=== PATIENT | female | born 1930 | race Caucasian/White ===

== ENCOUNTER 2016-09-18 11:31 | Inpatient (IN) | payer MEDICARE, BC ==
[~2016-09-18] VITALS: Ht 165.1 cm; Wt 51.5 kg
[~2016-09-18 11:31] MED LIST: ASPI-650 PO; CALC1TAB98 PO; DONE10TA7 PO; ERGO50007 PO; FESO4TAB PO; FURO40TA4 PO; LEVO50TA74 PO; LORA-396 PO; MAGN71.5 PO; METH1TAB33 PO; METO100T13 PO; NITR-53 PO; OMEP20CA9 PO; PENT100C6 PO; POTASSIUM CHLORIDE PO; SIMV20TA PO; SITA25TA3 PO; VICES PO; [UNRECOGNIZED DRUG - CODE] PO; [UNRECOGNIZED DRUG - OTHER] PO
[2016-09-18 13:29] VITALS: Ht 165.1 cm; Wt 51.5 kg
[2016-09-18 13:45] VITALS: BP 107/59; PULSE 73; RESP 18
[2016-09-18] MEDS ORDERED: GLUCOSE GEL 15 GRAM TUBE BUCCAL PRN (14:00)
[2016-09-18] MEDS ORDERED: NACL 0.9% 3 ML SYG IV SCH (14:00)
[2016-09-18] MEDS ORDERED: DEXTROSE 50% 50 ML SYRINGE IV PRN ×2 (14:00)
[2016-09-18] MEDS ORDERED: ONDANSETRON 4 MG INJ IV PRN (14:00)
[2016-09-18] MEDS ORDERED: GLUCOSE GEL 15 GRAM TUBE PO PRN ×2 (14:00)
[2016-09-18] MEDS ORDERED: GLUCAGON 1 MG INJ IM PRN (14:00)
[2016-09-18] MEDS: SOD CHLORIDE 0.45% 1,000 ML IV SCH (14:07)
[2016-09-18] MEDS: INSULIN ASPART [NOVOLOG] 3 ML PEN SC SCH ×2 (18:00→20:41)
[2016-09-18 19:12] LABS: ADD UMIC YES; URINE BILIRUBIN (Dip) NEGATIVE (NEGATIVE); URINE BLOOD (Dip) 2+ (NEGATIVE); URINE COLOR LT. YELLOW (YELLOW); URINE GLUCOSE (Dip) NEGATIVE (NEGATIVE); URINE KETONES (Dip) NEGATIVE (NEGATIVE); URINE LEUKOCYTE ESTERASE (Dip) 3+ (NEGATIVE); URINE NITRITE (Dip) NEGATIVE (NEGATIVE); URINE TOTAL PROTEIN (Dip) 1+ (NEGATIVE); URINE UROBILINOGEN (Dip) 0.2 E.U./dL (0.1-1.0)
[2016-09-18 19:17] VITALS: BP 145/59; RESP 16
[2016-09-18 19:27] LABS: BACTERIA,URINE MANY
--- NOTE | 2016-09-18 19:35 | HP ---
DATE OF ADMISSION: 09/18/2016 HISTORY OF PRESENT ILLNESS: This is one of several [facility] admissions for this 86-year-old woman admitted with chief complaint of confusion and dehydration as well as possible ur inary tract infection. Mrs. Samuel had been in her usual state of mind and health. Was seen last by myself in my office les s than a month ago; however, about a week ago family noticed she was slightly different and was not really drinking any fluids. Laboratory work done as an outpatient by visiting nurses showed that he r creatinine was creeping up from the 2s to the 4s and a urine culture was positive for a urinary tr act infection and her white count was markedly elevated as well. The patient was admitted for hydra tion and treatment with antibiotics and evaluating possible change in mental status. The patient badillo s had multiple falls. The patient's past history other than a recent, within the last several month s, admission for similar kind of problem has been one of gradually decreasing activity because of we akness. She has had severe interstitial cystitis which, eventually after multiple surgical attempts at correcting that, wound up with a bladder resection and ileal conduit going to the outside. She has also had cholecystectomy, hysterectomy and appendectomy done in the past. From a medical standp oint, she has been a diabetic for many years and has had chronic renal failure, either secondary to urinary tract issues or her diabetes since her diabetes has really not been terribly difficult to co ntrol. She has also had longstanding history of hypertension, and she has had a fair amount of ____ history of hypertension and recently a gradual cognitive disorder. CURRENT MEDICATIONS: 1. Omeprazole 10 mg daily. 2. Metoprolol 100 mg a day. 3. Simvastatin 20 mg a day. 4. Aspirin 81 mg. 5. Lorazepam 0.5 p.r.n. 6. Calcium carbonate. 7. Lasix. 8. Magnesium chloride. 9. Omeprazole 20 mg. 10. Synthroid 50 mcg. 11. For her diabetes she has been taking 25 mg of Januvia. 12. She takes Vitamin D 50,000 units. 13. Also takes a small amount of potassium. ALLERGIES: SHE IS ALLERGIC TO PENICILLIN, TETANUS, ____ AND SULFA DRUGS TO NAME A FEW. Up until e last several years; however, health was relatively stable. SOCIAL HISTORY: The patient is , has 2 daughters, 3 grandchildren. She does not smoke, occa sional use of alcohol or wine socially. Does drink some coffee, usually has no difficulty sleeping at night. FAMILY HISTORY: Both parents are . Father age 88 of an MA. Mother at 101 eventually of a heart issue, but had old age and longevity. One sister of diabetes. There is family history of diabetes and heart as well as hypertension. REVIEW OF SYSTEMS: HEENT: Other than the cognition has been complaining possibly of headaches lately, it is hard to te ll, just generally failing. CARDIORESPIRATORY: Denies any chest pain or shortness of breath. GASTROINTESTINAL: No melena or hematemesis. GENITOURINARY: Post cystectomy. GYNECOLOGIC: Post hysterectomy. MUSCULOSKELETAL: Positive for minor arthritic symptoms. NEUROPSYCHIATRIC: Unremarkable. GENERAL HEALTH: As above. PHYSICAL EXAMINATION: VITAL SIGNS: The patient's blood pressure was 107/59, pulse was 73 and regular, respirations were 1 8, temperature 97.5 and O2 sat 98% on room air. HEENT: Unremarkable although mucous membranes were somewhat dry. Examination of the head did not r eveal any obvious trauma. Eyes: Pupils were equal, reactive to light and accommodation. Fundi wer e poorly visualized. Tympanic membranes were negative. Nose was negative. Mouth was unremarkable other than Dry mucous membranes. NECK: Supple without any rigidity. Trachea was midline. Thyroid was within normal limits. Neck v eins were flat. Carotid pulses were equal. BACK: Unremarkable. CHEST: Symmetrical. BREASTS AND AXILLARY: Done within the last several months did not reveal any masses. LUNGS: Clear to percussion and auscultation. HEART: Revealed a regular rhythm. No obvious murmurs, rubs, or gallops being elicited. ABDOMEN: Soft, good bowel sounds were noted. Scars from prior surgery were noted. Umbilical herni a was noted. An ileal stoma was noted. GENITALIA: Normal female external genitalia. PELVIC AND RECTAL: Done by her hide curer or urologist did not reveal any significant abnormality . She is post hysterectomy. EXTREMITIES: Did not reveal any clubbing, edema or cyanosis. Peripheral pulses were physiologic. SKIN: Moist and warm without any eruptions. No gross lymphadenopathy was noted. NEUROLOGIC: Grossly intact. IMPRESSION: 1. Altered mental state with a history of head trauma. 2. Urinary tract infection with Escherichia coli resistant to most oral antibiotics. 3. Chronic renal failure. 4. Diabetes mellitus. 5. Hypertension. 6. Status post cystectomy, hysterectomy and cholecystectomy. DISCUSSION: Review of laboratory data done as an outpatient revealed an elevated white count approx imately 17,000, normal hemoglobin and hematocrit. Creatinine was 4.5, BUN 71. Urinalysis showed a urinary tract infection. Urine culture grew out 100,000 colonies of E. coli mostly resistant to any oral antibiotics. PLAN: To admit patient for further IV fluid hydration, management of her renal status and other iss ues with Dr. Clemente, who is her information security associate. We will also order a CAT scan of the brain withou t contrast to rule out a subdural since patient has had multiple falls recently with secondary head trauma. CONDITION ON ADMISSION: Stable. PROGNOSIS: Obviously dependent upon ultimate diagnosis. Dictated By: DOUG BRINK MD SS/NTS Conf#: [id number] DID#: [id number] CC: LUBNA CLEMENTE MD;*EndCC*
[2016-09-18] MEDS ORDERED: CEFEPIME 1GM/50 ML IVPB SCH (20:00)
[2016-09-18 20:19] LABS: BASOPHILS % 0.3 % (0.0-2.0); EOSINOPHILS # 0.2 10^3/ul (0.0-0.5); EOSINOPHILS % 1.1 % (0.0-7.0); HEMATOCRIT 32.2 % (37.0-47.0); HEMOGLOBIN 10.4 g/dl (12.0-16.0); LYMPHOCYTES # 1.4 10^3/ul (0.8-2.9); LYMPHOCYTES % 8.9 % (15.0-51.0); MEAN CORPUSCULAR HEMOGLOBIN 27.9 pg (29.0-33.0); MEAN CORPUSCULAR HGB CONC 32.4 g/dl (32.0-37.0); MEAN CORPUSCULAR VOLUME 86.1 fl (82.0-101.0); MEAN PLATELET VOLUME 7.4 fl (7.4-10.4); MONOCYTE # 1.1 10^3/ul (0.3-0.9); MONOCYTES % 6.7 % (0.0-11.0); PLATELET COUNT 370 10^3/UL (140-440); RED BLOOD COUNT 3.74 10^6/ul (4.20-5.40); RED CELL DISTRIBUTION WIDTH 16.9 % (11.5-14.5); UNCORRECTED WBC 15.7 10^3/ul (4.8-10.8); WHITE BLOOD COUNT 15.7 10^3/ul (4.8-10.8)
[2016-09-18 20:25] LABS: ALBUMIN 3.3 g/dl (3.3-4.9); CONDITION 1; LH ANALYZER COMMENTS 1; POTASSIUM 3.6 mmol/L (3.5-5.1)
[2016-09-18 20:27] LABS: CREATININE 6.08 mg/dl (0.44-1.00)
[2016-09-18 20:28] LABS: ALBUMIN/GLOBULIN RATIO 0.94; CALCIUM 6.5 mg/dl (8.4-10.2); PHOSPHORUS 6.1 mg/dl (2.5-4.9); TOTAL PROTEIN 6.8 g/dl (6.1-8.1)
[2016-09-18] MEDS: METOPROLOL 50 MG TAB PO SCH (20:41)
--- NOTE | 2016-09-18 20:44 | CONS ---
DATE OF ADMISSION: 09/18/2016 DATE OF CONSULTATION: TYPE OF CONSULTATION: Renal. REASON FOR CONSULTATION: Renal failure. Thank you, Dr. Alvarez, for asking me to participate in medical management of this patient. HISTORY OF PRESENT ILLNESS: This 86-year-old female who is well known to me was admitted today because of decreasing renal function. The patient has been at home under the care of her . She has had recent urinary tract infections. Her serum creatinine, which is usually in the 2.2 range, has risen to 4.5 two days ago. The patient has been confused according to the . The patient does suffer from dementia, and over the past 5 days, she has been more confused than usual. She was started on Cipro for a urinary tract infection. I think that the Cipro contributed to her confusion. I did speak to the and decreased the dose of Cipro. She is, according to him, more lucid today. The patient has a history of chronic kidney disease. She has had a cystectomy because of chronic pelvic pain and chronic interstitial cystitis. The patient's appetite has been decreased, and she has had poor oral fluid intake. She has not had any nausea, vomiting or diarrhea. The fluid in her urostomy bag has been cloudy. She did have a urine culture several days ago which grew E coli. It was not sensitive to the usual oral antibiotics, and SHE IS ALLERGIC TO PENICILLIN. She apparently has a RASH WHEN SHE TAKES PENICILLIN. PAST MEDICAL HISTORY: Remarkable for the following: Diabetes mellitus type 2, brain cyst, hypertension, recurrent urinary tract infections, interstitial cystitis, dementia, anemia of chronic disease, hypothyroidism. PAST SURGICAL HISTORY: Total abdominal hysterectomy with bilateral salpingo- oophorectomy, incidental appendectomy, cholecystectomy, cataract extraction, cystectomy with ileal loop creation. FAMILY HISTORY: Father of unknown causes, possibly kidney disease. Mother of diabetes mellitus and complications with possible kidney disease. SOCIAL HISTORY: The patient does not smoke. She drinks alcohol socially. CURRENT MEDICATIONS: Include the followin. Vitamin D 1000 units a day. 2. Zyrtec 10 mg a day. 3. Zoloft 50 mg a day. 4. Pantoprazole 40 mg a day. 5. Levothyroxine 100 mcg a day. 6. Metoprolol 100 mg a day. 7. Acetaminophen for pain. 8. Tramadol for pain 9. Lorazepam 0.5 mg daily for anxiety. 10. Lasix 40 mg a day. 11. Cipro 250 mg a day. PHYSICAL EXAMINATION: GENERAL: At this time reveals an elderly female. No apparent distress. The patient is confused to time. She does not remember the year. VITAL SIGNS: Temperature 97.8, pulse of 70, respirations 16, blood pressure 145 /59, O2 saturation 98% on room air. HEAD: Normocephalic. EYES: Extraocular muscles intact. NOSE AND MOUTH: Normal. NECK: Supple. No neck vein distention. LUNGS: Clear to auscultation. HEART: Regular rhythm. No murmurs, gallops or rubs. ABDOMEN: Soft. She does have a urostomy bag draining urine from an ileal conduit in the right mid quadrant. EXTREMITIES: No peripheral edema. NEUROLOGIC: Grossly intact. IMPRESSION: 1. Acute on chronic renal failure. I suspect some of her recent decrease in renal function is due to dehydration. 2. Dementia with recent change in mental status , probably due to side effect of Cipro. 3. Urinary tract infection. 4. Type 2 diabetes mellitus. 5. Hypertension. PLAN: 1. Routine laboratory tests, urine culture, urinalysis. 2. Start IV fluids.antibiotics 3. Chest x-ray, EKG. 4. Advance diet as tolerated. 5. I did discuss code status with the patient's . He requests a DNR STATUS. I ordered this. Dictated By: LUBNA CLEMENTE MD, ND/RENE Conf#: [id number] DID#: [id number] MTDGamal
[2016-09-18] MEDS: HEPARIN 5,000 UNIT/0.5 ML SYG SC SCH (20:50)
[2016-09-18] MEDS: CEFEPIME 1GM/50 ML (PMX) 50 ML IVPB SCH (20:52)
[2016-09-18] MEDS ORDERED: MAGNESIUM SULFATE 1 GM/D5W 100 ML IVPB ONE (22:00)
[2016-09-18 22:41] LABS: MAGNESIUM 0.8 mg/dl (1.7-2.5); THYROID STIMULATING HORMONE 0.033 MIU/L (0.465-4.680)
--- NOTE | 2016-09-18 23:58 | RADRPT ---
PROCEDURE: XR Chest. CLINICAL INDICATION: cough TECHNIQUE: Single AP portable chest COMPARISON: 07/17/2016 FINDINGS: Cardiac silhouette is mildly enlarged with coarse interstitial fibrotic changes and mild prominence of the pulmonary vascularity. Atherosclerotic calcification of the aorta. Left basilar scarring an d/or atelectasis. The lungs are clear without pleural effusion or focal consolidation. No pneumoth orax. The osseous structures and soft tissues are unremarkable. IMPRESSION: No evidence for active cardiopulmonary disease. Mild vascular prominence. RPTAT:AAJJ Cait Porter Physician Date Time Electronically viewed and signed by Physician Priscilla on 09/18/2016 23:57 PATRICA/
[2016-09-19] MEDS: SOD CHLORIDE 0.45% 1,000 ML IV SCH ×3 (01:12→19:38)
[2016-09-19] MEDS: ACCUCHECK XX SCH (02:00)
--- NOTE | 2016-09-19 02:52 | RADRPT ---
PROCEDURE: CT head, without contrast. CLINICAL INDICATION: Head trauma with clinical suspicion for subdural hematoma. TECHNIQUE: Noncontrast CT examination of the head, with axial, sagittal and coronal reformatted im ages. Automated dose exposure control was employed. CTDI: 44.19 mGy and DLP: 810.25 mGy-cm. COMPARISON: None. FINDINGS: Chronic changes of atrophy and small vessel disease white matter. Note acute hemorrhage. Subarachnoid spaces are substantially preserved and symmetric. Ventricles are unremarkable. Empty sella variant. No mass effect. [place]-white matter distinction is preserved without evident decreased attenuation t o suggest acute or recent infarct. Moderate bilateral maxillary sinusitis, left greater than right, with mucous retention cyst in the r ight maxillary sinus. Sinuses and osseous structures are otherwise unremarkable. IMPRESSION: 1. Moderate bilateral maxillary sinusitis. 2. Chronic changes of atrophy and small vessel disease white matter, and otherwise, no acute proces s in the head. RPTAT: [facility] Physician Jessica Date Time Electronically viewed and signed by Physician Jessica on 09/19/2016 02:51 RS/
[2016-09-19] MEDS: LEVOTHYROXINE 100 MCG TAB PO SCH (05:40)
[2016-09-19] MEDS: PANTOPRAZOLE (EC) 40 MG TAB PO SCH (05:40)
[2016-09-19 08:14] VITALS: BP 122/58; RESP 16
[2016-09-19] MEDS: INSULIN ASPART [NOVOLOG] 3 ML PEN SC SCH ×4 (08:15→20:29)
[2016-09-19 08:18] VITALS: BP 122/58; RESP 16
--- NOTE | 2016-09-19 09:02 | PN ---
DATE: 09/19/2016 TIME: Approximately 7:35 a.m. SUBJECTIVE: The patient is despondent, crying, asking for her to come and visit her. Appar ently he was here last night, but then left. Otherwise the night was fairly uneventful. PHYSICAL EXAMINATION VITAL SIGNS: Revealed the following: Temperature of 97.8, pulse of 70, blood pressure 145/59, resp iratory rate 16, and O2 sat 98%. HEENT: Unremarkable. LUNGS: Clear. HEART: Revealed a regular rhythm. ABDOMEN: Unremarkable. IMPRESSION: 1. Urinary tract infection. 2. Worsening chronic renal failure. 3. Diabetes mellitus type 2. 4. Status post cystectomy for chronic interstitial cystitis. 5. Cognitive disorder. DISCUSSION: Review of laboratory and other data revealed the following: The patient's white count has come down somewhat, but is still at 15.7. Her chemistries revealed a BUN of 80, creatinine of 6 .08, markedly worse renal failure from that before. TSH was 0.003, will get the rest of the thyroid function tests. Accu-Cheks have been within range. Magnesium was significantly low. PLAN: In terms of renal management per Dr. Caceres, in terms of worsening renal failure, antibio tic treatment has been initiated and hopefully the patient's symptoms secondary to urinary tract inf ection will improve. Condition at this point is stable. Dictated By: DOUG BRITT/RENE Conf#: [id number] DID#: [id number]
--- NOTE | 2016-09-19 09:04 | CONS ---
Date/Time of Note Date/Time of Note DATE: 09/19/16 TIME: 08:51 Assessment/Plan Assessment/Plan Chief Complaint/Hosp Course 1.acute renal failure superimposed on CKD , mostly due to dehydration . she is getting IV fluids . 2.dementia , with more confusion today 3. anemia of CKD 4.UTI on cefepime , urine C & S done before admission grew e coli sensitive to Cefepime . 5. low Mag , being replaced Problems: Consultation Date/Type/Reason Admit Date/Time Sep 18, 2016 at 12:23 Initial Consult Date 24 HR Interval Summary Free Text/Dictation She is awake but confused . she is disoriented to time and place . Exam/Review of Systems Vital Signs Vitals Vital Signs Date Time Temp Pulse Resp B/P Pulse Ox O2 Delivery O2 Flow Rate FiO2 09/19/16 08:18 97.9 67 16 122/58 90 Intake and Output 09/18/16 09/18/16 09/19/16 15:00 23:00 07:00 Intake Total 930 ml 1000 ml Output Total 600 ml 400 ml Balance 330 ml 600 ml Exam Constitutional: alert Psych: confusion Respiratory: clear to auscultation Cardiovascular: regular rate and rhythm Gastrointestinal: soft Musculoskeletal: nl extremities to inspection Results Result Diagram: 09/18/16195409/18/161954 Results 24 hrs Laboratory Tests Test 09/18/16 17:21 09/18/16 18:50 09/18/16 19:55 09/18/16 20:38 Bedside Glucose 138 112 Urine Bacteria MANY Urine Bilirubin NEGATIVE Urine Clarity CLOUDY Urine Color LT. YELLOW Urine Glucose NEGATIVE Urine Hemoglobin 2+ H Urine Ketones NEGATIVE Urine Leukocyte Esterase 3+ H Urine Microscopic RBC 5-10 Urine Microscopic WBC >200 Urine Nitrite NEGATIVE Urine Specific [place] 1.015 Urine Total Protein 1+ H Urine Urobilinogen 0.2 E.U./dL Urine pH 5.5 Alanine Aminotransferase (ALT/SGPT) 18 Albumin 3.3 Albumin/Globulin Ratio 0.94 Alkaline Phosphatase 109 Anion Gap 24 H Aspartate Amino Transf (AST/SGOT) 15 Basophils # 0.0 Basophils % 0.3 Blood Morphology Comment Blood Urea Nitrogen 80 H Calcium Level 6.5 L Carbon Dioxide Level 10 L Chloride Level 111 H Creatinine 6.08 H Direct Bilirubin 0.00 Eosinophils # 0.2 Eosinophils % 1.1 Globulin 3.50 H Glucose Level 113 Hematocrit 32.2 L Hemoglobin 10.4 L Indirect Bilirubin 0.0 Lymphocytes # 1.4 Lymphocytes % 8.9 L Magnesium Level 0.8 *L Mean Corpuscular Hemoglobin 27.9 L Mean Corpuscular Hemoglobin Concent 32.4 Mean Corpuscular Volume 86.1 Mean Platelet Volume 7.4 Monocytes # 1.1 H Monocytes % 6.7 Neutrophils # 13.0 H Neutrophils % 83.0 H Nucleated Red Blood Cells # 0.0 Nucleated Red Blood Cells % 0.0 Parathyroid Hormone (Intact) Phosphorus Level 6.1 H Platelet Count 370 # Potassium Level 3.6 Red Blood Count 3.74 L Red Cell Distribution Width 16.9 H Sodium Level 141 Thyroid Stimulating Hormone (TSH) 0.033 L Total Bilirubin 0.0 L Total Protein 6.8 White Blood Count 15.7 #H Test 09/19/16 04:50 09/19/16 08:16 Magnesium Level 1.3 L Bedside Glucose 96 Medications Medications Current Medications Sodium Chloride (1/2 NS) 1,000 ml @ 100 mls/hr Q10H IV Last administered on 01:12; Admin Dose 100 MLS/HR; Start 09/18/16 at 13:38 Ondansetron HCl (Zofran Inj) 4 mg Q6H PRN IV NAUSEA AND/OR VOMITING; Start 09/18 at 14:00 Acetaminophen (Tylenol Tab) 650 mg Q6H PRN PO PAIN LEVEL 1-3 OR FEVER; Start at 14:00 Pantoprazole (Protonix Tab) 40 mg DAILY@06 PO Last administered on 09/19/16 05: 40; Admin Dose 40 MG; Start 09/19/16 at 06:00 Heparin Sodium (Porcine) (Heparin (5000 Units/0.5 ml)) 5,000 unit Q12 SC Last administered on 09/18/16 20:50; Admin Dose 5,000 UNIT; Start 09/18/16 at 21:00 Levothyroxine Sodium (Synthroid) 100 mcg DAILY@06 PO Last administered on 05:40; Admin Dose 100 MCG; Start 09/19/16 at 06:00 Tramadol HCl (Ultram) 50 mg BID PRN PO pain; Start 09/18/16 at 14:00 Lorazepam (Ativan) 0.5 mg BID PRN PO ANXIETY; Start 09/18/16 at 14:00 Cholecalciferol (Vitamin D) 1,000 unit DAILY PO ; Start 09/19/16 at 09:00 Loratadine (Claritin) 10 mg DAILY PO ; Start 09/19/16 at 09:00 Metoprolol Tartrate (Lopressor) 50 mg BID PO Last administered on 09/18/16 20: 41; Admin Dose 50 MG; Start 09/18/16 at 21:00 Sertraline HCl (Zoloft) 50 mg DAILY PO ; Start 09/19/16 at 09:00 Diagnostic Test (Pha) (Accucheck) 1 ea 02 XX ; Start 09/19/16 at 02:00 Miscellaneous Information 1 ea NOTE XX ; Start 09/18/16 at 14:00 Glucose (Glutose) 15 gm Q15M PRN PO DECREASED GLUCOSE; Start 09/18/16 at 14:00 Glucose (Glutose) 22.5 gm Q15M PRN PO DECREASED GLUCOSE; Start 09/18/16 at 14:00 Dextrose (D50w Syringe) 25 ml Q15M PRN IV DECREASED GLUCOSE; Start 09/18/16 at 14:00 Dextrose (D50w Syringe) 50 ml Q15M PRN IV DECREASED GLUCOSE; Start 09/18/16 at 14:00 Glucagon (Glucagen) 1 mg Q15M PRN IM DECREASED GLUCOSE; Start 09/18/16 at 14:00 Glucose 15 gm 15 gm Q15M PRN BUCCAL DECREASED GLUCOSE; Start 09/18/16 at 14:00 Cefepime HCl (Maxipime 1gm/50 ml (Pmx)) 50 ml @ 100 mls/hr Q24H IVPB Last administered on 09/18/16 20:52; Admin Dose 100 MLS/HR; Start 09/18/16 at 20:00 LUBNA CLEMENTE MD Sep 19, 2016 09:01
[2016-09-19 09:37] LABS: ALBUMIN 3.3 g/dl (3.3-4.9)
[2016-09-19 09:38] LABS: POTASSIUM 3.3 mmol/L (3.5-5.1)
[2016-09-19 09:40] LABS: ALBUMIN/GLOBULIN RATIO 0.94; CALCIUM 6.3 mg/dl (8.4-10.2); CREATININE 5.14 mg/dl (0.44-1.00); TOTAL PROTEIN 6.8 g/dl (6.1-8.1)
[2016-09-19] MEDS ORDERED: MAGNESIUM SULFATE 2 GM/50 ML 50 ML IVPB ONE (10:00)
[2016-09-19 10:36] VITALS: BP 127/53; PULSE 67
[2016-09-19] MEDS: CHOLECALCIFEROL 1,000 UNIT TAB PO SCH (10:37)
[2016-09-19] MEDS: LORATADINE 10 MG TAB PO SCH (10:37)
[2016-09-19] MEDS: METOPROLOL 50 MG TAB PO SCH ×2 (10:38→20:32)
[2016-09-19] MEDS: SERTRALINE 50 MG TAB PO SCH (10:38)
[2016-09-19] MEDS: HEPARIN 5,000 UNIT/0.5 ML SYG SC SCH ×2 (10:40→20:28)
[2016-09-19] MEDS: CALCITRIOL 0.25 MCG CAP PO SCH (12:23)
--- NOTE | 2016-09-19 12:24 | RADRPT ---
Vent Rate: 61 bpm RR Interval: 0 msec MI Interval: 164 msec QRS Duration: 80 msec QT Interval: 464 msec QTC Interval: 467 msec P-R-T [place]: 75 - 49 - 53 degrees Normal sinus rhythm Normal ECG Electronically Signed By: Edward Hill [id number]
[2016-09-19] MEDS: CALCIUM ACETATE 667 MG CAP PO SCH ×2 (13:03→18:00)
[2016-09-19 19:22] VITALS: BP 137/61; RESP 16
[2016-09-19] MEDS: CEFEPIME 1GM/50 ML (PMX) 50 ML IVPB SCH (20:19)
[2016-09-19] MEDS: NYSTATIN 30 GM POWDER BTL TOP SCH (20:32)
[2016-09-20] MEDS: SOD CHLORIDE 0.45% 1,000 ML IV SCH (01:22)
[2016-09-20] MEDS: ACCUCHECK XX SCH (02:00)
[2016-09-20] MEDS: traMADol 50 MG TAB PO PRN (02:08)
[2016-09-20] MEDS: PANTOPRAZOLE (EC) 40 MG TAB PO SCH (06:07)
[2016-09-20] MEDS: LEVOTHYROXINE 100 MCG TAB PO SCH (06:07)
[2016-09-20 06:17] LABS: BASOPHILS % 0.1 % (0.0-2.0); EOSINOPHILS # 0.4 10^3/ul (0.0-0.5); EOSINOPHILS % 2.6 % (0.0-7.0); HEMATOCRIT 33.6 % (37.0-47.0); HEMOGLOBIN 11.1 g/dl (12.0-16.0); LYMPHOCYTES # 1.4 10^3/ul (0.8-2.9); LYMPHOCYTES % 9.7 % (15.0-51.0); MEAN CORPUSCULAR HEMOGLOBIN 28.5 pg (29.0-33.0); MEAN CORPUSCULAR HGB CONC 33.1 g/dl (32.0-37.0); MEAN PLATELET VOLUME 7.9 fl (7.4-10.4); MONOCYTES % 7.4 % (0.0-11.0); NEUTROPHIL # 11.2 10^3/ul (1.6-7.5); NEUTROPHILS % 80.2 % (39.0-77.0); PLATELET COUNT 356 10^3/UL (140-440); RED BLOOD COUNT 3.91 10^6/ul (4.20-5.40); RED CELL DISTRIBUTION WIDTH 17.1 % (11.5-14.5)
[2016-09-20 06:34] LABS: CONDITION 1; LH ANALYZER COMMENTS 1
[2016-09-20 06:53] LABS: ALBUMIN 3.1 g/dl (3.3-4.9); POTASSIUM 3.5 mmol/L (3.5-5.1)
[2016-09-20 06:55] LABS: CREATININE 3.78 mg/dl (0.44-1.00)
[2016-09-20 06:56] LABS: ALBUMIN/GLOBULIN RATIO 0.91; TOTAL PROTEIN 6.5 g/dl (6.1-8.1)
[2016-09-20 07:54] VITALS: BP 125/60; RESP 18
[2016-09-20] MEDS: INSULIN ASPART [NOVOLOG] 3 ML PEN SC SCH ×4 (08:15→21:00)
[2016-09-20 08:37] LABS: FREE T3 4.36 pg/ml (2.77-5.27)
[2016-09-20 08:50] LABS: THYROID STIMULATING HORMONE 0.023 MIU/L (0.465-4.680)
[2016-09-20] MEDS: METOPROLOL 50 MG TAB PO SCH ×2 (09:00→21:52)
--- NOTE | 2016-09-20 09:13 | CONS ---
Date/Time of Note Date/Time of Note DATE: 09/20/16 TIME: 09:08 Consult Date/Type/Reason Admit Date/Time Sep 18, 2016 at 12:23 Initial Consult Date Type of Consultation: renal Subjective Lethargic but arouseable. Not in pain. Objective Vital Signs Date Time Temp Pulse Resp B/P Pulse Ox O2 Delivery O2 Flow Rate FiO2 09/20/16 07:54 98.1 65 18 125/60 96 Intake and Output 09/19/16 09/19/16 09/20/16 15:00 23:00 07:00 Intake Total 650 ml 1090 ml 400 ml Output Total 650 ml 600 ml Balance 650 ml 440 ml -200 ml Results/Medications Result Diagram: 09/20/16 0459 09/20/16 0459 Results 24 hrs Laboratory Tests Test 09/19/16 09:18 09/19/16 12:06 09/19/16 17:28 09/19/16 20:25 Alanine Aminotransferase (ALT/SGPT) 24 Albumin 3.3 Albumin/Globulin Ratio 0.94 Alkaline Phosphatase 111 Anion Gap 21 H Aspartate Amino Transf (AST/SGOT) 16 Blood Urea Nitrogen 73 H Calcium Level 6.3 L Carbon Dioxide Level 10 L Chloride Level 111 H Creatinine 5.14 H Direct Bilirubin 0.00 Globulin 3.50 H Glucose Level 94 Indirect Bilirubin 0.0 Potassium Level 3.3 L Sodium Level 139 Total Bilirubin 0.0 L Total Protein 6.8 Bedside Glucose 106 112 159 Test 09/20/16 04:59 Alanine Aminotransferase (ALT/SGPT) 21 Albumin 3.1 L Albumin/Globulin Ratio 0.91 Alkaline Phosphatase 117 Anion Gap 22 H Aspartate Amino Transf (AST/SGOT) 16 Basophils # 0.0 Basophils % 0.1 Blood Morphology Comment Blood Urea Nitrogen 63 H Calcium Level 7.0 L Carbon Dioxide Level 10 L Chloride Level 111 H Creatinine 3.78 #H Direct Bilirubin 0.00 Eosinophils # 0.4 Eosinophils % 2.6 Free Thyroxine 1.34 Free Triiodothyronine (T3) pg/mL 4.36 Globulin 3.40 H Glucose Level 86 Hematocrit 33.6 L Hemoglobin 11.1 L Indirect Bilirubin 0.0 Lymphocytes # 1.4 Lymphocytes % 9.7 L Magnesium Level 2.0 Mean Corpuscular Hemoglobin 28.5 L Mean Corpuscular Hemoglobin Concent 33.1 Mean Corpuscular Volume 86.0 Mean Platelet Volume 7.9 Monocytes # 1.0 H Monocytes % 7.4 Neutrophils # 11.2 H Neutrophils % 80.2 H Nucleated Red Blood Cells # 0.0 Nucleated Red Blood Cells % 0.0 Platelet Count 356 Potassium Level 3.5 Red Blood Count 3.91 L Red Cell Distribution Width 17.1 H Sodium Level 139 Thyroid Stimulating Hormone (TSH) 0.023 L Total Bilirubin 0.0 L Total Protein 6.5 White Blood Count 14.0 H Medications Current Medications Sodium Chloride (1/2 NS) 1,000 ml @ 100 mls/hr Q10H IV Last administered on 01:22; Admin Dose 100 MLS/HR; Start 09/18/16 at 13:38 Ondansetron HCl (Zofran Inj) 4 mg Q6H PRN IV NAUSEA AND/OR VOMITING; Start 09/18 at 14:00 Acetaminophen (Tylenol Tab) 650 mg Q6H PRN PO PAIN LEVEL 1-3 OR FEVER; Start at 14:00 Pantoprazole (Protonix Tab) 40 mg DAILY@06 PO Last administered on 09/20/16 06: 07; Admin Dose 40 MG; Start 09/19/16 at 06:00 Heparin Sodium (Porcine) (Heparin (5000 Units/0.5 ml)) 5,000 unit Q12 SC Last administered on 09/19/16 20:28; Admin Dose 5,000 UNIT; Start 09/18/16 at 21:00 Levothyroxine Sodium (Synthroid) 100 mcg DAILY@06 PO Last administered on 06:07; Admin Dose 100 MCG; Start 09/19/16 at 06:00 Tramadol HCl (Ultram) 50 mg BID PRN PO pain Last administered on 09/20/16 02:08 ; Admin Dose 50 MG; Start 09/18/16 at 14:00 Lorazepam (Ativan) 0.5 mg BID PRN PO ANXIETY; Start 09/18/16 at 14:00 Cholecalciferol (Vitamin D) 1,000 unit DAILY PO Last administered on 09/19/16 10:37; Admin Dose 1,000 UNIT; Start 09/19/16 at 09:00 Loratadine (Claritin) 10 mg DAILY PO Last administered on 09/19/16 10:37; Admin Dose 10 MG; Start 09/19/16 at 09:00 Metoprolol Tartrate (Lopressor) 50 mg BID PO Last administered on 09/19/16 20: 32; Admin Dose 50 MG; Start 09/18/16 at 21:00 Sertraline HCl (Zoloft) 50 mg DAILY PO Last administered on 09/19/16 10:38; Admin Dose 50 MG; Start 09/19/16 at 09:00 Diagnostic Test (Pha) (Accucheck) 1 ea 02 XX ; Start 09/19/16 at 02:00 Miscellaneous Information 1 ea NOTE XX ; Start 09/18/16 at 14:00 Glucose (Glutose) 15 gm Q15M PRN PO DECREASED GLUCOSE; Start 09/18/16 at 14:00 Glucose (Glutose) 22.5 gm Q15M PRN PO DECREASED GLUCOSE; Start 09/18/16 at 14:00 Dextrose (D50w Syringe) 25 ml Q15M PRN IV DECREASED GLUCOSE; Start 09/18/16 at 14:00 Dextrose (D50w Syringe) 50 ml Q15M PRN IV DECREASED GLUCOSE; Start 09/18/16 at 14:00 Glucagon (Glucagen) 1 mg Q15M PRN IM DECREASED GLUCOSE; Start 09/18/16 at 14:00 Glucose 15 gm 15 gm Q15M PRN BUCCAL DECREASED GLUCOSE; Start 09/18/16 at 14:00 Cefepime HCl (Maxipime 1gm/50 ml (Pmx)) 50 ml @ 100 mls/hr Q24H IVPB Last administered on 09/19/16 20:19; Admin Dose 100 MLS/HR; Start 09/18/16 at 20:00 Calcitriol (Rocaltrol) 0.25 mcg DAILY PO Last administered on 09/19/16 12:23; Admin Dose 0.25 MCG; Start 09/19/16 at 10:00 Nystatin (Nystatin Powder) 1 applic BID TOP Last administered on 09/19/16 20:32 ; Admin Dose 1 APPLIC; Start 09/19/16 at 21:00 Heent: Neg lungs: clear cor: regular and no edema gi: abdomen soft Extrems: no edema Assessment/Plan Chief Complaint/Hosp Course urinary infection and dehydration improving renal function metabolic acidosis Plan: add bicarb to iv fluids f/up labs Problems: CRISTI AZUL MD Sep 20, 2016 09:13
[2016-09-20] MEDS: LORATADINE 10 MG TAB PO SCH (09:29)
[2016-09-20] MEDS: CALCIUM ACETATE 667 MG CAP PO SCH ×3 (09:29→18:33)
[2016-09-20] MEDS: CALCITRIOL 0.25 MCG CAP PO SCH (09:29)
[2016-09-20] MEDS: SERTRALINE 50 MG TAB PO SCH (09:31)
[2016-09-20] MEDS: NYSTATIN 30 GM POWDER BTL TOP SCH ×2 (09:31→21:55)
[2016-09-20] MEDS: CHOLECALCIFEROL 1,000 UNIT TAB PO SCH (09:31)
[2016-09-20] MEDS: HEPARIN 5,000 UNIT/0.5 ML SYG SC SCH ×2 (09:33→22:04)
--- NOTE | 2016-09-20 11:05 | PN ---
Date/Time of Note Date/Time of Note DATE: 09/20/16 TIME: 11:00 Assessment/Plan VTE Prophylaxis VTE Prophylaxis Intervention: heparin Lines/Catheters IV C[facility]ter Type (from [facility]): Peripheral IV Urinary Cath still in place: No Assessment/Plan Problems: (1) Metabolic acidosis with normal anion gap and failure of bicarbonate regeneration Status: Acute Comment: Nephrology adding NaHCO3 to IVF. (2) Major depressive disorder, single episode, mild Status: Acute Comment: On sertraline (3) Thyrotoxicosis, exogenous iatrogenic Status: Acute Comment: On LT4 100 mcg/d for chronic hypothyroidism. 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 Cont. cefepime. (5) Recurrent UTI Status: Acute Comment: Recurrent. Cont. cefepime. (6) [id number] renal failure Status: Acute Comment: Improving. Back to baseline. Cont. care by nephrology (7) Type 2 diabetes mellitus with diabetic chronic kidney disease Status: Chronic Comment: Glucose levels controlled. Not even on linagliptin currently. Will monitor. (8) Mild cognitive disorder Status: Chronic Comment: Worse w/ acute illness. Will monitor mental status. Subjective 24 Hr Interval Summary Subjective hx not possible: other (waking from nap, confused and non-directed when answering questions) Exam/Review of Systems Vital Signs Vitals VS - Last 72 Hours, by Label Date Time Temp Pulse Resp B/P Pulse Ox O2 Delivery O2 Flow Rate FiO2 09/20/16 07:54 98.1 65 18 125/60 96 09/19/16 19:22 98.4 63 16 137/61 96 09/19/16 10:36 67 127/53 09/19/16 08:18 97.9 67 16 122/58 90 09/19/16 08:14 97.9 67 16 122/58 90 09/18/16 19:17 97.8 70 16 145/59 98 09/18/16 13:45 97.5 73 18 107/59 98 Vital Signs Date Time Temp Pulse Resp B/P Pulse Ox O2 Delivery O2 Flow Rate FiO2 09/20/16 07:54 98.1 65 18 125/60 96 Intake and Output 09/19/16 09/19/16 09/20/16 15:00 23:00 07:00 Intake Total 650 ml 1090 ml 400 ml Output Total 650 ml 600 ml Balance 650 ml 440 ml -200 ml Exam Constitutional: frail, No alert, No oriented Psych: confusion Respiratory: clear to auscultation, normal air movement Cardiovascular: nl pulses, regular rate and rhythm, No edema, No murmurs/extra sounds, No rub Gastrointestinal: bowel sounds, nl liver, spleen, non-tender, soft, No mass, No rebound or guarding Musculoskeletal: nl extremities to inspection Extremities: normal pulses, No clubbing, No cyanosis, No edema Neurological: confused, lethargic, nl speech, nl strength Additional Comments Bedside Glucose - 72 Hours Test 09/18/16 17:21 09/18/16 20:38 09/19/16 08:16 09/19/16 12:06 Bedside Glucose 138mg/dL (70-220) 112mg/dL (70-220) 96mg/dL (70-220) 106mg/dL (70-220) Test 09/19/16 17:28 09/19/16 20:25 09/20/16 09:28 Bedside Glucose 112mg/dL (70-220) 159mg/dL (70-220) 82mg/dL (70-220) Results Result Diagram: 09/20/16 0459 09/20/16 0459 Results 24 hrs Laboratory Tests Test 09/19/16 12:06 09/19/16 17:28 09/19/16 20:25 09/20/16 04:59 Bedside Glucose 106 112 159 Alanine Aminotransferase (ALT/SGPT) 21 Albumin 3.1 L Albumin/Globulin Ratio 0.91 Alkaline Phosphatase 117 Anion Gap 22 H Aspartate Amino Transf (AST/SGOT) 16 Basophils # 0.0 Basophils % 0.1 Blood Morphology Comment Blood Urea Nitrogen 63 H Calcium Level 7.0 L Carbon Dioxide Level 10 L Chloride Level 111 H Creatinine 3.78 #H Direct Bilirubin 0.00 Eosinophils # 0.4 Eosinophils % 2.6 Free Thyroxine 1.34 Free Triiodothyronine (T3) pg/mL 4.36 Globulin 3.40 H Glucose Level 86 Hematocrit 33.6 L Hemoglobin 11.1 L Indirect Bilirubin 0.0 Lymphocytes # 1.4 Lymphocytes % 9.7 L Magnesium Level 2.0 Mean Corpuscular Hemoglobin 28.5 L Mean Corpuscular Hemoglobin Concent 33.1 Mean Corpuscular Volume 86.0 Mean Platelet Volume 7.9 Monocytes # 1.0 H Monocytes % 7.4 Neutrophils # 11.2 H Neutrophils % 80.2 H Nucleated Red Blood Cells # 0.0 Nucleated Red Blood Cells % 0.0 Platelet Count 356 Potassium Level 3.5 Red Blood Count 3.91 L Red Cell Distribution Width 17.1 H Sodium Level 139 Thyroid Stimulating Hormone (TSH) 0.023 L Total Bilirubin 0.0 L Total Protein 6.5 White Blood Count 14.0 H Test 09/20/16 09:28 Bedside Glucose 82 Medications Medications Current Medications Ondansetron HCl (Zofran Inj) 4 mg Q6H PRN IV NAUSEA AND/OR VOMITING; Start 09/18 at 14:00 Acetaminophen (Tylenol Tab) 650 mg Q6H PRN PO PAIN LEVEL 1-3 OR FEVER; Start at 14:00 Pantoprazole (Protonix Tab) 40 mg DAILY@06 PO Last administered on 09/20/16 06: 07; Admin Dose 40 MG; Start 09/19/16 at 06:00 Heparin Sodium (Porcine) (Heparin (5000 Units/0.5 ml)) 5,000 unit Q12 SC Last administered on 09/20/16 09:33; Admin Dose 5,000 UNIT; Start 09/18/16 at 21:00 Tramadol HCl (Ultram) 50 mg BID PRN PO pain Last administered on 09/20/16 02:08 ; Admin Dose 50 MG; Start 09/18/16 at 14:00 Lorazepam (Ativan) 0.5 mg BID PRN PO ANXIETY; Start 09/18/16 at 14:00 Cholecalciferol (Vitamin D) 1,000 unit DAILY PO Last administered on 09/20/16 09:31; Admin Dose 1,000 UNIT; Start 09/19/16 at 09:00 Loratadine (Claritin) 10 mg DAILY PO Last administered on 09/20/16 09:29; Admin Dose 10 MG; Start 09/19/16 at 09:00 Metoprolol Tartrate (Lopressor) 50 mg BID PO Last administered on 09/19/16 20: 32; Admin Dose 50 MG; Start 09/18/16 at 21:00 Sertraline HCl (Zoloft) 50 mg DAILY PO Last administered on 09/20/16 09:31; Admin Dose 50 MG; Start 09/19/16 at 09:00 Diagnostic Test (Pha) (Accucheck) 1 ea 02 XX ; Start 09/19/16 at 02:00 Miscellaneous Information 1 ea NOTE XX ; Start 09/18/16 at 14:00 Glucose (Glutose) 15 gm Q15M PRN PO DECREASED GLUCOSE; Start 09/18/16 at 14:00 Glucose (Glutose) 22.5 gm Q15M PRN PO DECREASED GLUCOSE; Start 09/18/16 at 14:00 Dextrose (D50w Syringe) 25 ml Q15M PRN IV DECREASED GLUCOSE; Start 09/18/16 at 14:00 Dextrose (D50w Syringe) 50 ml Q15M PRN IV DECREASED GLUCOSE; Start 09/18/16 at 14:00 Glucagon (Glucagen) 1 mg Q15M PRN IM DECREASED GLUCOSE; Start 09/18/16 at 14:00 Glucose 15 gm 15 gm Q15M PRN BUCCAL DECREASED GLUCOSE; Start 09/18/16 at 14:00 Cefepime HCl (Maxipime 1gm/50 ml (Pmx)) 50 ml @ 100 mls/hr Q24H IVPB Last administered on 09/19/16 20:19; Admin Dose 100 MLS/HR; Start 09/18/16 at 20:00 Calcitriol (Rocaltrol) 0.25 mcg DAILY PO Last administered on 09/20/16 09:29; Admin Dose 0.25 MCG; Start 09/19/16 at 10:00 Nystatin 1 applic 1 applic BID TOP Last administered on 09/20/16 09:31; Admin Dose 1 APPLIC; Start 09/19/16 at 21:00 Sodium Bicarbonate/ Sodium Chloride (Na Bicarb/1/2 NS) 1,100 ml @ 75 mls/hr [id number] IV ; Start 09/20/16 at 10:30 Levothyroxine Sodium (Synthroid) 75 mcg DAILY@06 PO ; Start 09/21/16 at 06:00 SHANIA RUCKER MD Sep 20, 2016 11:04
[2016-09-20] MEDS: SODIUM BICARBONATE (IV ADD) 100 MEQ in SOD CHLORIDE 0.45% 1,000 ML IV SCH (12:36)
[2016-09-20 19:10] VITALS: BP 145/63; RESP 20
[2016-09-20] MEDS: CEFEPIME 1GM/50 ML (PMX) 50 ML IVPB SCH (22:42)
[2016-09-21] MEDS: SODIUM BICARBONATE (IV ADD) 100 MEQ in SOD CHLORIDE 0.45% 1,000 ML IV SCH ×2 (01:10→05:21)
[2016-09-21] MEDS: ACCUCHECK XX SCH (02:00)
[2016-09-21] MEDS: PANTOPRAZOLE (EC) 40 MG TAB PO SCH (05:21)
[2016-09-21] MEDS: LEVOTHYROXINE 75 MCG TAB PO SCH (05:21)
[2016-09-21 05:49] LABS: BASOPHILS % 0.1 % (0.0-2.0); EOSINOPHILS # 0.3 10^3/ul (0.0-0.5); EOSINOPHILS % 3.3 % (0.0-7.0); HEMATOCRIT 32.4 % (37.0-47.0); HEMOGLOBIN 10.6 g/dl (12.0-16.0); LYMPHOCYTES # 1.3 10^3/ul (0.8-2.9); LYMPHOCYTES % 12.3 % (15.0-51.0); MEAN CORPUSCULAR HEMOGLOBIN 28.4 pg (29.0-33.0); MEAN CORPUSCULAR HGB CONC 32.7 g/dl (32.0-37.0); MEAN CORPUSCULAR VOLUME 86.9 fl (82.0-101.0); MEAN PLATELET VOLUME 7.6 fl (7.4-10.4); MONOCYTE # 0.9 10^3/ul (0.3-0.9); MONOCYTES % 8.6 % (0.0-11.0); NEUTROPHIL # 7.8 10^3/ul (1.6-7.5); NEUTROPHILS % 75.7 % (39.0-77.0); PLATELET COUNT 333 10^3/UL (140-440); RED BLOOD COUNT 3.73 10^6/ul (4.20-5.40); RED CELL DISTRIBUTION WIDTH 16.9 % (11.5-14.5); UNCORRECTED WBC 10.3 10^3/ul (4.8-10.8); WHITE BLOOD COUNT 10.3 10^3/ul (4.8-10.8)
[2016-09-21 06:08] LABS: CONDITION 1; LH ANALYZER COMMENTS 1
[2016-09-21 06:11] LABS: POTASSIUM 3.3 mmol/L (3.5-5.1)
[2016-09-21 06:14] LABS: CREATININE 2.54 mg/dl (0.44-1.00)
[2016-09-21 06:15] LABS: CALCIUM 7.5 mg/dl (8.4-10.2)
--- NOTE | 2016-09-21 07:36 | CONS ---
Date/Time of Note Date/Time of Note DATE: 09/21/16 TIME: 07:30 Assessment/Plan Assessment/Plan Chief Complaint/Hosp Course urinary infection and dehydration improving renal function metabolic acidosis Plan: add bicarb to iv fluids f/up labs Problems: Additional Assessment/Plan Improved renal function ongoing metabolic acidosis-renal related and should correct with bicarb hypernatremia-needs more free water hypoklamia-k replete. Consultation Date/Type/Reason Admit Date/Time Sep 18, 2016 at 12:23 Type of Consultation: renal Reason for Consultation Renal insufficiency and metabolic acidosis 24 HR Interval Summary Subjective hx not possible: other (More alert today. She says she is thirsty.) Detailed Summary Eyes: no complaints Respiratory: no complaints Cardiovascular: no complaints Gastrointestinal: no complaints Skin: no complaints Exam/Review of Systems Vital Signs Vitals Vital Signs Date Time Temp Pulse Resp B/P Pulse Ox O2 Delivery O2 Flow Rate FiO2 09/20/16 19:10 98.2 71 20 145/63 100 Intake and Output 09/20/16 09/20/16 09/21/16 15:00 23:00 07:00 Intake Total 1000 ml 570 ml 920 ml Output Total 575 ml 700 ml Balance 1000 ml -5 ml 220 ml Results Result Diagram: 09/21/16 0450 09/21/16 0450 Results 24 hrs Laboratory Tests Test 09/20/16 09:28 09/20/16 10:52 09/20/16 12:33 09/20/16 17:39 Bedside Glucose 82 76 102 85 Test 09/20/16 21:54 09/21/16 04:50 Bedside Glucose 90 Anion Gap 21 H Basophils # 0.0 Basophils % 0.1 Blood Morphology Comment Blood Urea Nitrogen 51 H Calcium Level 7.5 L Carbon Dioxide Level 11 L Chloride Level 116 H Creatinine 2.54 #H Eosinophils # 0.3 Eosinophils % 3.3 Glucose Level 78 Hematocrit 32.4 L Hemoglobin 10.6 L Lymphocytes # 1.3 Lymphocytes % 12.3 L Mean Corpuscular Hemoglobin 28.4 L Mean Corpuscular Hemoglobin Concent 32.7 Mean Corpuscular Volume 86.9 Mean Platelet Volume 7.6 Monocytes # 0.9 Monocytes % 8.6 Neutrophils # 7.8 H Neutrophils % 75.7 Nucleated Red Blood Cells # 0.0 Nucleated Red Blood Cells % 0.0 Platelet Count 333 Potassium Level 3.3 L Red Blood Count 3.73 L Red Cell Distribution Width 16.9 H Sodium Level 145 H White Blood Count 10.3 # Medications Medications Current Medications Ondansetron HCl (Zofran Inj) 4 mg Q6H PRN IV NAUSEA AND/OR VOMITING; Start 09/18 at 14:00 Acetaminophen (Tylenol Tab) 650 mg Q6H PRN PO PAIN LEVEL 1-3 OR FEVER; Start at 14:00 Pantoprazole (Protonix Tab) 40 mg DAILY@06 PO Last administered on 09/21/16 05: 21; Admin Dose 40 MG; Start 09/19/16 at 06:00 Heparin Sodium (Porcine) (Heparin (5000 Units/0.5 ml)) 5,000 unit Q12 SC Last administered on 09/20/16 22:04; Admin Dose 5,000 UNIT; Start 09/18/16 at 21:00 Tramadol HCl (Ultram) 50 mg BID PRN PO pain Last administered on 09/20/16 02:08 ; Admin Dose 50 MG; Start 09/18/16 at 14:00 Lorazepam (Ativan) 0.5 mg BID PRN PO ANXIETY; Start 09/18/16 at 14:00 Cholecalciferol (Vitamin D) 1,000 unit DAILY PO Last administered on 09/20/16 09:31; Admin Dose 1,000 UNIT; Start 09/19/16 at 09:00 Loratadine (Claritin) 10 mg DAILY PO Last administered on 09/20/16 09:29; Admin Dose 10 MG; Start 09/19/16 at 09:00 Metoprolol Tartrate (Lopressor) 50 mg BID PO Last administered on 09/20/16 21: 52; Admin Dose 50 MG; Start 09/18/16 at 21:00 Sertraline HCl (Zoloft) 50 mg DAILY PO Last administered on 09/20/16 09:31; Admin Dose 50 MG; Start 09/19/16 at 09:00 Diagnostic Test (Pha) (Accucheck) 1 ea 02 XX ; Start 09/19/16 at 02:00 Miscellaneous Information 1 ea NOTE XX ; Start 09/18/16 at 14:00 Glucose (Glutose) 15 gm Q15M PRN PO DECREASED GLUCOSE; Start 09/18/16 at 14:00 Glucose (Glutose) 22.5 gm Q15M PRN PO DECREASED GLUCOSE; Start 09/18/16 at 14:00 Dextrose (D50w Syringe) 25 ml Q15M PRN IV DECREASED GLUCOSE; Start 09/18/16 at 14:00 Dextrose (D50w Syringe) 50 ml Q15M PRN IV DECREASED GLUCOSE; Start 09/18/16 at 14:00 Glucagon (Glucagen) 1 mg Q15M PRN IM DECREASED GLUCOSE; Start 09/18/16 at 14:00 Glucose 15 gm 15 gm Q15M PRN BUCCAL DECREASED GLUCOSE; Start 09/18/16 at 14:00 Cefepime HCl (Maxipime 1gm/50 ml (Pmx)) 50 ml @ 100 mls/hr Q24H IVPB Last administered on 09/20/16 22:42; Admin Dose 100 MLS/HR; Start 09/18/16 at 20:00 Calcitriol (Rocaltrol) 0.25 mcg DAILY PO Last administered on 09/20/16 09:29; Admin Dose 0.25 MCG; Start 09/19/16 at 10:00 Nystatin 1 applic 1 applic BID TOP Last administered on 09/20/16 21:55; Admin Dose 1 APPLIC; Start 09/19/16 at 21:00 Sodium Bicarbonate/ Sodium Chloride (Na Bicarb/1/2 NS) 1,100 ml @ 75 mls/hr [id number] IV Last administered on 09/21/16 05:21; Admin Dose 75 MLS/HR; Start 09/20/16 at 10:30 Levothyroxine Sodium (Synthroid) 75 mcg DAILY@06 PO Last administered on 05:21; Admin Dose 75 MCG; Start 09/21/16 at 06:00 CRISTI AZUL MD Sep 21, 2016 07:36
[2016-09-21 07:46] VITALS: BP 151/65; RESP 18
[2016-09-21] MEDS: INSULIN ASPART [NOVOLOG] 3 ML PEN SC SCH ×4 (08:15→20:45)
[2016-09-21] MEDS ORDERED: POTASSIUM CHLORIDE IV SCH (09:00)
[2016-09-21] MEDS ORDERED: DEXTROSE 5% IV SCH (09:00)
[2016-09-21] MEDS ORDERED: SODIUM BICARBONATE IV SCH (09:00)
--- NOTE | 2016-09-21 09:55 | PN ---
Date/Time of Note Date/Time of Note DATE: 09/21/16 TIME: 09:51 Assessment/Plan VTE Prophylaxis VTE Prophylaxis Intervention: heparin Lines/Catheters IV Catheter Type (from [facility]): Peripheral IV Urinary Cath still in place: No Assessment/Plan Problems: (1) Metabolic acidosis with normal anion gap and failure of bicarbonate regeneration Status: Acute Comment: Nephrology continuing bicarb. Now adding KCl to IV b/c of associated hypokalemia (2) Major depressive disorder, single episode, mild Status: Acute Comment: Cont. 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 Sensitive to maxipime which pt. is already on. (5) Recurrent UTI Status: Acute Comment: On maxipime (6) [id number]-rz-[id number] renal failure Status: Acute Comment: Back to baseline level of creatinine. Defer to nephrology (7) Type 2 diabetes mellitus with diabetic chronic kidney disease Status: Chronic Comment: Glucose levels normal w/o any intervention Subjective 24 Hr Interval Summary Subjective hx not possible: pt non-verbal (sleeping) Exam/Review of Systems Vital Signs Vitals VS - Last 72 Hours, by Label Date Time Temp Pulse Resp B/P Pulse Ox O2 Delivery O2 Flow Rate FiO2 09/21/16 07:46 98.8 69 18 151/65 100 09/20/16 19:10 98.2 71 20 145/63 100 09/20/16 07:54 98.1 65 18 125/60 96 09/19/16 19:22 98.4 63 16 137/61 96 09/19/16 10:36 67 127/53 09/19/16 08:18 97.9 67 16 122/58 90 09/19/16 08:14 97.9 67 16 122/58 90 09/18/16 19:17 97.8 70 16 145/59 98 09/18/16 13:45 97.5 73 18 107/59 98 Vital Signs Date Time Temp Pulse Resp B/P Pulse Ox O2 Delivery O2 Flow Rate FiO2 09/21/16 07:46 98.8 69 18 151/65 100 Intake and Output 09/20/16 09/20/16 09/21/16 15:00 23:00 07:00 Intake Total 1000 ml 570 ml 920 ml Output Total 575 ml 700 ml Balance 1000 ml -5 ml 220 ml Exam Constitutional: frail, No alert, No oriented Psych: confusion Respiratory: clear to auscultation, normal air movement Cardiovascular: nl pulses, regular rate and rhythm, No edema, No murmurs/extra sounds, No rub Gastrointestinal: bowel sounds, nl liver, spleen, non-tender, soft, No mass, No rebound or guarding Musculoskeletal: nl extremities to inspection Extremities: normal pulses, No clubbing, No cyanosis, No edema Neurological: lethargic Additional Comments Bedside Glucose - 72 Hours Test 09/18/16 17:21 09/18/16 20:38 09/19/16 08:16 09/19/16 12:06 Bedside Glucose 138mg/dL (70-220) 112mg/dL (70-220) 96mg/dL (70-220) 106mg/dL (70-220) Test 09/19/16 17:28 09/19/16 20:25 09/20/16 09:28 09/20/16 10:52 Bedside Glucose 112mg/dL (70-220) 159mg/dL (70-220) 82mg/dL (70-220) 76mg/dL (70-220) Test 09/20/16 12:33 09/20/16 17:39 09/20/16 21:54 09/21/16 09:06 Bedside Glucose 102mg/dL (70-220) 85mg/dL (70-220) 90mg/dL (70-220) 78mg/dL (70-220) Results Result Diagram: 09/21/16 0450 09/21/16 0450 Results 24 hrs Laboratory Tests Test 09/20/16 10:52 09/20/16 12:33 09/20/16 17:39 09/20/16 21:54 Bedside Glucose 76 102 85 90 Test 09/21/16 04:50 09/21/16 09:06 Anion Gap 21 H Basophils # 0.0 Basophils % 0.1 Blood Morphology Comment Blood Urea Nitrogen 51 H Calcium Level 7.5 L Carbon Dioxide Level 11 L Chloride Level 116 H Creatinine 2.54 #H Eosinophils # 0.3 Eosinophils % 3.3 Glucose Level 78 Hematocrit 32.4 L Hemoglobin 10.6 L Lymphocytes # 1.3 Lymphocytes % 12.3 L Mean Corpuscular Hemoglobin 28.4 L Mean Corpuscular Hemoglobin Concent 32.7 Mean Corpuscular Volume 86.9 Mean Platelet Volume 7.6 Monocytes # 0.9 Monocytes % 8.6 Neutrophils # 7.8 H Neutrophils % 75.7 Nucleated Red Blood Cells # 0.0 Nucleated Red Blood Cells % 0.0 Platelet Count 333 Potassium Level 3.3 L Red Blood Count 3.73 L Red Cell Distribution Width 16.9 H Sodium Level 145 H White Blood Count 10.3 # Bedside Glucose 78 Medications Medications Current Medications Ondansetron HCl (Zofran Inj) 4 mg Q6H PRN IV NAUSEA AND/OR VOMITING; Start 09/18 at 14:00 Acetaminophen (Tylenol Tab) 650 mg Q6H PRN PO PAIN LEVEL 1-3 OR FEVER; Start at 14:00 Pantoprazole (Protonix Tab) 40 mg DAILY@06 PO Last administered on 09/21/16 05: 21; Admin Dose 40 MG; Start 09/19/16 at 06:00 Heparin Sodium (Porcine) (Heparin (5000 Units/0.5 ml)) 5,000 unit Q12 SC Last administered on 09/20/16 22:04; Admin Dose 5,000 UNIT; Start 09/18/16 at 21:00 Tramadol HCl (Ultram) 50 mg BID PRN PO pain Last administered on 09/20/16 02:08 ; Admin Dose 50 MG; Start 09/18/16 at 14:00 Lorazepam (Ativan) 0.5 mg BID PRN PO ANXIETY; Start 09/18/16 at 14:00 Cholecalciferol (Vitamin D) 1,000 unit DAILY PO Last administered on 09/20/16 09:31; Admin Dose 1,000 UNIT; Start 09/19/16 at 09:00 Loratadine (Claritin) 10 mg DAILY PO Last administered on 09/20/16 09:29; Admin Dose 10 MG; Start 09/19/16 at 09:00 Metoprolol Tartrate (Lopressor) 50 mg BID PO Last administered on 09/20/16 21: 52; Admin Dose 50 MG; Start 09/18/16 at 21:00 Sertraline HCl (Zoloft) 50 mg DAILY PO Last administered on 09/20/16 09:31; Admin Dose 50 MG; Start 09/19/16 at 09:00 Diagnostic Test (Pha) (Accucheck) 1 ea 02 XX ; Start 09/19/16 at 02:00 Miscellaneous Information 1 ea NOTE XX ; Start 09/18/16 at 14:00 Glucose (Glutose) 15 gm Q15M PRN PO DECREASED GLUCOSE; Start 09/18/16 at 14:00 Glucose (Glutose) 22.5 gm Q15M PRN PO DECREASED GLUCOSE; Start 09/18/16 at 14:00 Dextrose (D50w Syringe) 25 ml Q15M PRN IV DECREASED GLUCOSE; Start 09/18/16 at 14:00 Dextrose (D50w Syringe) 50 ml Q15M PRN IV DECREASED GLUCOSE; Start 09/18/16 at 14:00 Glucagon (Glucagen) 1 mg Q15M PRN IM DECREASED GLUCOSE; Start 09/18/16 at 14:00 Glucose 15 gm 15 gm Q15M PRN BUCCAL DECREASED GLUCOSE; Start 09/18/16 at 14:00 Cefepime HCl (Maxipime 1gm/50 ml (Pmx)) 50 ml @ 100 mls/hr Q24H IVPB Last administered on 09/20/16 22:42; Admin Dose 100 MLS/HR; Start 09/18/16 at 20:00 Calcitriol (Rocaltrol) 0.25 mcg DAILY PO Last administered on 09/20/16 09:29; Admin Dose 0.25 MCG; Start 09/19/16 at 10:00 Nystatin (Nystatin Powder) 1 applic BID TOP Last administered on 09/20/16 21:55 ; Admin Dose 1 APPLIC; Start 09/19/16 at 21:00 Levothyroxine Sodium 75 mcg 75 mcg DAILY@06 PO Last administered on 09/21/16 05 :21; Admin Dose 75 MCG; Start 09/21/16 at 06:00 Sodium Bicarbonate/ Potassium Chloride/Dextrose (Na Bicarb/KCl/ D5W) 1,105 ml @ 120 mls/hr Q9H13M IV ; Start 09/21/16 at 09:00 SHANIA RUCKER MD Sep 21, 2016 09:55
[2016-09-21] MEDS: SERTRALINE 50 MG TAB PO SCH (09:59)
[2016-09-21] MEDS: CALCITRIOL 0.25 MCG CAP PO SCH (09:59)
[2016-09-21] MEDS: CALCIUM ACETATE 667 MG CAP PO SCH ×3 (09:59→17:59)
[2016-09-21] MEDS: CHOLECALCIFEROL 1,000 UNIT TAB PO SCH (09:59)
[2016-09-21 10:00] VITALS: BP 148/67; PULSE 72
[2016-09-21] MEDS: LORATADINE 10 MG TAB PO SCH (10:00)
[2016-09-21] MEDS: NYSTATIN 30 GM POWDER BTL TOP SCH ×2 (10:01→20:20)
[2016-09-21] MEDS: METOPROLOL 50 MG TAB PO SCH ×2 (10:01→20:20)
[2016-09-21] MEDS: HEPARIN 5,000 UNIT/0.5 ML SYG SC SCH ×2 (10:05→20:25)
[2016-09-21] MEDS: DEXTROSE 5% IV SCH ×2 (11:19→18:00)
[2016-09-21] MEDS: POTASSIUM CHLORIDE IV SCH ×2 (11:19→18:00)
[2016-09-21] MEDS: SODIUM BICARBONATE IV SCH ×2 (11:19→18:00)
[2016-09-21] MEDS: ACETAMINOPHEN 325 MG TAB PO PRN (17:59)
[2016-09-21] MEDS: traMADol 50 MG TAB PO PRN (20:15)
[2016-09-21 20:39] VITALS: BP 157/66; RESP 18
[2016-09-21] MEDS: CEFEPIME 1GM/50 ML (PMX) 50 ML IVPB SCH (20:40)
[2016-09-22] MEDS: ACCUCHECK XX SCH (01:59)
[2016-09-22] MEDS: POTASSIUM CHLORIDE IV SCH ×2 (03:32→04:56)
[2016-09-22] MEDS: DEXTROSE 5% IV SCH ×2 (03:32→04:56)
[2016-09-22] MEDS: SODIUM BICARBONATE IV SCH ×2 (03:32→04:56)
[2016-09-22] MEDS: PANTOPRAZOLE (EC) 40 MG TAB PO SCH (05:17)
[2016-09-22] MEDS: LEVOTHYROXINE 75 MCG TAB PO SCH (05:17)
[2016-09-22] MEDS: ACETAMINOPHEN 325 MG TAB PO PRN ×2 (05:17→22:20)
[2016-09-22 06:19] LABS: CALCIUM 7.5 mg/dl (8.4-10.2); CREATININE 1.85 mg/dl (0.44-1.00)
[2016-09-22 06:23] LABS: POTASSIUM 2.7 mmol/L (3.5-5.1)
[2016-09-22] MEDS ORDERED: POTASSIUM CHLORIDE 20 MEQ in SOD CHLORIDE 0.9% 100 ML IVPB ONE (07:00)
[2016-09-22] MEDS ORDERED: POTASSIUM CHLORIDE 20 MEQ POWDER FOR ORAL SOLN PO ONE ×2 (07:00→15:30)
[2016-09-22 07:49] VITALS: BP 146/66; RESP 20
[2016-09-22] MEDS: INSULIN ASPART [NOVOLOG] 3 ML PEN SC SCH ×4 (08:15→21:00)
--- NOTE | 2016-09-22 08:39 | CONS ---
Date/Time of Note Date/Time of Note DATE: 09/22/16 TIME: 08:35 Assessment/Plan Assessment/Plan Chief Complaint/Hosp Course 1.acute renal failure superimposed on CKD , mostly due to dehydration . she is getting IV fluids and renal function is improving . 2.dementia , she seems depressed today 3. anemia of CKD 4.UTI on cefepime , urine C & S done before admission grew e coli sensitive to Cefepime . 5. low Mag , being replaced 6. low potassium , being replaced . Problems: Consultation Date/Type/Reason Admit Date/Time Sep 18, 2016 at 12:23 Type of Consultation: renal 24 HR Interval Summary Free Text/Dictation she is eating breakfast . She is tearful . Constitutional: no complaints Exam/Review of Systems Vital Signs Vitals Vital Signs Date Time Temp Pulse Resp B/P Pulse Ox O2 Delivery O2 Flow Rate FiO2 09/22/16 07:49 97.7 70 20 146/66 100 Intake and Output 09/21/16 09/21/16 09/22/16 15:00 23:00 07:00 Intake Total 740 ml 735 ml Output Total 875 ml 650 ml Balance -135 ml 85 ml Exam Constitutional: alert Psych: confusion Head: normocephalic Respiratory: clear to auscultation Gastrointestinal: soft Musculoskeletal: nl extremities to inspection Results Result Diagram: 09/21/16 0450 09/22/16 0521 Results 24 hrs Laboratory Tests Test 09/21/16 09:06 09/21/16 12:26 09/21/16 17:28 09/21/16 20:45 Bedside Glucose 78 87 78 108 Test 09/22/16 05:21 09/22/16 07:50 Anion Gap 18 H Blood Urea Nitrogen 43 H Calcium Level 7.5 L Carbon Dioxide Level 21 # Chloride Level 111 H Creatinine 1.85 H Glucose Level 125 # Potassium Level 2.7 *L Sodium Level 147 H Bedside Glucose 122 Medications Medications Current Medications Ondansetron HCl (Zofran Inj) 4 mg Q6H PRN IV NAUSEA AND/OR VOMITING; Start 09/18 at 14:00 Acetaminophen (Tylenol Tab) 650 mg Q6H PRN PO PAIN LEVEL 1-3 OR FEVER Last administered on 09/22/16t 05:17; Admin Dose 650 MG; Start 09/18/16 at 14:00 Pantoprazole (Protonix Tab) 40 mg DAILY@06 PO Last administered on 09/22/16 05: 17; Admin Dose 40 MG; Start 09/19/16 at 06:00 Heparin Sodium (Porcine) (Heparin (5000 Units/0.5 ml)) 5,000 unit Q12 SC Last administered on 09/21/16 20:25; Admin Dose 5,000 UNIT; Start 09/18/16 at 21:00 Tramadol HCl (Ultram) 50 mg BID PRN PO pain Last administered on 09/21/16 20:15 ; Admin Dose 50 MG; Start 09/18/16 at 14:00 Lorazepam (Ativan) 0.5 mg BID PRN PO ANXIETY; Start 09/18/16 at 14:00 Cholecalciferol (Vitamin D) 1,000 unit DAILY PO Last administered on 09/21/16 09:59; Admin Dose 1,000 UNIT; Start 09/19/16 at 09:00 Loratadine (Claritin) 10 mg DAILY PO Last administered on 09/21/16 10:00; Admin Dose 10 MG; Start 09/19/16 at 09:00 Metoprolol Tartrate (Lopressor) 50 mg BID PO Last administered on 09/21/16 20: 20; Admin Dose 50 MG; Start 09/18/16 at 21:00 Sertraline HCl (Zoloft) 50 mg DAILY PO Last administered on 09/21/16 09:59; Admin Dose 50 MG; Start 09/19/16 at 09:00 Diagnostic Test (Pha) (Accucheck) 1 ea 02 XX ; Start 09/19/16 at 02:00 Miscellaneous Information 1 ea NOTE XX ; Start 09/18/16 at 14:00 Glucose (Glutose) 15 gm Q15M PRN PO DECREASED GLUCOSE; Start 09/18/16 at 14:00 Glucose (Glutose) 22.5 gm Q15M PRN PO DECREASED GLUCOSE; Start 09/18/16 at 14:00 Dextrose (D50w Syringe) 25 ml Q15M PRN IV DECREASED GLUCOSE; Start 09/18/16 at 14:00 Dextrose (D50w Syringe) 50 ml Q15M PRN IV DECREASED GLUCOSE; Start 09/18/16 at 14:00 Glucagon (Glucagen) 1 mg Q15M PRN IM DECREASED GLUCOSE; Start 09/18/16 at 14:00 Glucose 15 gm 15 gm Q15M PRN BUCCAL DECREASED GLUCOSE; Start 09/18/16 at 14:00 Cefepime HCl (Maxipime 1gm/50 ml (Pmx)) 50 ml @ 100 mls/hr Q24H IVPB Last administered on 09/21/16 20:40; Admin Dose 100 MLS/HR; Start 09/18/16 at 20:00 Calcitriol (Rocaltrol) 0.25 mcg DAILY PO Last administered on 09/21/16 09:59; Admin Dose 0.25 MCG; Start 09/19/16 at 10:00 Nystatin (Nystatin Powder) 1 applic BID TOP Last administered on 09/21/16 20:20 ; Admin Dose 1 APPLIC; Start 09/19/16 at 21:00 Levothyroxine Sodium 75 mcg 75 mcg DAILY@06 PO Last administered on 09/22/16 05 :17; Admin Dose 75 MCG; Start 09/21/16 at 06:00 Sodium Bicarbonate 100 meq/Potassium Chloride 10 meq/ Dextrose 1,105 ml @ 120 mls/hr Q9H13M IV Last administered on 09/22/16 03:32; Admin Dose 120 MLS/HR; Start 09/21/16 at 10:30 Potassium Chloride/Sodium Chloride (KCl/NS) 110 ml @ 55 mls/hr ONCE ONCE IVPB ; Start 09/22/16 at 07:00; Stop 09/22/16 at 08:59 Potassium Chloride (Klor-Con 20) 20 meq BID PO ; Start 09/22/16 at 09:00; Status LUBNA HAIR MD Sep 22, 2016 08:39
[2016-09-22] MEDS: SERTRALINE 50 MG TAB PO SCH (08:43)
[2016-09-22] MEDS: CALCITRIOL 0.25 MCG CAP PO SCH (08:43)
[2016-09-22] MEDS: CALCIUM ACETATE 667 MG CAP PO SCH ×3 (08:43→17:40)
[2016-09-22] MEDS: CHOLECALCIFEROL 1,000 UNIT TAB PO SCH (08:44)
[2016-09-22] MEDS: LORATADINE 10 MG TAB PO SCH (08:44)
[2016-09-22] MEDS: METOPROLOL 50 MG TAB PO SCH ×2 (08:44→20:12)
[2016-09-22] MEDS: NYSTATIN 30 GM POWDER BTL TOP SCH ×2 (08:45→20:12)
[2016-09-22] MEDS: HEPARIN 5,000 UNIT/0.5 ML SYG SC SCH ×2 (08:51→20:15)
[2016-09-22] MEDS ORDERED: POTASSIUM CHLORIDE (SR) 20 MEQ TAB PO SCH (09:00)
[2016-09-22] MEDS: NA BICARBONATE 650 MG TAB PO SCH ×3 (09:02→20:11)
--- NOTE | 2016-09-22 14:14 | PN ---
DATE: 09/22/2016 TIME: Approximately 7:45 a.m. on 09/22/2016. SUBJECTIVE: Patient is quite weepy at the time of my visit, does not know why. However, was in the middle of at least trying to eat some breakfast and with no complaints other than she is weepy. PHYSICAL EXAMINATION: VITAL SIGNS: Revealed the following, her temperature was 97.7, pulse was 70, respirations were 20, blood pressure was 145/66. O2 sat was 100%. HEENT: Unremarkable. LUNGS: Clear. ABDOMEN: Unremarkable. IMPRESSION: 1. Renal failure, dehydration, resolving. 2. Urinary tract infection, resolving. 3. Cognitive disorder. 4. Diabetes mellitus. 5. Depression. DISCUSSION: Review of laboratory and other data: CBC not available today. Chemistry panel today r evealed a markedly lower potassium. Rest of the electrolytes including glucose which was 125 were f airly manageable. The patient's creatinine has come down to 1.85. Her BUN was 43. PLAN: Per Dr. Caceres probably replace some of her potassium and we will get some help in terms of discharge planning to see whether or not the patient can be progressed. Dictated By: DOUG BRINK MD SS/RENE Conf#: [id number] DID#: [id number]
[2016-09-22] MEDS: POTASSIUM CHLORIDE 20 MEQ POWDER FOR ORAL SOLN PO SCH ×2 (15:46→22:15)
[2016-09-22 19:00] VITALS: BP 165/70; RESP 19
[2016-09-22] MEDS: CEFEPIME 1GM/50 ML (PMX) 50 ML IVPB SCH (20:10)
[2016-09-23 00:30] VITALS: BP 140/66
[2016-09-23] MEDS: ACCUCHECK XX SCH (02:00)
[2016-09-23] MEDS: LORAZEPAM 0.5 MG TAB PO PRN ×2 (02:50→21:34)
[2016-09-23] MEDS: LEVOTHYROXINE 75 MCG TAB PO SCH (05:40)
[2016-09-23] MEDS: PANTOPRAZOLE (EC) 40 MG TAB PO SCH (05:41)
[2016-09-23 05:45] LABS: BASOPHILS % 0.4 % (0.0-2.0); EOSINOPHILS # 0.4 10^3/ul (0.0-0.5); EOSINOPHILS % 3.9 % (0.0-7.0); HEMATOCRIT 31.3 % (37.0-47.0); HEMOGLOBIN 10.4 g/dl (12.0-16.0); LYMPHOCYTES # 1.4 10^3/ul (0.8-2.9); LYMPHOCYTES % 12.6 % (15.0-51.0); MEAN CORPUSCULAR HEMOGLOBIN 28.5 pg (29.0-33.0); MEAN CORPUSCULAR HGB CONC 33.1 g/dl (32.0-37.0); MEAN CORPUSCULAR VOLUME 85.9 fl (82.0-101.0); MEAN PLATELET VOLUME 7.6 fl (7.4-10.4); NEUTROPHIL # 8.5 10^3/ul (1.6-7.5); NEUTROPHILS % 74.1 % (39.0-77.0); PLATELET COUNT 326 10^3/UL (140-440); RED BLOOD COUNT 3.64 10^6/ul (4.20-5.40); RED CELL DISTRIBUTION WIDTH 16.9 % (11.5-14.5); UNCORRECTED WBC 11.4 10^3/ul (4.8-10.8); WHITE BLOOD COUNT 11.4 10^3/ul (4.8-10.8)
[2016-09-23 06:06] LABS: POTASSIUM 3.6 mmol/L (3.5-5.1)
[2016-09-23 06:08] LABS: ALBUMIN/GLOBULIN RATIO 0.93; BILIRUBIN,INDIRECT 0.1 mg/dl (0-1.1); BILIRUBIN,TOTAL 0.1 mg/dl (0.2-1.3); CREATININE 1.57 mg/dl (0.44-1.00); TOTAL PROTEIN 6.2 g/dl (6.1-8.1)
[2016-09-23 06:09] LABS: PHOSPHORUS 2.3 mg/dl (2.5-4.9)
[2016-09-23 06:10] LABS: MAGNESIUM 1.4 mg/dl (1.7-2.5)
[2016-09-23 06:22] LABS: CONDITION 1; LH ANALYZER COMMENTS 1
[2016-09-23 07:39] VITALS: BP 159/72; RESP 16
[2016-09-23] MEDS: INSULIN ASPART [NOVOLOG] 3 ML PEN SC SCH ×4 (08:15→21:00)
--- NOTE | 2016-09-23 08:51 | CONS ---
Date/Time of Note Date/Time of Note DATE: 09/23/16 TIME: 08:44 Assessment/Plan Assessment/Plan Chief Complaint/Hosp Course 1. acute renal failure superimposed on CKD , mostly due to dehydration . she is getting IV fluids and renal function is improving . 2. dementia , more lethargic today because of Ativan . 3. anemia of CKD 4. UTI on cefepime , urine C & S done before admission grew e coli sensitive to Cefepime . 5. low Mag , will replace 6. low potassium , being replaced . 7. will start D/C planning Problems: Consultation Date/Type/Reason Admit Date/Time Sep 18, 2016 at 12:23 Type of Consultation: renal 24 HR Interval Summary Free Text/Dictation She is very lethargic this morning . She was confused and agitated earlier and given Ativan and is now lethargic . She does rouse to verbal stimuli . Subjective hx not possible: pt non-verbal Exam/Review of Systems Vital Signs Vitals Vital Signs Date Time Temp Pulse Resp B/P Pulse Ox O2 Delivery O2 Flow Rate FiO2 09/23/16 07:39 97.8 76 16 159/72 98 Intake and Output 09/22/16 09/22/16 09/23/16 15:00 23:00 07:00 Intake Total 560 ml 530 ml 650 ml Output Total 900 ml 900 ml Balance 560 ml -370 ml -250 ml Exam Psych: confusion Respiratory: clear to auscultation, diminished breath sounds Cardiovascular: regular rate and rhythm Gastrointestinal: soft Musculoskeletal: nl extremities to inspection Results Result Diagram: 09/23/16 0500 09/23/16 0500 Results 24 hrs Laboratory Tests Test 09/22/16 11:58 09/22/16 13:13 09/22/16 17:45 09/22/16 22:13 Bedside Glucose 95 90 105 Potassium Level 3.2 L Test 09/23/16 05:00 09/23/16 08:08 Alanine Aminotransferase (ALT/SGPT) 25 Albumin 3.0 L Albumin/Globulin Ratio 0.93 Alkaline Phosphatase 119 Anion Gap 18 H Aspartate Amino Transf (AST/SGOT) 15 Basophils # 0.0 Basophils % 0.4 Blood Morphology Comment Blood Urea Nitrogen 33 H Calcium Level 8.0 L Carbon Dioxide Level 23 Chloride Level 112 H Creatinine 1.57 H Direct Bilirubin 0.00 Eosinophils # 0.4 Eosinophils % 3.9 Globulin 3.20 Glucose Level 81 # Hematocrit 31.3 L Hemoglobin 10.4 L Indirect Bilirubin 0.1 Lymphocytes # 1.4 Lymphocytes % 12.6 L Magnesium Level 1.4 L Mean Corpuscular Hemoglobin 28.5 L Mean Corpuscular Hemoglobin Concent 33.1 Mean Corpuscular Volume 85.9 Mean Platelet Volume 7.6 Monocytes # 1.0 H Monocytes % 9.0 Neutrophils # 8.5 H Neutrophils % 74.1 Nucleated Red Blood Cells # 0.0 Nucleated Red Blood Cells % 0.0 Phosphorus Level 2.3 L Platelet Count 326 Potassium Level 3.6 Red Blood Count 3.64 L Red Cell Distribution Width 16.9 H Sodium Level 149 H Total Bilirubin 0.1 L Total Protein 6.2 White Blood Count 11.4 H Bedside Glucose 87 Medications Medications Current Medications Ondansetron HCl (Zofran Inj) 4 mg Q6H PRN IV NAUSEA AND/OR VOMITING; Start 09/18 at 14:00 Acetaminophen (Tylenol Tab) 650 mg Q6H PRN PO PAIN LEVEL 1-3 OR FEVER Last administered on 09/22/16 22:20; Admin Dose 650 MG; Start 09/18/16 at 14:00 Pantoprazole (Protonix Tab) 40 mg DAILY@06 PO Last administered on 09/23/16 05 :41; Admin Dose 40 MG; Start 09/19/16 at 06:00 Heparin Sodium (Porcine) (Heparin (5000 Units/0.5 ml)) 5,000 unit Q12 SC Last administered on 09/22/16 20:15; Admin Dose 5,000 UNIT; Start 09/18/16 at 21:00 Tramadol HCl (Ultram) 50 mg BID PRN PO pain Last administered on 09/21/16 20:15 ; Admin Dose 50 MG; Start 09/18/16 at 14:00 Lorazepam (Ativan) 0.5 mg BID PRN PO ANXIETY Last administered on 09/23/16 02: 50; Admin Dose 0.5 MG; Start 09/18/16 at 14:00 Cholecalciferol (Vitamin D) 1,000 unit DAILY PO Last administered on 09/22/16 08:44; Admin Dose 1,000 UNIT; Start 09/19/16 at 09:00 Loratadine (Claritin) 10 mg DAILY PO Last administered on 09/22/16 08:44; Admin Dose 10 MG; Start 09/19/16 at 09:00 Metoprolol Tartrate (Lopressor) 50 mg BID PO Last administered on 09/22/16 20: 12; Admin Dose 50 MG; Start 09/18/16 at 21:00 Sertraline HCl (Zoloft) 50 mg DAILY PO Last administered on 09/22/16 08:43; Admin Dose 50 MG; Start 09/19/16 at 09:00 Diagnostic Test (Pha) (Accucheck) 1 ea 02 XX ; Start 09/19/16 at 02:00 Miscellaneous Information 1 ea NOTE XX ; Start 09/18/16 at 14:00 Glucose (Glutose) 15 gm Q15M PRN PO DECREASED GLUCOSE; Start 09/18/16 at 14:00 Glucose (Glutose) 22.5 gm Q15M PRN PO DECREASED GLUCOSE; Start 09/18/16 at 14:00 Dextrose (D50w Syringe) 25 ml Q15M PRN IV DECREASED GLUCOSE; Start 09/18/16 at 14:00 Dextrose (D50w Syringe) 50 ml Q15M PRN IV DECREASED GLUCOSE; Start 09/18/16 at 14:00 Glucagon (Glucagen) 1 mg Q15M PRN IM DECREASED GLUCOSE; Start 09/18/16 at 14:00 Glucose 15 gm 15 gm Q15M PRN BUCCAL DECREASED GLUCOSE; Start 09/18/16 at 14:00 Cefepime HCl (Maxipime 1gm/50 ml (Pmx)) 50 ml @ 100 mls/hr Q24H IVPB Last administered on 09/22/16 20:10; Admin Dose 100 MLS/HR; Start 09/18/16 at 20:00 Calcitriol (Rocaltrol) 0.25 mcg DAILY PO Last administered on 09/22/16 08:43; Admin Dose 0.25 MCG; Start 09/19/16 at 10:00 Nystatin (Nystatin Powder) 1 applic BID TOP Last administered on 09/22/16 20:12 ; Admin Dose 1 APPLIC; Start 09/19/16 at 21:00 Levothyroxine Sodium (Synthroid) 75 mcg DAILY@06 PO Last administered on 05:40; Admin Dose 75 MCG; Start 09/21/16 at 06:00 Sodium Bicarbonate (Sodium Bicarbonate Tab) 650 mg TID PO Last administered on 09/22/16t 20:11; Admin Dose 650 MG; Start 09/22/16 at 09:00 LUBNA CLEMENTE MD Sep 23, 2016 08:51
[2016-09-23] MEDS: CHOLECALCIFEROL 1,000 UNIT TAB PO SCH (09:48)
[2016-09-23] MEDS: POTASSIUM CHLORIDE 20 MEQ POWDER FOR ORAL SOLN PO SCH (09:48)
[2016-09-23] MEDS: CALCITRIOL 0.25 MCG CAP PO SCH (09:48)
[2016-09-23] MEDS: SERTRALINE 50 MG TAB PO SCH (09:48)
[2016-09-23] MEDS: LORATADINE 10 MG TAB PO SCH (09:48)
[2016-09-23] MEDS: NA BICARBONATE 650 MG TAB PO SCH ×3 (09:48→21:19)
[2016-09-23] MEDS: METOPROLOL 50 MG TAB PO SCH ×2 (09:48→21:20)
[2016-09-23] MEDS: CALCIUM ACETATE 667 MG CAP PO SCH ×3 (09:48→18:33)
[2016-09-23] MEDS: NYSTATIN 30 GM POWDER BTL TOP SCH ×2 (09:49→21:34)
[2016-09-23] MEDS ORDERED: MAGNESIUM SULFATE 2 GM/50 ML 50 ML IVPB ONE (10:00)
[2016-09-23] MEDS: HEPARIN 5,000 UNIT/0.5 ML SYG SC SCH ×2 (11:07→21:30)
--- NOTE | 2016-09-23 14:38 | PN ---
DATE: 09/23/2016 TIME: Approximately 8 a.m. SUBJECTIVE: The patient not really answering questions, albeit is arousable and does turn my way, b ut appears to be quite sleepy. PHYSICAL EXAMINATION: VITAL SIGNS: Revealed the following: The patient's blood pressure is 159/72, pulse 76, temperature 97.8, respirations 16, and O2 sat 98%. HEENT: Unremarkable. LUNGS: Clear. HEART: Reveals a regular rhythm. IMPRESSION: 1. Dehydration, resolving. 2. Chronic renal failure. 3. Diabetes mellitus. 4. Cognitive disorder. 5. Depression. DISCUSSION: Review of laboratory and other data reveals the following: The patient's CBC today rev eals white count of 11.4, hemoglobin of 10.4, hematocrit which is stable. Chemistries done today re vealed normal electrolytes. BUN is 33; however, creatinine is down to 1.57, glucose is 81, and phos phorus and magnesium appear to be low as is her albumin. The rest of the laboratory appears to be w ithin range. Awaiting case management and other appropriate input. Will discuss the patient with her family. CONDITION today is stable; however, she seems to be withdrawing more than she had been before. Dictated By: DOUG BRITT/RENE Conf#: [id number] DID#: [id number]
[2016-09-23 19:00] VITALS: BP 141/57; RESP 18
[2016-09-23] MEDS: CEFEPIME 1GM/50 ML (PMX) 50 ML IVPB SCH (21:19)
[2016-09-24] MEDS: ACCUCHECK XX SCH (02:00)
[2016-09-24] MEDS: LEVOTHYROXINE 75 MCG TAB PO SCH (05:50)
[2016-09-24] MEDS: PANTOPRAZOLE (EC) 40 MG TAB PO SCH (05:50)
[2016-09-24 06:02] LABS: ALBUMIN 2.9 g/dl (3.3-4.9)
[2016-09-24 06:03] LABS: POTASSIUM 3.8 mmol/L (3.5-5.1)
[2016-09-24 06:05] LABS: ALBUMIN/GLOBULIN RATIO 0.93; BILIRUBIN,INDIRECT 0.1 mg/dl (0-1.1); BILIRUBIN,TOTAL 0.1 mg/dl (0.2-1.3); CREATININE 1.39 mg/dl (0.44-1.00)
[2016-09-24 06:06] LABS: BASOPHILS % 0.3 % (0.0-2.0); CALCIUM 8.2 mg/dl (8.4-10.2); EOSINOPHILS # 0.6 10^3/ul (0.0-0.5); EOSINOPHILS % 4.7 % (0.0-7.0); HEMATOCRIT 31.5 % (37.0-47.0); HEMOGLOBIN 10.5 g/dl (12.0-16.0); LYMPHOCYTES # 1.4 10^3/ul (0.8-2.9); LYMPHOCYTES % 11.4 % (15.0-51.0); MEAN CORPUSCULAR HGB CONC 33.3 g/dl (32.0-37.0); MEAN CORPUSCULAR VOLUME 87.2 fl (82.0-101.0); MEAN PLATELET VOLUME 7.6 fl (7.4-10.4); MONOCYTES % 7.7 % (0.0-11.0); NEUTROPHIL # 9.5 10^3/ul (1.6-7.5); NEUTROPHILS % 75.9 % (39.0-77.0); PLATELET COUNT 302 10^3/UL (140-440); RED BLOOD COUNT 3.61 10^6/ul (4.20-5.40); RED CELL DISTRIBUTION WIDTH 17.1 % (11.5-14.5); UNCORRECTED WBC 12.5 10^3/ul (4.8-10.8); WHITE BLOOD COUNT 12.5 10^3/ul (4.8-10.8)
[2016-09-24 06:10] LABS: CONDITION 1; LH ANALYZER COMMENTS 1
[2016-09-24] MEDS: INSULIN ASPART [NOVOLOG] 3 ML PEN SC SCH ×4 (08:15→21:00)
[2016-09-24] MEDS: LORATADINE 10 MG TAB PO SCH (08:39)
[2016-09-24] MEDS: SERTRALINE 50 MG TAB PO SCH (08:39)
[2016-09-24] MEDS: NA BICARBONATE 650 MG TAB PO SCH ×3 (08:40→21:22)
[2016-09-24] MEDS: CALCITRIOL 0.25 MCG CAP PO SCH (08:40)
[2016-09-24] MEDS: CALCIUM ACETATE 667 MG CAP PO SCH ×4 (08:40→17:39)
[2016-09-24] MEDS: METOPROLOL 50 MG TAB PO SCH ×2 (08:41→21:22)
[2016-09-24] MEDS: POTASSIUM CHLORIDE 20 MEQ POWDER FOR ORAL SOLN PO SCH (08:41)
[2016-09-24] MEDS: CHOLECALCIFEROL 1,000 UNIT TAB PO SCH (08:41)
[2016-09-24 08:42] VITALS: BP 172/72; RESP 16
[2016-09-24] MEDS: NYSTATIN 30 GM POWDER BTL TOP SCH ×2 (09:00→21:23)
[2016-09-24] MEDS: HEPARIN 5,000 UNIT/0.5 ML SYG SC SCH ×2 (09:38→21:48)
[2016-09-24] MEDS: traMADol 50 MG TAB PO PRN (09:53)
--- NOTE | 2016-09-24 11:16 | PN ---
DATE: 09/24/2016 SUBJECTIVE: The patient a little bit more talkative, but still weepy. No particular complaints and really does not answer questions appropriately. PHYSICAL EXAMINATION: VITAL SIGNS: Reveal blood pressure 141/57, temperature 98.8, pulse 71, respirations 18, O2 99%. HEENT: Unremarkable. LUNGS: Clear. HEART: Reveals regular rhythm. ABDOMEN: Unremarkable. IMPRESSION: 1. Chronic renal failure and dehydration, resolving. 2. Probable depression/cognitive disorder. 3. Diabetes mellitus type 2. 4. Stable health. Review of laboratory and other data reveals the following: The patient's CBC reveals a white count of 12.5, hemoglobin of 10.5, which is fairly steady. Chemistries reveal normal electrolytes. Creat inine is down to 1.39. Glucose has been running in the 90 range. Rest of the laboratory other than minimal elevated alkaline phosphatase was normal. DISCUSSION: Awaiting possible psych consult and also case management in terms of placement since th e patient appears to be relatively stable at this particular point in time, at least medically speak ing. Dictated By: DOUG BIRNK MD SS/NTS Conf#: [id number] DID#: [id number]
[2016-09-24] MEDS ORDERED: VANCOMYCIN HCL 250 MG/5ML POSYG PO SCH (12:00)
[2016-09-24] MEDS: LACTOBACILLUS CHEW TAB PO SCH ×2 (12:37→21:22)
[2016-09-24] MEDS: VANCOMYCIN HCL 250 MG/5ML POSYG PO SCH ×3 (12:37→23:45)
--- NOTE | 2016-09-24 16:24 | CONS ---
DATE OF ADMISSION: 09/18/2016 DATE OF CONSULTATION: 09/23/2016 TYPE OF CONSULTATION: Infectious Disease. REASON FOR CONSULTATION: Antibiotic management. HISTORY OF PRESENT ILLNESS: Gladys Samuel is a very frail 86-year-old female who comes in with con fusion, dehydration and possible UTI. Her past problems include: 1. Adult-onset diabetes mellitus. 2. History of a brain cyst. 3. Hypertension. 4. Recurrent UTIs. 5. Interstitial cystitis. 6. Dementia. 7. Anemia of chronic disease. 8. Hypothyroidism. 9. Total abdominal hysterectomy with BSO and incidental appendectomy. 10. Status post cholecystectomy. 11. Cataract extraction. 12. Cystectomy with ileal loop creation. Patient is at home under the care of her , she recently had a urinary tract infection. She h as been confused. Her BUN and creatinine has risen. She does suffer from dementia, but has been mo re confused recently. She was started on Cipro for her UTI. She has a history of chronic renal dis ease, had a cystectomy because of chronic pelvic pain and chronic interstitial cystitis. She also I S ALLERGIC TO PENICILLIN WHICH CAUSES A RASH. On admission, her white count was 15.7, H and H of 10.4 and 32.2. Platelet count 370,000. White co unt on the was 11.4. BUN and creatinine are 33/1.57. Urine 3+ leukocyte esterase, greater carroll n 200 white cells per high-power field, 2+ hemoglobin. A chest x-ray shows no acute cardiopulmonary disease. She has coarse interstitial fibrotic changes. A CT scan of the brain shows moderate bila teral maxillary sinusitis, chronic changes of atrophy and small vessel disease. Otherwise, no acute process in the head. Microbiology: She turns out to have E. coli ESBL sensitive to cefepime and t o imipenem and probably to ertapenem. PAST MEDICAL HISTORY: Operations as outlined. FAMILY HISTORY: Noncontributory. SOCIAL HISTORY: She does not smoke, drink or abuse drugs. ALLERGIES: NONE TO PENICILLIN, SULFA OR FOODS. MEDICATIONS: Per chart. REVIEW OF SYSTEMS: Noncontributory. PHYSICAL EXAMINATION: GENERAL: The patient is very lethargic elderly, confused female who is in no acute distress. She d oes rouse to verbal stimuli. SKIN: Without generalized rash. HEENT: Within normal limits. NECK: Supple. LYMPH NODES: None palpable. CHEST: Decreased breath sounds at the bases. HEART: Without murmur or gallop. ABDOMEN: Soft, nontender, without organosplenomegaly or masses. She does have a cystectomy as noted. EXTREMITIES: No cyanosis, clubbing, or edema. RECTAL AND GENITAL: Deferred. NEUROLOGIC: No focal neurological abnormalities, although she has dementia and confusion. ANCILLARY LABORATORY DATA: White count today is 11.4. BUN and creatinine are 33/1.57. IMPRESSION AND PLAN: The patient has E. coli ESBL, which is throwing her off. She has been placed on cefepime, which is adequate for her therapy. I will dictate my findings to Dr. Alvarez and Gamal Clemente. I want to thank Dr. Alvarez, for asking me to see this joanne lady in consultati on. Dictated By: ANNITA RAMIREZ MD, JD/NTS Conf#: [id number] DID#: [id number] CC: ANNITA RAMIREZ MD; LUBNA CLEMENTE MD; CARI ALVAREZ MD;*End*
--- NOTE | 2016-09-24 16:30 | PN ---
DATE: 09/24/2016 SUBJECTIVE: No acute events overnight. The patient is awake, very confused. She is in no distress . No fevers. Per staff has watery stools. LABORATORY: WBC today 12.5 with H and H 10.5 and 31.5, platelet 302, no shift. BUN 26, creatinine 1.39. MICROBIOLOGY: Stool for C. diff came back positive. ANTIMICROBIALS: The patient is on cefepime that was discontinued this morning and oral vancomycin s tarted. PHYSICAL EXAMINATION: GENERAL: This is a fragile, elderly woman who is awake, in no distress. HEENT: Head atraumatic, normocephalic. Sclerae anicteric. Buccal mucosa dry. NECK: Supple, trachea midline. CHEST: Rise symmetrical. Breath sounds clear. HEART: S1, S2. ABDOMEN: Soft. Bowel tones present. EXTREMITIES: No cyanosis. ASSESSMENT: 1. Status post Escherichia coli extended-spectrum beta-lactamase urinary tract infection, completed treatment with cefepime for 7 days. 2. Clostridium difficile colitis. 3. History of urostomy. 4. Diabetes. 5. Hypertension. PLAN: The patient is clinically stable, started on treatment for Clostridium difficile colitis. An tibiotics discontinued. She is also started on probiotics. We will continue observing her on curre nt regimen. Continue IV hydration and panculture p.r.n. Dictated By: [employer] [facility] CONSULTANT for ANNITA LION/RENE Conf#: [id number] DID#: [id number]
--- NOTE | 2016-09-24 19:01 | CONS ---
Date/Time of Note Date/Time of Note DATE: 09/24/16 TIME: 18:55 Assessment/Plan Assessment/Plan Chief Complaint/Hosp Course 1. acute renal failure superimposed on CKD , mostly due to dehydration . she is getting IV fluids and renal function is improving . 2. dementia , she is less lethargic today.. 3. anemia of CKD 4. UTI , has been treated with cefepime. The cefepime was discontinued because of diarrhea.. 5. low Mag , will replace 6. low potassium , being replaced . 7. will start D/C planning , I had a discussion with the and he is seeing of a rehabilitation center placement. I will put in for case management to evaluate for [facility]. 8. She has C. difficile colitis. She is on oral vancomycin for this. She has been seen by infectious disease specialist Dr. Mosqueda. Problems: Consultation Date/Type/Reason Admit Date/Time Sep 18, 2016 at 12:23 Type of Consultation: renal 24 HR Interval Summary Free Text/Dictation she is awake and feeling better. Her was in the room with her. Constitutional: improved, no complaints Exam/Review of Systems Vital Signs Vitals Vital Signs Date Time Temp Pulse Resp B/P Pulse Ox O2 Delivery O2 Flow Rate FiO2 09/24/16 08:42 98.2 69 16 172/72 100 Intake and Output 09/23/16 09/23/16 09/24/16 15:00 23:00 07:00 Intake Total 390 ml 240 ml Output Total 700 ml Balance 390 ml -460 ml Exam Constitutional: alert Respiratory: clear to auscultation, normal air movement Cardiovascular: regular rate and rhythm Gastrointestinal: soft Musculoskeletal: nl extremities to inspection Results Result Diagram: 09/24/16 0510 09/24/16 0510 Results 24 hrs Laboratory Tests Test 09/23/16 21:17 09/24/16 05:10 09/24/16 07:51 09/24/16 11:47 Bedside Glucose 99 93 150 Alanine Aminotransferase (ALT/SGPT) 22 Albumin 2.9 L Albumin/Globulin Ratio 0.93 Alkaline Phosphatase 127 H Anion Gap 16 Aspartate Amino Transf (AST/SGOT) 17 Basophils # 0.0 Basophils % 0.3 Blood Morphology Comment Blood Urea Nitrogen 26 H Calcium Level 8.2 L Carbon Dioxide Level 25 Chloride Level 108 Creatinine 1.39 H Direct Bilirubin 0.00 Eosinophils # 0.6 H Eosinophils % 4.7 Globulin 3.10 Glucose Level 88 Hematocrit 31.5 L Hemoglobin 10.5 L Indirect Bilirubin 0.1 Lymphocytes # 1.4 Lymphocytes % 11.4 L Magnesium Level 2.0 Mean Corpuscular Hemoglobin 29.0 Mean Corpuscular Hemoglobin Concent 33.3 Mean Corpuscular Volume 87.2 Mean Platelet Volume 7.6 Monocytes # 1.0 H Monocytes % 7.7 Neutrophils # 9.5 H Neutrophils % 75.9 Nucleated Red Blood Cells # 0.0 Nucleated Red Blood Cells % 0.0 Platelet Count 302 Potassium Level 3.8 Red Blood Count 3.61 L Red Cell Distribution Width 17.1 H Sodium Level 145 H Total Bilirubin 0.1 L Total Protein 6.0 L White Blood Count 12.5 H Test 09/24/16 17:08 Bedside Glucose 93 Medications Medications Current Medications Ondansetron HCl (Zofran Inj) 4 mg Q6H PRN IV NAUSEA AND/OR VOMITING; Start 09/18 at 14:00 Acetaminophen (Tylenol Tab) 650 mg Q6H PRN PO PAIN LEVEL 1-3 OR FEVER Last administered on 09/22/16 22:20; Admin Dose 650 MG; Start 09/18/16 at 14:00 Pantoprazole (Protonix Tab) 40 mg DAILY@06 PO Last administered on 09/24/16 05 :50; Admin Dose 40 MG; Start 09/19/16 at 06:00 Heparin Sodium (Porcine) (Heparin (5000 Units/0.5 ml)) 5,000 unit Q12 SC Last administered on 09/24/16 09:38; Admin Dose 5,000 UNIT; Start 09/18/16 at 21:00 Tramadol HCl (Ultram) 50 mg BID PRN PO pain Last administered on 09/24/16 09: 53; Admin Dose 50 MG; Start 09/18/16 at 14:00 Lorazepam (Ativan) 0.5 mg BID PRN PO ANXIETY Last administered on 09/23/16 21: 34; Admin Dose 0.5 MG; Start 09/18/16 at 14:00 Cholecalciferol (Vitamin D) 1,000 unit DAILY PO Last administered on 09/24/16 08:41; Admin Dose 1,000 UNIT; Start 09/19/16 at 09:00 Loratadine (Claritin) 10 mg DAILY PO Last administered on 09/24/16 08:39; Admin Dose 10 MG; Start 09/19/16 at 09:00 Metoprolol Tartrate (Lopressor) 50 mg BID PO Last administered on 09/24/16 08: 41; Admin Dose 50 MG; Start 09/18/16 at 21:00 Sertraline HCl (Zoloft) 50 mg DAILY PO Last administered on 09/24/16 08:39; Admin Dose 50 MG; Start 09/19/16 at 09:00 Diagnostic Test (Pha) (Accucheck) 1 ea 02 XX ; Start 09/19/16 at 02:00 Miscellaneous Information 1 ea NOTE XX ; Start 09/18/16 at 14:00 Glucose (Glutose) 15 gm Q15M PRN PO DECREASED GLUCOSE; Start 09/18/16 at 14:00 Glucose (Glutose) 22.5 gm Q15M PRN PO DECREASED GLUCOSE; Start 09/18/16 at 14:00 Dextrose (D50w Syringe) 25 ml Q15M PRN IV DECREASED GLUCOSE; Start 09/18/16 at 14:00 Dextrose (D50w Syringe) 50 ml Q15M PRN IV DECREASED GLUCOSE; Start 09/18/16 at 14:00 Glucagon (Glucagen) 1 mg Q15M PRN IM DECREASED GLUCOSE; Start 09/18/16 at 14:00 Glucose (Glutose) 15 gm Q15M PRN BUCCAL DECREASED GLUCOSE; Start 09/18/16 at 14: 00 Calcitriol (Rocaltrol) 0.25 mcg DAILY PO Last administered on 09/24/16 08:40; Admin Dose 0.25 MCG; Start 09/19/16 at 10:00 Nystatin (Nystatin Powder) 1 applic BID TOP Last administered on 09/23/16 21: 34; Admin Dose 1 APPLIC; Start 09/19/16 at 21:00 Levothyroxine Sodium (Synthroid) 75 mcg DAILY@06 PO Last administered on 05:50; Admin Dose 75 MCG; Start 09/21/16 at 06:00 Sodium Bicarbonate (Sodium Bicarbonate Tab) 650 mg TID PO Last administered on 09/24/16 12:37; Admin Dose 650 MG; Start 09/22/16 at 09:00 Potassium Chloride (Potassium Chloride Pwd/Soln) 20 meq DAILY PO Last administered on 09/24/16 08:41; Admin Dose 20 MEQ; Start 09/23/16 at 09:00 Vancomycin HCl (Vancomycin Oral Syringe) 250 mg Q6 PO Last administered on 09/24 17:39; Admin Dose 250 MG; Start 09/24/16 at 12:00 Lactobacillus Acidoph/Bulgaricus (Floranex) 1 tab TID PO Last administered on 12:37; Admin Dose 1 TAB; Start 09/24/16 at 13:00 LUBNA CLEMENTE MD Sep 24, 2016 19:00
[2016-09-24 21:08] VITALS: BP 159/70; RESP 18
[2016-09-24] MEDS: LORAZEPAM 0.5 MG TAB PO PRN (23:45)
[2016-09-25] MEDS: ACCUCHECK XX SCH (02:00)
[2016-09-25] MEDS: DEXTROSE 5% 1,000 ML IV SCH ×2 (03:49→15:00)
[2016-09-25] MEDS: PANTOPRAZOLE (EC) 40 MG TAB PO SCH (05:45)
[2016-09-25] MEDS: LEVOTHYROXINE 75 MCG TAB PO SCH (05:46)
[2016-09-25] MEDS: VANCOMYCIN HCL 250 MG/5ML POSYG PO SCH ×3 (05:46→18:44)
[2016-09-25 07:33] VITALS: BP 152/70; RESP 16
[2016-09-25] MEDS: INSULIN ASPART [NOVOLOG] 3 ML PEN SC SCH ×4 (08:06→21:00)
[2016-09-25] MEDS: LORATADINE 10 MG TAB PO SCH (09:35)
[2016-09-25] MEDS: CALCIUM ACETATE 667 MG CAP PO SCH ×4 (09:36→18:44)
[2016-09-25] MEDS: CALCITRIOL 0.25 MCG CAP PO SCH (09:36)
[2016-09-25] MEDS: CHOLECALCIFEROL 1,000 UNIT TAB PO SCH (09:36)
[2016-09-25] MEDS: POTASSIUM CHLORIDE 20 MEQ POWDER FOR ORAL SOLN PO SCH (09:36)
[2016-09-25] MEDS: METOPROLOL 50 MG TAB PO SCH ×2 (09:36→21:02)
[2016-09-25] MEDS: NA BICARBONATE 650 MG TAB PO SCH ×3 (09:36→21:01)
[2016-09-25] MEDS: SERTRALINE 50 MG TAB PO SCH (09:37)
[2016-09-25] MEDS: LACTOBACILLUS CHEW TAB PO SCH ×3 (09:37→21:01)
[2016-09-25] MEDS: NYSTATIN 30 GM POWDER BTL TOP SCH ×2 (09:37→21:12)
[2016-09-25] MEDS: HEPARIN 5,000 UNIT/0.5 ML SYG SC SCH ×2 (09:58→21:09)
--- NOTE | 2016-09-25 11:15 | PN ---
DATE: 09/25/2016 SUBJECTIVE: Patient again slightly more talkative; however, very hesitant speech. PHYSICAL EXAMINATION VITAL SIGNS: Reveal a temperature of 98.3, pulse of 73, respirations 16, blood pressure 152/70, O2 sat 99%. HEENT: Unremarkable. LUNGS: Clear. HEART: Reveals a regular rhythm. IMPRESSION: 1. Chronic renal failure and dehydration; possible urinary tract infection, resolving. 1. Cognitive disorder. 2. Diabetes mellitus type 2. DISCUSSION: Review of laboratory and other data revealed the following today. No blood work is heriberto ilable at this particular point in time in terms of her CBC. Glucose is 90. The rest of the vital signs and parameters are improved. PLAN: Following per Dr. Caceres in terms of her renal status. The patient has also been seen by infectious disease in terms of a resistant E. coli. It appears that at least from terms of therap y, she has been on the right medication awaiting case management in terms of eventual discharge plan avery. CONDITION: Slightly improved but quite slightly. Dictated By: DOUG BRINK MD SS/NTS Conf#: [id number] DID#: [id number]
--- NOTE | 2016-09-25 13:18 | CONS ---
Date/Time of Note Date/Time of Note DATE: 09/25/16 TIME: 13:13 Assessment/Plan Assessment/Plan Chief Complaint/Hosp Course 1. acute renal failure superimposed on CKD , mostly due to dehydration . she is getting IV fluids and renal function is improving . 2. dementia , she is more alert today.. 3. anemia of CKD 4. UTI , has been treated with cefepime. The cefepime was discontinued because of diarrhea..Urine is now clear . 5. low Mag , will replace 6. low potassium , being replaced . 7. will start D/C planning , I had a discussion with the and he wants rehabilitation center placement. I will put in for case management to evaluate for [facility]. 8. She has C. difficile colitis. She is on oral vancomycin for this. She has been seen by infectious disease specialist Dr. Mosqueda.This is getting better Problems: Consultation Date/Type/Reason Admit Date/Time Sep 18, 2016 at 12:23 Type of Consultation: renal 24 HR Interval Summary Free Text/Dictation She is awake and responsive . She is more alert and is now having formed stool . Constitutional: no complaints Exam/Review of Systems Vital Signs Vitals Vital Signs Date Time Temp Pulse Resp B/P Pulse Ox O2 Delivery O2 Flow Rate FiO2 09/25/16 07:33 98.3 71 16 152/70 99 Intake and Output 09/24/16 09/24/16 09/25/16 15:00 23:00 07:00 Intake Total 600 ml 580 ml Output Total 450 ml 300 ml Balance 150 ml 280 ml Exam Constitutional: alert Psych: no complaints Respiratory: clear to auscultation, normal air movement Cardiovascular: regular rate and rhythm Gastrointestinal: soft, tender Musculoskeletal: nl extremities to inspection Results Result Diagram: 09/24/16 0510 09/24/16 0510 Results 24 hrs Laboratory Tests Test 09/24/16 17:08 09/24/16 21:21 09/25/16 07:45 09/25/16 11:46 Bedside Glucose 93 116 90 114 Medications Medications Current Medications Ondansetron HCl (Zofran Inj) 4 mg Q6H PRN IV NAUSEA AND/OR VOMITING; Start 09/18 at 14:00 Acetaminophen (Tylenol Tab) 650 mg Q6H PRN PO PAIN LEVEL 1-3 OR FEVER Last administered on 09/22/16 22:20; Admin Dose 650 MG; Start 09/18/16 at 14:00 Pantoprazole (Protonix Tab) 40 mg DAILY@06 PO Last administered on 09/25/16 05 :45; Admin Dose 40 MG; Start 09/19/16 at 06:00 Heparin Sodium (Porcine) (Heparin (5000 Units/0.5 ml)) 5,000 unit Q12 SC Last administered on 09/25/16 09:58; Admin Dose 5,000 UNIT; Start 09/18/16 at 21:00 Tramadol HCl (Ultram) 50 mg BID PRN PO pain Last administered on 09/24/16 09: 53; Admin Dose 50 MG; Start 09/18/16 at 14:00 Lorazepam (Ativan) 0.5 mg BID PRN PO ANXIETY Last administered on 09/24/16 23: 45; Admin Dose 0.5 MG; Start 09/18/16 at 14:00 Cholecalciferol (Vitamin D) 1,000 unit DAILY PO Last administered on 09/25/16 09:36; Admin Dose 1,000 UNIT; Start 09/19/16 at 09:00 Loratadine (Claritin) 10 mg DAILY PO Last administered on 09/25/16 09:35; Admin Dose 10 MG; Start 09/19/16 at 09:00 Metoprolol Tartrate (Lopressor) 50 mg BID PO Last administered on 09/25/16 09: 36; Admin Dose 50 MG; Start 09/18/16 at 21:00 Sertraline HCl (Zoloft) 50 mg DAILY PO Last administered on 09/25/16 09:37; Admin Dose 50 MG; Start 09/19/16 at 09:00 Diagnostic Test (Pha) (Accucheck) 1 ea 02 XX ; Start 09/19/16 at 02:00 Miscellaneous Information 1 ea NOTE XX ; Start 09/18/16 at 14:00 Glucose (Glutose) 15 gm Q15M PRN PO DECREASED GLUCOSE; Start 09/18/16 at 14:00 Glucose (Glutose) 22.5 gm Q15M PRN PO DECREASED GLUCOSE; Start 09/18/16 at 14:00 Dextrose (D50w Syringe) 25 ml Q15M PRN IV DECREASED GLUCOSE; Start 09/18/16 at 14:00 Dextrose (D50w Syringe) 50 ml Q15M PRN IV DECREASED GLUCOSE; Start 09/18/16 at 14:00 Glucagon (Glucagen) 1 mg Q15M PRN IM DECREASED GLUCOSE; Start 09/18/16 at 14:00 Glucose (Glutose) 15 gm Q15M PRN BUCCAL DECREASED GLUCOSE; Start 09/18/16 at 14: 00 Calcitriol (Rocaltrol) 0.25 mcg DAILY PO Last administered on 09/25/16 09:36; Admin Dose 0.25 MCG; Start 09/19/16 at 10:00 Nystatin (Nystatin Powder) 1 applic BID TOP Last administered on 09/25/16 09: 37; Admin Dose 1 APPLIC; Start 09/19/16 at 21:00 Levothyroxine Sodium (Synthroid) 75 mcg DAILY@06 PO Last administered on 05:46; Admin Dose 75 MCG; Start 09/21/16 at 06:00 Sodium Bicarbonate (Sodium Bicarbonate Tab) 650 mg TID PO Last administered on 09/25/16 11:57; Admin Dose 650 MG; Start 09/22/16 at 09:00 Potassium Chloride (Potassium Chloride Pwd/Soln) 20 meq DAILY PO Last administered on 09/25/16 09:36; Admin Dose 20 MEQ; Start 09/23/16 at 09:00 Vancomycin HCl (Vancomycin Oral Syringe) 250 mg Q6 PO Last administered on 09/25 11:52; Admin Dose 250 MG; Start 09/24/16 at 12:00 Lactobacillus Acidoph/ Bulgaricus 1 tab 1 tab TID PO Last administered on 11:58; Admin Dose 1 TAB; Start 09/24/16 at 13:00 Dextrose (D5W) 1,000 ml @ 50 mls/hr Q20H IV Last administered on 09/25/16 03: 49; Admin Dose 50 MLS/HR; Start 09/24/16 at 19:00 LUBNA CLEMENTE MD Sep 25, 2016 13:18
--- NOTE | 2016-09-25 15:32 | CONS ---
Date/Time of Note Date/Time of Note DATE: 09/25/16 TIME: 15:31 Consult Date/Type/Reason Admit Date/Time Sep 18, 2016 at 12:23 Initial Consult Date Type of Consultation: ID Subjective awake, looks comfortable, no fevers, diarrhea resolving Objective Vital Signs Date Time Temp Pulse Resp B/P Pulse Ox O2 Delivery O2 Flow Rate FiO2 09/25/16 07:33 98.3 71 16 152/70 99 Intake and Output 09/24/16 09/24/16 09/25/16 15:00 23:00 07:00 Intake Total 600 ml 580 ml Output Total 450 ml 300 ml Balance 150 ml 280 ml Results/Medications Result Diagram: 09/24/16 0510 09/24/16 0510 Results 24 hrs Laboratory Tests Test 09/24/16 17:08 09/24/16 21:21 09/25/16 07:45 09/25/16 11:46 Bedside Glucose 93 116 90 114 Medications Current Medications Ondansetron HCl (Zofran Inj) 4 mg Q6H PRN IV NAUSEA AND/OR VOMITING; Start 09/18 at 14:00 Acetaminophen (Tylenol Tab) 650 mg Q6H PRN PO PAIN LEVEL 1-3 OR FEVER Last administered on 09/22/16 22:20; Admin Dose 650 MG; Start 09/18/16 at 14:00 Pantoprazole (Protonix Tab) 40 mg DAILY@06 PO Last administered on 09/25/16 05 :45; Admin Dose 40 MG; Start 09/19/16 at 06:00 Heparin Sodium (Porcine) (Heparin (5000 Units/0.5 ml)) 5,000 unit Q12 SC Last administered on 09/25/16 09:58; Admin Dose 5,000 UNIT; Start 09/18/16 at 21:00 Tramadol HCl (Ultram) 50 mg BID PRN PO pain Last administered on 09/24/16 09: 53; Admin Dose 50 MG; Start 09/18/16 at 14:00 Lorazepam (Ativan) 0.5 mg BID PRN PO ANXIETY Last administered on 09/24/16 23: 45; Admin Dose 0.5 MG; Start 09/18/16 at 14:00 Cholecalciferol (Vitamin D) 1,000 unit DAILY PO Last administered on 09/25/16 09:36; Admin Dose 1,000 UNIT; Start 09/19/16 at 09:00 Loratadine (Claritin) 10 mg DAILY PO Last administered on 09/25/16 09:35; Admin Dose 10 MG; Start 09/19/16 at 09:00 Metoprolol Tartrate (Lopressor) 50 mg BID PO Last administered on 09/25/16 09: 36; Admin Dose 50 MG; Start 09/18/16 at 21:00 Sertraline HCl (Zoloft) 50 mg DAILY PO Last administered on 09/25/16 09:37; Admin Dose 50 MG; Start 09/19/16 at 09:00 Diagnostic Test (Pha) (Accucheck) 1 ea 02 XX ; Start 09/19/16 at 02:00 Miscellaneous Information 1 ea NOTE XX ; Start 09/18/16 at 14:00 Glucose (Glutose) 15 gm Q15M PRN PO DECREASED GLUCOSE; Start 09/18/16 at 14:00 Glucose (Glutose) 22.5 gm Q15M PRN PO DECREASED GLUCOSE; Start 09/18/16 at 14:00 Dextrose (D50w Syringe) 25 ml Q15M PRN IV DECREASED GLUCOSE; Start 09/18/16 at 14:00 Dextrose (D50w Syringe) 50 ml Q15M PRN IV DECREASED GLUCOSE; Start 09/18/16 at 14:00 Glucagon (Glucagen) 1 mg Q15M PRN IM DECREASED GLUCOSE; Start 09/18/16 at 14:00 Glucose (Glutose) 15 gm Q15M PRN BUCCAL DECREASED GLUCOSE; Start 09/18/16 at 14: 00 Calcitriol (Rocaltrol) 0.25 mcg DAILY PO Last administered on 09/25/16 09:36; Admin Dose 0.25 MCG; Start 09/19/16 at 10:00 Nystatin (Nystatin Powder) 1 applic BID TOP Last administered on 09/25/16 09: 37; Admin Dose 1 APPLIC; Start 09/19/16 at 21:00 Levothyroxine Sodium (Synthroid) 75 mcg DAILY@06 PO Last administered on 05:46; Admin Dose 75 MCG; Start 09/21/16 at 06:00 Sodium Bicarbonate (Sodium Bicarbonate Tab) 650 mg TID PO Last administered on 09/25/16 11:57; Admin Dose 650 MG; Start 09/22/16 at 09:00 Potassium Chloride (Potassium Chloride Pwd/Soln) 20 meq DAILY PO Last administered on 09/25/16 09:36; Admin Dose 20 MEQ; Start 09/23/16 at 09:00 Vancomycin HCl (Vancomycin Oral Syringe) 250 mg Q6 PO Last administered on 09/25 11:52; Admin Dose 250 MG; Start 09/24/16 at 12:00 Lactobacillus Acidoph/ Bulgaricus 1 tab 1 tab TID PO Last administered on 11:58; Admin Dose 1 TAB; Start 09/24/16 at 13:00 Dextrose (D5W) 1,000 ml @ 50 mls/hr Q20H IV Last administered on 09/25/16 03: 49; Admin Dose 50 MLS/HR; Start 09/24/16 at 19:00 Assessment/Plan Chief Complaint/Hosp Course ANTIMICROBIALS: Oral vancomycin PHYSICAL EXAMINATION: GENERAL: This is a fragile, elderly woman who is awake, in no distress. HEENT: Head atraumatic, normocephalic. Sclerae anicteric. Buccal mucosa dry. NECK: Supple, trachea midline. CHEST: Rise symmetrical. Breath sounds clear. HEART: S1, S2. ABDOMEN: Soft. Bowel tones present. EXTREMITIES: No cyanosis. ASSESSMENT: 1. Status post Escherichia coli extended-spectrum beta-lactamase urinary tract infection, completed treatment with cefepime for 7 days. 2. Clostridium difficile colitis. 3. History of urostomy. 4. Diabetes. 5. Hypertension. PLAN: The patient is clinically stable, diarrhea improved, continue PO [facility] staff Problems: GIGI WADE NP Sep 25, 2016 15:32
[2016-09-25 19:54] VITALS: BP 151/68; RESP 16
[2016-09-26] MEDS: VANCOMYCIN HCL 250 MG/5ML POSYG PO SCH ×4 (00:51→17:10)
[2016-09-26] MEDS: DEXTROSE 5% 1,000 ML IV SCH (00:51)
[2016-09-26] MEDS: ACCUCHECK XX SCH (01:38)
[2016-09-26] MEDS: traMADol 50 MG TAB PO PRN (05:10)
[2016-09-26] MEDS: LEVOTHYROXINE 75 MCG TAB PO SCH (05:10)
[2016-09-26] MEDS: PANTOPRAZOLE (EC) 40 MG TAB PO SCH (05:10)
[2016-09-26 06:50] LABS: BASOPHILS % 0.3 % (0.0-2.0); EOSINOPHILS # 0.4 10^3/ul (0.0-0.5); EOSINOPHILS % 3.2 % (0.0-7.0); HEMATOCRIT 32.3 % (37.0-47.0); HEMOGLOBIN 10.6 g/dl (12.0-16.0); LYMPHOCYTES # 2.6 10^3/ul (0.8-2.9); LYMPHOCYTES % 20.4 % (15.0-51.0); MEAN CORPUSCULAR HEMOGLOBIN 28.4 pg (29.0-33.0); MEAN CORPUSCULAR HGB CONC 32.8 g/dl (32.0-37.0); MEAN CORPUSCULAR VOLUME 86.6 fl (82.0-101.0); MEAN PLATELET VOLUME 7.9 fl (7.4-10.4); MONOCYTE # 0.9 10^3/ul (0.3-0.9); MONOCYTES % 7.1 % (0.0-11.0); NEUTROPHIL # 8.9 10^3/ul (1.6-7.5); PLATELET COUNT 252 10^3/UL (140-440); RED BLOOD COUNT 3.73 10^6/ul (4.20-5.40); RED CELL DISTRIBUTION WIDTH 16.4 % (11.5-14.5); UNCORRECTED WBC 12.8 10^3/ul (4.8-10.8); WHITE BLOOD COUNT 12.8 10^3/ul (4.8-10.8)
[2016-09-26 07:13] LABS: ALBUMIN 2.7 g/dl (3.3-4.9); POTASSIUM 3.6 mmol/L (3.5-5.1)
[2016-09-26 07:15] LABS: BILIRUBIN,INDIRECT 0.2 mg/dl (0-1.1); BILIRUBIN,TOTAL 0.2 mg/dl (0.2-1.3); CREATININE 1.24 mg/dl (0.44-1.00)
[2016-09-26 07:16] LABS: ALBUMIN/GLOBULIN RATIO 0.93; PHOSPHORUS 1.5 mg/dl (2.5-4.9); TOTAL PROTEIN 5.6 g/dl (6.1-8.1)
[2016-09-26 07:17] LABS: MAGNESIUM 1.4 mg/dl (1.7-2.5)
[2016-09-26 07:22] LABS: CONDITION 1; LH ANALYZER COMMENTS 1
[2016-09-26 07:26] VITALS: BP 162/69; RESP 18
[2016-09-26] MEDS: INSULIN ASPART [NOVOLOG] 3 ML PEN SC SCH ×4 (08:15→21:00)
[2016-09-26] MEDS: LORATADINE 10 MG TAB PO SCH (09:11)
[2016-09-26] MEDS: CHOLECALCIFEROL 1,000 UNIT TAB PO SCH (09:11)
[2016-09-26] MEDS: SERTRALINE 50 MG TAB PO SCH (09:11)
[2016-09-26] MEDS: POTASSIUM CHLORIDE 20 MEQ POWDER FOR ORAL SOLN PO SCH (09:11)
[2016-09-26] MEDS: CALCIUM ACETATE 667 MG CAP PO SCH ×3 (09:12→17:10)
[2016-09-26] MEDS: LACTOBACILLUS CHEW TAB PO SCH ×3 (09:12→22:34)
[2016-09-26] MEDS: CALCITRIOL 0.25 MCG CAP PO SCH (09:12)
[2016-09-26] MEDS: NA BICARBONATE 650 MG TAB PO SCH ×3 (09:12→22:34)
[2016-09-26] MEDS: METOPROLOL 50 MG TAB PO SCH ×2 (09:13→22:35)
[2016-09-26] MEDS: NYSTATIN 30 GM POWDER BTL TOP SCH ×2 (09:13→22:35)
[2016-09-26] MEDS: HEPARIN 5,000 UNIT/0.5 ML SYG SC SCH ×2 (09:16→22:39)
--- NOTE | 2016-09-26 09:51 | CONS ---
Date/Time of Note Date/Time of Note DATE: 09/26/16 TIME: 09:47 Assessment/Plan Assessment/Plan Chief Complaint/Hosp Course 1. acute renal failure superimposed on CKD , mostly due to dehydration . she is getting IV fluids and renal function is improving . 2. dementia , she is more alert today; however , she is tearful . I suspect her sadness is due to dementia and deteriorating health .. 3. anemia of CKD 4. UTI , has been treated with cefepime. The cefepime was discontinued because of diarrhea..Urine is now clear . 5. low Mag , will replace , low phos . anorexia 6. low potassium , being replaced . 7. will start D/C planning , I had a discussion with the and he wants rehabilitation center placement. I will put in for case management to evaluate for [facility]. 8. She has C. difficile colitis. She is on oral vancomycin for this. She has been seen by infectious disease specialist Dr. Mosqueda.This is getting better Problems: Consultation Date/Type/Reason Admit Date/Time Sep 18, 2016 at 12:23 Type of Consultation: ID [id number] HR Interval Summary Free Text/Dictation She is awake but tearful . She denies pain or diarrhea . Exam/Review of Systems Vital Signs Vitals Vital Signs Date Time Temp Pulse Resp B/P Pulse Ox O2 Delivery O2 Flow Rate FiO2 09/26/16 07:26 97.7 72 18 162/69 98 Intake and Output 09/25/16 09/25/16 09/26/16 15:00 23:00 07:00 Intake Total 900 ml 740 ml Output Total 300 ml 400 ml Balance 600 ml 340 ml Exam Constitutional: alert Psych: confusion, depression Respiratory: clear to auscultation, normal air movement Cardiovascular: regular rate and rhythm Gastrointestinal: soft Musculoskeletal: nl extremities to inspection Results Result Diagram: 09/26/16 0515 09/26/16 0515 Results 24 hrs Laboratory Tests Test 09/25/16 11:46 09/25/16 17:07 09/25/16 21:11 09/26/16 05:15 Bedside Glucose 114 113 97 Alanine Aminotransferase (ALT/SGPT) 18 Albumin 2.7 L Albumin/Globulin Ratio 0.93 Alkaline Phosphatase 125 H Anion Gap 14 Aspartate Amino Transf (AST/SGOT) 15 Basophils # 0.0 Basophils % 0.3 Blood Morphology Comment Blood Urea Nitrogen 19 Calcium Level 8.0 L Carbon Dioxide Level 27 Chloride Level 100 Creatinine 1.24 H Direct Bilirubin 0.00 Eosinophils # 0.4 Eosinophils % 3.2 Globulin 2.90 Glucose Level 82 Hematocrit 32.3 L Hemoglobin 10.6 L Indirect Bilirubin 0.2 Lymphocytes # 2.6 Lymphocytes % 20.4 Magnesium Level 1.4 L Mean Corpuscular Hemoglobin 28.4 L Mean Corpuscular Hemoglobin Concent 32.8 Mean Corpuscular Volume 86.6 Mean Platelet Volume 7.9 Monocytes # 0.9 Monocytes % 7.1 Neutrophils # 8.9 H Neutrophils % 69.0 Nucleated Red Blood Cells # 0.0 Nucleated Red Blood Cells % 0.0 Phosphorus Level 1.5 L Platelet Count 252 Potassium Level 3.6 Red Blood Count 3.73 L Red Cell Distribution Width 16.4 H Sodium Level 137 Total Bilirubin 0.2 Total Protein 5.6 L White Blood Count 12.8 H Test 09/26/16 08:01 Bedside Glucose 88 Medications Medications Current Medications Ondansetron HCl (Zofran Inj) 4 mg Q6H PRN IV NAUSEA AND/OR VOMITING; Start 09/18 at 14:00 Acetaminophen (Tylenol Tab) 650 mg Q6H PRN PO PAIN LEVEL 1-3 OR FEVER Last administered on 09/22/16 22:20; Admin Dose 650 MG; Start 09/18/16 at 14:00 Pantoprazole (Protonix Tab) 40 mg DAILY@06 PO Last administered on 09/26/16 05 :10; Admin Dose 40 MG; Start 09/19/16 at 06:00 Heparin Sodium (Porcine) (Heparin (5000 Units/0.5 ml)) 5,000 unit Q12 SC Last administered on 09/26/16 09:16; Admin Dose 5,000 UNIT; Start 09/18/16 at 21:00 Tramadol HCl (Ultram) 50 mg BID PRN PO pain Last administered on 09/26/16 05: 10; Admin Dose 50 MG; Start 09/18/16 at 14:00 Lorazepam (Ativan) 0.5 mg BID PRN PO ANXIETY Last administered on 09/24/16 23: 45; Admin Dose 0.5 MG; Start 09/18/16 at 14:00 Cholecalciferol (Vitamin D) 1,000 unit DAILY PO Last administered on 09/26/16 09:11; Admin Dose 1,000 UNIT; Start 09/19/16 at 09:00 Loratadine (Claritin) 10 mg DAILY PO Last administered on 09/26/16 09:11; Admin Dose 10 MG; Start 09/19/16 at 09:00 Metoprolol Tartrate (Lopressor) 50 mg BID PO Last administered on 09/26/16 09: 13; Admin Dose 50 MG; Start 09/18/16 at 21:00 Sertraline HCl (Zoloft) 50 mg DAILY PO Last administered on 09/26/16 09:11; Admin Dose 50 MG; Start 09/19/16 at 09:00 Diagnostic Test (Pha) (Accucheck) 1 ea 02 XX ; Start 09/19/16 at 02:00 Miscellaneous Information 1 ea NOTE XX ; Start 09/18/16 at 14:00 Glucose (Glutose) 15 gm Q15M PRN PO DECREASED GLUCOSE; Start 09/18/16 at 14:00 Glucose (Glutose) 22.5 gm Q15M PRN PO DECREASED GLUCOSE; Start 09/18/16 at 14:00 Dextrose (D50w Syringe) 25 ml Q15M PRN IV DECREASED GLUCOSE; Start 09/18/16 at 14:00 Dextrose (D50w Syringe) 50 ml Q15M PRN IV DECREASED GLUCOSE; Start 09/18/16 at 14:00 Glucagon (Glucagen) 1 mg Q15M PRN IM DECREASED GLUCOSE; Start 09/18/16 at 14:00 Glucose (Glutose) 15 gm Q15M PRN BUCCAL DECREASED GLUCOSE; Start 09/18/16 at 14: 00 Calcitriol (Rocaltrol) 0.25 mcg DAILY PO Last administered on 09/26/16 09:12; Admin Dose 0.25 MCG; Start 09/19/16 at 10:00 Nystatin (Nystatin Powder) 1 applic BID TOP Last administered on 09/26/16 09: 13; Admin Dose 1 APPLIC; Start 09/19/16 at 21:00 Levothyroxine Sodium (Synthroid) 75 mcg DAILY@06 PO Last administered on 05:10; Admin Dose 75 MCG; Start 09/21/16 at 06:00 Sodium Bicarbonate (Sodium Bicarbonate Tab) 650 mg TID PO Last administered on 09/26/16 09:12; Admin Dose 650 MG; Start 09/22/16 at 09:00 Potassium Chloride (Potassium Chloride Pwd/Soln) 20 meq DAILY PO Last administered on 09/26/16 09:11; Admin Dose 20 MEQ; Start 09/23/16 at 09:00 Vancomycin HCl (Vancomycin Oral Syringe) 250 mg Q6 PO Last administered on 09/26 05:10; Admin Dose 250 MG; Start 09/24/16 at 12:00 Lactobacillus Acidoph/ Bulgaricus 1 tab 1 tab TID PO Last administered on 09:12; Admin Dose 1 TAB; Start 09/24/16 at 13:00 Dextrose (D5W) 1,000 ml @ 50 mls/hr Q20H IV Last administered on 09/26/16 00: 51; Admin Dose 50 MLS/HR; Start 09/24/16 at 19:00 LUBNA CLEMENTE MD Sep 26, 2016 09:51
[2016-09-26] MEDS ORDERED: MAGNESIUM SULFATE 2 GM/50 ML 50 ML IVPB ONE (10:00)
--- NOTE | 2016-09-26 10:00 | PN ---
DATE: SUBJECTIVE: The patient appears to be much more alert this morning, answering questions appropriate ly. Said she ambulated yesterday. Overall she feels better, is what she is currently saying. OBJECTIVE: VITAL SIGNS: Reveal the following: Temperature 97.7, pulse 72, respirations 18, temperature 162/69 , O2 sat 98%. HEENT: Unremarkable. LUNGS: Clear. HEART: Reveals a regular rhythm. IMPRESSION: 1. Chronic renal failure. 2. Urinary tract infection, resolving. 3. Diabetes mellitus type 2. 4. Hypertension. 5. Cognitive disorder. DISCUSSION: Review of laboratory and other data reveals the following: The patient's CBC reveals a white count of 12.8 with a hemoglobin being 10.6, hematocrit 32.3. Chemistries done this morning r eveal normal electrolytes, BUN 19, creatinine is down to 1.24. Random glucoses have all been in the low 100s to double digits. The rest of the parameters are unremarkable. PLAN: Per ID and renal in terms of ultimate management for this particular patient. Condition toda y is improved. Dictated By: DOUG BRINK MD SS/NTS Conf#: [id number] DID#: [id number]
[2016-09-26] MEDS: POTASSIUM CHLORIDE IV SCH ×2 (12:38→22:05)
[2016-09-26] MEDS: POTASSIUM PHOSPHATE IV SCH ×2 (12:38→22:05)
[2016-09-26] MEDS: SOD CHLORIDE 0.45% IV SCH ×2 (12:38→22:05)
[2016-09-26] MEDS: MULTIVITAMINS/MINERALS TAB PO SCH (12:46)
--- NOTE | 2016-09-26 19:50 | CONS ---
Date/Time of Note Date/Time of Note DATE: 09/26/16 TIME: 19:49 Consult Date/Type/Reason Admit Date/Time Sep 18, 2016 at 12:23 Type of Consultation: ID Subjective no events, awake, lying comfortably in bed, no fevers, still with loose stools Objective Vital Signs Date Time Temp Pulse Resp B/P Pulse Ox O2 Delivery O2 Flow Rate FiO2 09/26/16 07:26 97.7 72 18 162/69 98 Intake and Output 09/25/16 09/25/16 09/26/16 15:00 23:00 07:00 Intake Total 900 ml 740 ml Output Total 300 ml 400 ml Balance 600 ml 340 ml Results/Medications Result Diagram: 09/26/1651409/26/1615 Results 24 hrs Laboratory Tests Test 09/25/16 21:11 09/26/16 05:15 09/26/16 08:01 09/26/16 12:10 Bedside Glucose 97 88 116 Alanine Aminotransferase (ALT/SGPT) 18 Albumin 2.7 L Albumin/Globulin Ratio 0.93 Alkaline Phosphatase 125 H Anion Gap 14 Aspartate Amino Transf (AST/SGOT) 15 Basophils # 0.0 Basophils % 0.3 Blood Morphology Comment Blood Urea Nitrogen 19 Calcium Level 8.0 L Carbon Dioxide Level 27 Chloride Level 100 Creatinine 1.24 H Direct Bilirubin 0.00 Eosinophils # 0.4 Eosinophils % 3.2 Globulin 2.90 Glucose Level 82 Hematocrit 32.3 L Hemoglobin 10.6 L Indirect Bilirubin 0.2 Lymphocytes # 2.6 Lymphocytes % 20.4 Magnesium Level 1.4 L Mean Corpuscular Hemoglobin 28.4 L Mean Corpuscular Hemoglobin Concent 32.8 Mean Corpuscular Volume 86.6 Mean Platelet Volume 7.9 Monocytes # 0.9 Monocytes % 7.1 Neutrophils # 8.9 H Neutrophils % 69.0 Nucleated Red Blood Cells # 0.0 Nucleated Red Blood Cells % 0.0 Phosphorus Level 1.5 L Platelet Count 252 Potassium Level 3.6 Red Blood Count 3.73 L Red Cell Distribution Width 16.4 H Sodium Level 137 Total Bilirubin 0.2 Total Protein 5.6 L White Blood Count 12.8 H Test 09/26/16 17:10 Bedside Glucose 92 Medications Current Medications Ondansetron HCl (Zofran Inj) 4 mg Q6H PRN IV NAUSEA AND/OR VOMITING; Start 09/18 at 14:00 Acetaminophen (Tylenol Tab) 650 mg Q6H PRN PO PAIN LEVEL 1-3 OR FEVER Last administered on 09/22/16 22:20; Admin Dose 650 MG; Start 09/18/16 at 14:00 Pantoprazole (Protonix Tab) 40 mg DAILY@06 PO Last administered on 09/26/16 05 :10; Admin Dose 40 MG; Start 09/19/16 at 06:00 Heparin Sodium (Porcine) (Heparin (5000 Units/0.5 ml)) 5,000 unit Q12 SC Last administered on 09/26/16 09:16; Admin Dose 5,000 UNIT; Start 09/18/16 at 21:00 Tramadol HCl (Ultram) 50 mg BID PRN PO pain Last administered on 09/26/16 05: 10; Admin Dose 50 MG; Start 09/18/16 at 14:00 Lorazepam (Ativan) 0.5 mg BID PRN PO ANXIETY Last administered on 09/24/16 23: 45; Admin Dose 0.5 MG; Start 09/18/16 at 14:00 Cholecalciferol (Vitamin D) 1,000 unit DAILY PO Last administered on 09/26/16 09:11; Admin Dose 1,000 UNIT; Start 09/19/16 at 09:00 Loratadine (Claritin) 10 mg DAILY PO Last administered on 09/26/16 09:11; Admin Dose 10 MG; Start 09/19/16 at 09:00 Metoprolol Tartrate (Lopressor) 50 mg BID PO Last administered on 09/26/16 09: 13; Admin Dose 50 MG; Start 09/18/16 at 21:00 Sertraline HCl (Zoloft) 50 mg DAILY PO Last administered on 09/26/16 09:11; Admin Dose 50 MG; Start 09/19/16 at 09:00 Diagnostic Test (Pha) (Accucheck) 1 ea 02 XX ; Start 09/19/16 at 02:00 Miscellaneous Information 1 ea NOTE XX ; Start 09/18/16 at 14:00 Glucose (Glutose) 15 gm Q15M PRN PO DECREASED GLUCOSE; Start 09/18/16 at 14:00 Glucose (Glutose) 22.5 gm Q15M PRN PO DECREASED GLUCOSE; Start 09/18/16 at 14:00 Dextrose (D50w Syringe) 25 ml Q15M PRN IV DECREASED GLUCOSE; Start 09/18/16 at 14:00 Dextrose (D50w Syringe) 50 ml Q15M PRN IV DECREASED GLUCOSE; Start 09/18/16 at 14:00 Glucagon (Glucagen) 1 mg Q15M PRN IM DECREASED GLUCOSE; Start 09/18/16 at 14:00 Glucose (Glutose) 15 gm Q15M PRN BUCCAL DECREASED GLUCOSE; Start 09/18/16 at 14: 00 Calcitriol (Rocaltrol) 0.25 mcg DAILY PO Last administered on 09/26/16 09:12; Admin Dose 0.25 MCG; Start 09/19/16 at 10:00 Nystatin (Nystatin Powder) 1 applic BID TOP Last administered on 09/26/16 09: 13; Admin Dose 1 APPLIC; Start 09/19/16 at 21:00 Levothyroxine Sodium (Synthroid) 75 mcg DAILY@06 PO Last administered on 05:10; Admin Dose 75 MCG; Start 09/21/16 at 06:00 Sodium Bicarbonate (Sodium Bicarbonate Tab) 650 mg TID PO Last administered on 09/26/16 12:38; Admin Dose 650 MG; Start 09/22/16 at 09:00 Vancomycin HCl (Vancomycin Oral Syringe) 250 mg Q6 PO Last administered on 09/26 12:38; Admin Dose 250 MG; Start 09/24/16 at 12:00 Lactobacillus Acidoph/ Bulgaricus 1 tab 1 tab TID PO Last administered on 12:38; Admin Dose 1 TAB; Start 09/24/16 at 13:00 Potassium Chloride/ Potassium Phosphate/Sodium Chloride (KCl/K Phos (Meq)/1/2 NS ) 1,007.2727 ml @ 100 mls/hr Q10H5M IV Last administered on 09/26/16 12:38; Admin Dose 100 MLS/HR; Start 09/26/16 at 12:00 Multivitamins/ Minerals (Theragran-M) 1 tab DAILY PO Last administered on 12:46; Admin Dose 1 TAB; Start 09/26/16 at 10:00 Assessment/Plan Chief Complaint/Hosp Course ANTIMICROBIALS: Oral vancomycin PHYSICAL EXAMINATION: GENERAL: This is a fragile, elderly woman who is awake, in no distress. HEENT: Head atraumatic, normocephalic. Sclerae anicteric. Buccal mucosa dry. NECK: Supple, trachea midline. CHEST: Rise symmetrical. Breath sounds clear. HEART: S1, S2. ABDOMEN: Soft. Bowel tones present. EXTREMITIES: No cyanosis. ASSESSMENT: 1. Status post Escherichia coli extended-spectrum beta-lactamase urinary tract infection, completed treatment with cefepime for 7 days. 2. Clostridium difficile colitis. 3. History of urostomy. 4. Diabetes. 5. Hypertension. PLAN: Clinically stable, continue PO Vanco/probiotics [facility] staff Problems: GIGI WADE NP Sep 26, 2016 19:50
[2016-09-26 20:05] VITALS: BP 166/72; RESP 16
[2016-09-27] MEDS: SOD CHLORIDE 0.45% IV SCH ×2 (01:12→14:58)
[2016-09-27] MEDS: POTASSIUM PHOSPHATE IV SCH ×2 (01:12→14:58)
[2016-09-27] MEDS: VANCOMYCIN HCL 250 MG/5ML POSYG PO SCH ×4 (01:12→17:42)
[2016-09-27] MEDS: POTASSIUM CHLORIDE IV SCH ×2 (01:12→14:58)
[2016-09-27] MEDS: ACCUCHECK XX SCH (02:00)
[2016-09-27 06:15] LABS: ALBUMIN 2.5 g/dl (3.3-4.9)
[2016-09-27 06:16] LABS: POTASSIUM 4.5 mmol/L (3.5-5.1)
[2016-09-27 06:18] LABS: BILIRUBIN,INDIRECT 0.1 mg/dl (0-1.1); BILIRUBIN,TOTAL 0.1 mg/dl (0.2-1.3); CREATININE 1.22 mg/dl (0.44-1.00)
[2016-09-27 06:19] LABS: ALBUMIN/GLOBULIN RATIO 0.92; CALCIUM 8.1 mg/dl (8.4-10.2); MAGNESIUM 1.9 mg/dl (1.7-2.5); PHOSPHORUS 3.5 mg/dl (2.5-4.9); TOTAL PROTEIN 5.2 g/dl (6.1-8.1)
[2016-09-27] MEDS: LEVOTHYROXINE 75 MCG TAB PO SCH (06:21)
[2016-09-27] MEDS: PANTOPRAZOLE (EC) 40 MG TAB PO SCH (06:21)
[2016-09-27 06:23] LABS: BASOPHILS % 0.3 % (0.0-2.0); EOSINOPHILS # 0.5 10^3/ul (0.0-0.5); EOSINOPHILS % 4.2 % (0.0-7.0); HEMATOCRIT 31.5 % (37.0-47.0); HEMOGLOBIN 10.4 g/dl (12.0-16.0); LYMPHOCYTES # 2.1 10^3/ul (0.8-2.9); LYMPHOCYTES % 16.8 % (15.0-51.0); MEAN CORPUSCULAR HEMOGLOBIN 28.5 pg (29.0-33.0); MEAN CORPUSCULAR HGB CONC 33.1 g/dl (32.0-37.0); MEAN CORPUSCULAR VOLUME 86.3 fl (82.0-101.0); MEAN PLATELET VOLUME 8.1 fl (7.4-10.4); MONOCYTE # 0.9 10^3/ul (0.3-0.9); MONOCYTES % 7.5 % (0.0-11.0); NEUTROPHILS % 71.2 % (39.0-77.0); PLATELET COUNT 229 10^3/UL (140-440); RED BLOOD COUNT 3.65 10^6/ul (4.20-5.40); RED CELL DISTRIBUTION WIDTH 16.5 % (11.5-14.5); UNCORRECTED WBC 12.6 10^3/ul (4.8-10.8); WHITE BLOOD COUNT 12.6 10^3/ul (4.8-10.8)
[2016-09-27 06:49] LABS: CONDITION 1; LH ANALYZER COMMENTS 1
[2016-09-27 07:44] VITALS: BP 140/64; RESP 18
[2016-09-27] MEDS: INSULIN ASPART [NOVOLOG] 3 ML PEN SC SCH ×4 (08:15→21:00)
[2016-09-27] MEDS: CALCITRIOL 0.25 MCG CAP PO SCH (09:22)
[2016-09-27] MEDS: SERTRALINE 50 MG TAB PO SCH (09:22)
[2016-09-27] MEDS: LACTOBACILLUS CHEW TAB PO SCH ×3 (09:22→21:09)
[2016-09-27] MEDS: CHOLECALCIFEROL 1,000 UNIT TAB PO SCH (09:22)
[2016-09-27] MEDS: NA BICARBONATE 650 MG TAB PO SCH ×3 (09:22→21:09)
[2016-09-27] MEDS: LORATADINE 10 MG TAB PO SCH (09:23)
[2016-09-27] MEDS: CALCIUM ACETATE 667 MG CAP PO SCH ×3 (09:23→17:42)
[2016-09-27] MEDS: METOPROLOL 50 MG TAB PO SCH ×2 (09:23→21:13)
[2016-09-27] MEDS: MULTIVITAMINS/MINERALS TAB PO SCH (09:23)
[2016-09-27] MEDS: NYSTATIN 30 GM POWDER BTL TOP SCH ×2 (09:24→21:15)
[2016-09-27] MEDS: HEPARIN 5,000 UNIT/0.5 ML SYG SC SCH ×2 (09:36→21:30)
--- NOTE | 2016-09-27 10:54 | PN ---
Date/Time of Note Date/Time of Note DATE: 09/27/16 TIME: 10:52 Assessment/Plan VTE Prophylaxis VTE Prophylaxis Intervention: other Lines/Catheters IV Catheter Type (from Nrs): Peripheral IV Central line still needed: Yes Assessment/Plan Assessment/Plan 1. ARF resolved. 2. C diff colitis, being treated 3. Cognitive impairment, chronic 4. Anemia, will pursue (see orders) 5. Case management evaluating transfer to [facility] Subjective 24 Hr Interval Summary Respiratory: No shortness of breath Cardiovascular: No chest pain, No lightheadedness Gastrointestinal: no complaints Genitourinary: no complaints Exam/Review of Systems Vital Signs Vitals Vital Signs Date Time Temp Pulse Resp B/P Pulse Ox O2 Delivery O2 Flow Rate FiO2 09/27/16 07:44 98.9 83 18 140/64 98 Intake and Output 09/26/16 09/26/16 09/27/16 15:00 23:00 07:00 Intake Total 720 ml 1557.2727 ml Output Total 300 ml Balance 720 ml 1257.2727 ml Exam Neck: No jvd Respiratory: clear to auscultation Cardiovascular: regular rate and rhythm Gastrointestinal: soft Extremities: tenderness (and no calf tend), No edema (and no) Results Result Diagram: 09/27/16 0500 09/27/16 0500 Results 24 hrs Laboratory Tests Test 09/26/16 12:10 09/26/16 17:10 09/26/16 22:33 09/27/16 05:00 Bedside Glucose 116 92 83 Alanine Aminotransferase (ALT/SGPT) 21 Albumin 2.5 L Albumin/Globulin Ratio 0.92 Alkaline Phosphatase 115 Anion Gap 14 Aspartate Amino Transf (AST/SGOT) 14 L Basophils # 0.0 Basophils % 0.3 Blood Morphology Comment Blood Urea Nitrogen 15 Calcium Level 8.1 L Carbon Dioxide Level 24 Chloride Level 101 Creatinine 1.22 H Direct Bilirubin 0.00 Eosinophils # 0.5 Eosinophils % 4.2 Globulin 2.70 Glucose Level 84 Hematocrit 31.5 L Hemoglobin 10.4 L Indirect Bilirubin 0.1 Lymphocytes # 2.1 Lymphocytes % 16.8 Magnesium Level 1.9 Mean Corpuscular Hemoglobin 28.5 L Mean Corpuscular Hemoglobin Concent 33.1 Mean Corpuscular Volume 86.3 Mean Platelet Volume 8.1 Monocytes # 0.9 Monocytes % 7.5 Neutrophils # 9.0 H Neutrophils % 71.2 Nucleated Red Blood Cells # 0.0 Nucleated Red Blood Cells % 0.0 Phosphorus Level 3.5 # Platelet Count 229 Potassium Level 4.5 Red Blood Count 3.65 L Red Cell Distribution Width 16.5 H Sodium Level 134 L Total Bilirubin 0.1 L Total Protein 5.2 L White Blood Count 12.6 H Test 09/27/16 07:45 Bedside Glucose 76 Medications Medications Current Medications Ondansetron HCl (Zofran Inj) 4 mg Q6H PRN IV NAUSEA AND/OR VOMITING; Start 09/18 at 14:00 Acetaminophen (Tylenol Tab) 650 mg Q6H PRN PO PAIN LEVEL 1-3 OR FEVER Last administered on 09/22/16 22:20; Admin Dose 650 MG; Start 09/18/16 at 14:00 Pantoprazole (Protonix Tab) 40 mg DAILY@06 PO Last administered on 09/27/16 06 :21; Admin Dose 40 MG; Start 09/19/16 at 06:00 Heparin Sodium (Porcine) (Heparin (5000 Units/0.5 ml)) 5,000 unit Q12 SC Last administered on 09/27/16 09:36; Admin Dose 5,000 UNIT; Start 09/18/16 at 21:00 Tramadol HCl (Ultram) 50 mg BID PRN PO pain Last administered on 09/26/16 05: 10; Admin Dose 50 MG; Start 09/18/16 at 14:00 Lorazepam (Ativan) 0.5 mg BID PRN PO ANXIETY Last administered on 09/24/16 23: 45; Admin Dose 0.5 MG; Start 09/18/16 at 14:00 Cholecalciferol (Vitamin D) 1,000 unit DAILY PO Last administered on 09/27/16 09:22; Admin Dose 1,000 UNIT; Start 09/19/16 at 09:00 Loratadine (Claritin) 10 mg DAILY PO Last administered on 09/27/16 09:23; Admin Dose 10 MG; Start 09/19/16 at 09:00 Metoprolol Tartrate (Lopressor) 50 mg BID PO Last administered on 09/27/16 09: 23; Admin Dose 50 MG; Start 09/18/16 at 21:00 Sertraline HCl (Zoloft) 50 mg DAILY PO Last administered on 09/27/16 09:22; Admin Dose 50 MG; Start 09/19/16 at 09:00 Diagnostic Test (Pha) (Accucheck) 1 ea 02 XX ; Start 09/19/16 at 02:00 Miscellaneous Information 1 ea NOTE XX ; Start 09/18/16 at 14:00 Glucose (Glutose) 15 gm Q15M PRN PO DECREASED GLUCOSE; Start 09/18/16 at 14:00 Glucose (Glutose) 22.5 gm Q15M PRN PO DECREASED GLUCOSE; Start 09/18/16 at 14:00 Dextrose (D50w Syringe) 25 ml Q15M PRN IV DECREASED GLUCOSE; Start 09/18/16 at 14:00 Dextrose (D50w Syringe) 50 ml Q15M PRN IV DECREASED GLUCOSE; Start 09/18/16 at 14:00 Glucagon (Glucagen) 1 mg Q15M PRN IM DECREASED GLUCOSE; Start 09/18/16 at 14:00 Glucose (Glutose) 15 gm Q15M PRN BUCCAL DECREASED GLUCOSE; Start 09/18/16 at 14: 00 Calcitriol (Rocaltrol) 0.25 mcg DAILY PO Last administered on 09/27/16 09:22; Admin Dose 0.25 MCG; Start 09/19/16 at 10:00 Nystatin (Nystatin Powder) 1 applic BID TOP Last administered on 09/27/16 09: 24; Admin Dose 1 APPLIC; Start 09/19/16 at 21:00 Levothyroxine Sodium (Synthroid) 75 mcg DAILY@06 PO Last administered on 06:21; Admin Dose 75 MCG; Start 09/21/16 at 06:00 Sodium Bicarbonate (Sodium Bicarbonate Tab) 650 mg TID PO Last administered on 09/27/16 09:22; Admin Dose 650 MG; Start 09/22/16 at 09:00 Vancomycin HCl (Vancomycin Oral Syringe) 250 mg Q6 PO Last administered on 09/27 06:21; Admin Dose 250 MG; Start 09/24/16 at 12:00 Lactobacillus Acidoph/ Bulgaricus 1 tab 1 tab TID PO Last administered on 09:22; Admin Dose 1 TAB; Start 09/24/16 at 13:00 Potassium Chloride/ Potassium Phosphate/Sodium Chloride (KCl/K Phos (Meq)/1/2 NS ) 1,007.2727 ml @ 100 mls/hr Q10H5M IV Last administered on 09/27/16 01:12; Admin Dose 100 MLS/HR; Start 09/26/16 at 12:00 Multivitamins/ Minerals (Theragran-M) 1 tab DAILY PO Last administered on 09:23; Admin Dose 1 TAB; Start 09/26/16 at 10:00 DESTINEE FERRO MD Sep 27, 2016 10:54
--- NOTE | 2016-09-27 17:00 | CONS ---
Date/Time of Note Date/Time of Note DATE: 09/27/16 TIME: 16:59 Assessment/Plan Assessment/Plan Chief Complaint/Hosp Course ID PROGRESS NOTE TOTAL ABX DAY # => Vanco PO 24H INTERVAL SUMMARY * Awake, VSS, NAD, (+)Diarrhea => Stool (+)C.Diff * Family is concerned because pt blood glucose 73 on finger stick -- she is not on IV insulin, on po Januvia -- I deferred famly questions to discuss with primary care vs supervisor post wave -- they desire to engage me in lengthy discussion about normal vs abnormal sugars and their son who is a DMT1 who gets sick when sugars are <100. * Chart reviewed PHYSICAL EXAMINATION: GENERAL: 86 yo F HEENT: Unremarkable NECK: Supple, trachea midline. CHEST: Rise symmetrical without dyspnea HEART: RRR ABDOMEN: Soft EXTREMITIES: Warm ID ASSESSMENT: 86 yo F 1. Status post Escherichia coli extended-spectrum beta-lactamase urinary tract infection, completed treatment with cefepime for 7 days. 2. Clostridium difficile colitis. 3. History of urostomy. 4. Diabetes. 5. Hypertension. INVASIVES: * CURRENT ABX: Vanco PO for C.Diff Colitis s/p Cefepime x 7 days ID RECOMMENDATIONS: CONTINUE Current ABX Probiotics onboard Defer families concerns about blood sugars to primary care vs endo . . Problems: Consultation Date/Type/Reason Admit Date/Time Sep 18, 2016 at 12:23 Initial Consult Date Type of Consultation: ID Exam/Review of Systems Vital Signs Vitals Vital Signs Date Time Temp Pulse Resp B/P Pulse Ox O2 Delivery O2 Flow Rate FiO2 09/27/16 07:44 98.9 83 18 140/64 98 Intake and Output 09/26/16 09/26/16 09/27/16 15:00 23:00 07:00 Intake Total 720 ml 1557.2727 ml Output Total 300 ml Balance 720 ml 1257.2727 ml Results Result Diagram: 09/27/16 0500 09/27/16 0500 Results 24 hrs Laboratory Tests Test 09/26/16 17:10 09/26/16 22:33 09/27/16 05:00 09/27/16 07:45 Bedside Glucose 92 83 76 Alanine Aminotransferase (ALT/SGPT) 21 Albumin 2.5 L Albumin/Globulin Ratio 0.92 Alkaline Phosphatase 115 Anion Gap 14 Aspartate Amino Transf (AST/SGOT) 14 L Basophils # 0.0 Basophils % 0.3 Blood Morphology Comment Blood Urea Nitrogen 15 Calcium Level 8.1 L Carbon Dioxide Level 24 Chloride Level 101 Creatinine 1.22 H Direct Bilirubin 0.00 Eosinophils # 0.5 Eosinophils % 4.2 Globulin 2.70 Glucose Level 84 Hematocrit 31.5 L Hemoglobin 10.4 L Indirect Bilirubin 0.1 Lymphocytes # 2.1 Lymphocytes % 16.8 Magnesium Level 1.9 Mean Corpuscular Hemoglobin 28.5 L Mean Corpuscular Hemoglobin Concent 33.1 Mean Corpuscular Volume 86.3 Mean Platelet Volume 8.1 Monocytes # 0.9 Monocytes % 7.5 Neutrophils # 9.0 H Neutrophils % 71.2 Nucleated Red Blood Cells # 0.0 Nucleated Red Blood Cells % 0.0 Phosphorus Level 3.5 # Platelet Count 229 Potassium Level 4.5 Red Blood Count 3.65 L Red Cell Distribution Width 16.5 H Sodium Level 134 L Total Bilirubin 0.1 L Total Protein 5.2 L White Blood Count 12.6 H Test 09/27/16 12:13 Bedside Glucose 84 Medications Medications Current Medications Ondansetron HCl (Zofran Inj) 4 mg Q6H PRN IV NAUSEA AND/OR VOMITING; Start 09/18 at 14:00 Acetaminophen (Tylenol Tab) 650 mg Q6H PRN PO PAIN LEVEL 1-3 OR FEVER Last administered on 09/22/16 22:20; Admin Dose 650 MG; Start 09/18/16 at 14:00 Pantoprazole (Protonix Tab) 40 mg DAILY@06 PO Last administered on 09/27/16 06 :21; Admin Dose 40 MG; Start 09/19/16 at 06:00 Heparin Sodium (Porcine) (Heparin (5000 Units/0.5 ml)) 5,000 unit Q12 SC Last administered on 09/27/16 09:36; Admin Dose 5,000 UNIT; Start 09/18/16 at 21:00 Tramadol HCl (Ultram) 50 mg BID PRN PO pain Last administered on 09/26/16 05: 10; Admin Dose 50 MG; Start 09/18/16 at 14:00 Lorazepam (Ativan) 0.5 mg BID PRN PO ANXIETY Last administered on 09/24/16 23: 45; Admin Dose 0.5 MG; Start 09/18/16 at 14:00 Cholecalciferol (Vitamin D) 1,000 unit DAILY PO Last administered on 09/27/16 09:22; Admin Dose 1,000 UNIT; Start 09/19/16 at 09:00 Loratadine (Claritin) 10 mg DAILY PO Last administered on 09/27/16 09:23; Admin Dose 10 MG; Start 09/19/16 at 09:00 Metoprolol Tartrate (Lopressor) 50 mg BID PO Last administered on 09/27/16 09: 23; Admin Dose 50 MG; Start 09/18/16 at 21:00 Sertraline HCl (Zoloft) 50 mg DAILY PO Last administered on 09/27/16 09:22; Admin Dose 50 MG; Start 09/19/16 at 09:00 Diagnostic Test (Pha) (Accucheck) 1 ea 02 XX ; Start 09/19/16 at 02:00 Miscellaneous Information 1 ea NOTE XX ; Start 09/18/16 at 14:00 Glucose (Glutose) 15 gm Q15M PRN PO DECREASED GLUCOSE; Start 09/18/16 at 14:00 Glucose (Glutose) 22.5 gm Q15M PRN PO DECREASED GLUCOSE; Start 09/18/16 at 14:00 Dextrose (D50w Syringe) 25 ml Q15M PRN IV DECREASED GLUCOSE; Start 09/18/16 at 14:00 Dextrose (D50w Syringe) 50 ml Q15M PRN IV DECREASED GLUCOSE; Start 09/18/16 at 14:00 Glucagon (Glucagen) 1 mg Q15M PRN IM DECREASED GLUCOSE; Start 09/18/16 at 14:00 Glucose (Glutose) 15 gm Q15M PRN BUCCAL DECREASED GLUCOSE; Start 09/18/16 at 14: 00 Calcitriol (Rocaltrol) 0.25 mcg DAILY PO Last administered on 09/27/16 09:22; Admin Dose 0.25 MCG; Start 09/19/16 at 10:00 Nystatin (Nystatin Powder) 1 applic BID TOP Last administered on 09/27/16 09: 24; Admin Dose 1 APPLIC; Start 09/19/16 at 21:00 Levothyroxine Sodium (Synthroid) 75 mcg DAILY@06 PO Last administered on 06:21; Admin Dose 75 MCG; Start 09/21/16 at 06:00 Sodium Bicarbonate (Sodium Bicarbonate Tab) 650 mg TID PO Last administered on 09/27/16 12:07; Admin Dose 650 MG; Start 09/22/16 at 09:00 Vancomycin HCl (Vancomycin Oral Syringe) 250 mg Q6 PO Last administered on 09/27 12:20; Admin Dose 250 MG; Start 09/24/16 at 12:00 Lactobacillus Acidoph/ Bulgaricus 1 tab 1 tab TID PO Last administered on 12:07; Admin Dose 1 TAB; Start 09/24/16 at 13:00 Potassium Chloride/ Potassium Phosphate/Sodium Chloride (KCl/K Phos (Meq)/1/2 NS ) 1,007.2727 ml @ 60 mls/hr [id number] IV Last administered on 09/27/16 14:58; Admin Dose 60 MLS/HR; Start 09/26/16 at 12:00 Multivitamins/ Minerals (Theragran-M) 1 tab DAILY PO Last administered on 09:23; Admin Dose 1 TAB; Start 09/26/16 at 10:00 ZHANNA KIRBY NP Sep 27, 2016 17:00
--- NOTE | 2016-09-27 17:39 | PN ---
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 Exam/Review of Systems Vital Signs Vitals Vital Signs Date Time Temp Pulse Resp B/P Pulse Ox O2 Delivery O2 Flow Rate FiO2 09/27/16 07:44 98.9 83 18 140/64 98 Intake and Output 09/26/16 09/26/16 09/27/16 15:00 23:00 07:00 Intake Total 720 ml 1557.2727 ml Output Total 300 ml Balance 720 ml 1257.2727 ml Exam Constitutional: well developed Psych: confusion Neck: supple Respiratory: clear to auscultation Cardiovascular: regular rate and rhythm Gastrointestinal: soft Musculoskeletal: nl extremities to inspection Extremities: normal pulses Results POC glucose and labs reviewed Result Diagram: 09/27/16 0500 09/27/16 0500 Results 24 hrs Laboratory Tests Test 09/26/16 22:33 09/27/16 05:00 09/27/16 07:45 09/27/16 12:13 Bedside Glucose 83 76 84 Alanine Aminotransferase (ALT/SGPT) 21 Albumin 2.5 L Albumin/Globulin Ratio 0.92 Alkaline Phosphatase 115 Anion Gap 14 Aspartate Amino Transf (AST/SGOT) 14 L Basophils # 0.0 Basophils % 0.3 Blood Morphology Comment Blood Urea Nitrogen 15 Calcium Level 8.1 L Carbon Dioxide Level 24 Chloride Level 101 Creatinine 1.22 H Direct Bilirubin 0.00 Eosinophils # 0.5 Eosinophils % 4.2 Globulin 2.70 Glucose Level 84 Hematocrit 31.5 L Hemoglobin 10.4 L Indirect Bilirubin 0.1 Lymphocytes # 2.1 Lymphocytes % 16.8 Magnesium Level 1.9 Mean Corpuscular Hemoglobin 28.5 L Mean Corpuscular Hemoglobin Concent 33.1 Mean Corpuscular Volume 86.3 Mean Platelet Volume 8.1 Monocytes # 0.9 Monocytes % 7.5 Neutrophils # 9.0 H Neutrophils % 71.2 Nucleated Red Blood Cells # 0.0 Nucleated Red Blood Cells % 0.0 Phosphorus Level 3.5 # Platelet Count 229 Potassium Level 4.5 Red Blood Count 3.65 L Red Cell Distribution Width 16.5 H Sodium Level 134 L Total Bilirubin 0.1 L Total Protein 5.2 L White Blood Count 12.6 H Medications Medications Current Medications Ondansetron HCl (Zofran Inj) 4 mg Q6H PRN IV NAUSEA AND/OR VOMITING; Start 09/18 at 14:00 Acetaminophen (Tylenol Tab) 650 mg Q6H PRN PO PAIN LEVEL 1-3 OR FEVER Last administered on 09/22/16 22:20; Admin Dose 650 MG; Start 09/18/16 at 14:00 Pantoprazole (Protonix Tab) 40 mg DAILY@06 PO Last administered on 09/27/16 06 :21; Admin Dose 40 MG; Start 09/19/16 at 06:00 Heparin Sodium (Porcine) (Heparin (5000 Units/0.5 ml)) 5,000 unit Q12 SC Last administered on 09/27/16 09:36; Admin Dose 5,000 UNIT; Start 09/18/16 at 21:00 Tramadol HCl (Ultram) 50 mg BID PRN PO pain Last administered on 09/26/16 05: 10; Admin Dose 50 MG; Start 09/18/16 at 14:00 Lorazepam (Ativan) 0.5 mg BID PRN PO ANXIETY Last administered on 09/24/16 23: 45; Admin Dose 0.5 MG; Start 09/18/16 at 14:00 Cholecalciferol (Vitamin D) 1,000 unit DAILY PO Last administered on 09/27/16 09:22; Admin Dose 1,000 UNIT; Start 09/19/16 at 09:00 Loratadine (Claritin) 10 mg DAILY PO Last administered on 09/27/16 09:23; Admin Dose 10 MG; Start 09/19/16 at 09:00 Metoprolol Tartrate (Lopressor) 50 mg BID PO Last administered on 09/27/16 09: 23; Admin Dose 50 MG; Start 09/18/16 at 21:00 Sertraline HCl (Zoloft) 50 mg DAILY PO Last administered on 09/27/16 09:22; Admin Dose 50 MG; Start 09/19/16 at 09:00 Diagnostic Test (Pha) (Accucheck) 1 ea 02 XX ; Start 09/19/16 at 02:00 Miscellaneous Information 1 ea NOTE XX ; Start 09/18/16 at 14:00 Glucose (Glutose) 15 gm Q15M PRN PO DECREASED GLUCOSE; Start 09/18/16 at 14:00 Glucose (Glutose) 22.5 gm Q15M PRN PO DECREASED GLUCOSE; Start 09/18/16 at 14:00 Dextrose (D50w Syringe) 25 ml Q15M PRN IV DECREASED GLUCOSE; Start 09/18/16 at 14:00 Dextrose (D50w Syringe) 50 ml Q15M PRN IV DECREASED GLUCOSE; Start 09/18/16 at 14:00 Glucagon (Glucagen) 1 mg Q15M PRN IM DECREASED GLUCOSE; Start 09/18/16 at 14:00 Glucose (Glutose) 15 gm Q15M PRN BUCCAL DECREASED GLUCOSE; Start 09/18/16 at 14: 00 Calcitriol (Rocaltrol) 0.25 mcg DAILY PO Last administered on 09/27/16 09:22; Admin Dose 0.25 MCG; Start 09/19/16 at 10:00 Nystatin (Nystatin Powder) 1 applic BID TOP Last administered on 09/27/16 09: 24; Admin Dose 1 APPLIC; Start 09/19/16 at 21:00 Levothyroxine Sodium (Synthroid) 75 mcg DAILY@06 PO Last administered on 06:21; Admin Dose 75 MCG; Start 09/21/16 at 06:00 Sodium Bicarbonate (Sodium Bicarbonate Tab) 650 mg TID PO Last administered on 09/27/16 12:07; Admin Dose 650 MG; Start 09/22/16 at 09:00 Vancomycin HCl (Vancomycin Oral Syringe) 250 mg Q6 PO Last administered on 09/27 12:20; Admin Dose 250 MG; Start 09/24/16 at 12:00 Lactobacillus Acidoph/ Bulgaricus 1 tab 1 tab TID PO Last administered on 12:07; Admin Dose 1 TAB; Start 09/24/16 at 13:00 Potassium Chloride/ Potassium Phosphate/Sodium Chloride (KCl/K Phos (Meq)/1/2 NS ) 1,007.2727 ml @ 60 mls/hr [id number] IV Last administered on 09/27/16 14:58; Admin Dose 60 MLS/HR; Start 09/26/16 at 12:00 Multivitamins/ Minerals (Theragran-M) 1 tab DAILY PO Last administered on 09:23; Admin Dose 1 TAB; Start 09/26/16 at 10:00 CHRISTINE BELLO MD Sep 27, 2016 17:39
[2016-09-27 19:21] VITALS: BP 135/63; RESP 20
[2016-09-28] MEDS: VANCOMYCIN HCL 250 MG/5ML POSYG PO SCH ×4 (00:40→17:31)
[2016-09-28] MEDS: ACCUCHECK XX SCH (02:00)
[2016-09-28] MEDS: SOD CHLORIDE 0.45% IV SCH ×3 (02:48→16:12)
[2016-09-28] MEDS: POTASSIUM CHLORIDE IV SCH ×3 (02:48→16:12)
[2016-09-28] MEDS: POTASSIUM PHOSPHATE IV SCH ×3 (02:48→16:12)
[2016-09-28] MEDS: PANTOPRAZOLE (EC) 40 MG TAB PO SCH (05:45)
[2016-09-28] MEDS: LEVOTHYROXINE 75 MCG TAB PO SCH (05:45)
[2016-09-28 08:00] VITALS: BP 149/66; PULSE 76; RESP 18
[2016-09-28] MEDS: CALCIUM ACETATE 667 MG CAP PO SCH ×3 (08:15→17:31)
[2016-09-28] MEDS: NA BICARBONATE 650 MG TAB PO SCH ×3 (09:00→21:36)
[2016-09-28] MEDS: NYSTATIN 30 GM POWDER BTL TOP SCH ×3 (09:00→21:37)
[2016-09-28] MEDS: LACTOBACILLUS CHEW TAB PO SCH ×3 (09:00→21:36)
[2016-09-28] MEDS: CHOLECALCIFEROL 1,000 UNIT TAB PO SCH (09:00)
[2016-09-28] MEDS: LORATADINE 10 MG TAB PO SCH (09:00)
[2016-09-28] MEDS: SERTRALINE 50 MG TAB PO SCH ×2 (09:00→10:13)
[2016-09-28] MEDS: METOPROLOL 50 MG TAB PO SCH ×2 (09:00→21:37)
[2016-09-28] MEDS: MULTIVITAMINS/MINERALS TAB PO SCH (09:00)
[2016-09-28] MEDS: HEPARIN 5,000 UNIT/0.5 ML SYG SC SCH ×3 (09:00→21:53)
[2016-09-28] MEDS: CALCITRIOL 0.25 MCG CAP PO SCH (09:00)
--- NOTE | 2016-09-28 09:43 | PN ---
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 Denies pain. Just wants to be left alone. Exam/Review of Systems Vital Signs Vitals Vital Signs Date Time Temp Pulse Resp B/P Pulse Ox O2 Delivery O2 Flow Rate FiO2 09/27/16 19:21 98.6 74 20 135/63 97 Intake and Output 09/27/16 09/27/16 09/28/16 15:00 23:00 07:00 Intake Total 350 ml 760 ml 1207.2727 ml Output Total 3 ml 3 ml Balance 350 ml 757 ml 1204.2727 ml Exam Refusing exam Results POC glucose and labs Result Diagram: 09/27/16 0500 09/27/16 0500 Results 24 hrs Laboratory Tests Test 09/27/16 12:13 09/27/16 17:37 09/27/16 21:14 09/28/16 08:34 Bedside Glucose 84 78 79 74 Medications Medications Current Medications Ondansetron HCl (Zofran Inj) 4 mg Q6H PRN IV NAUSEA AND/OR VOMITING; Start 09/18 at 14:00 Acetaminophen (Tylenol Tab) 650 mg Q6H PRN PO PAIN LEVEL 1-3 OR FEVER Last administered on 09/22/16 22:20; Admin Dose 650 MG; Start 09/18/16 at 14:00 Pantoprazole (Protonix Tab) 40 mg DAILY@06 PO Last administered on 09/28/16 05 :45; Admin Dose 40 MG; Start 09/19/16 at 06:00 Heparin Sodium (Porcine) (Heparin (5000 Units/0.5 ml)) 5,000 unit Q12 SC Last administered on 09/27/16 21:30; Admin Dose 5,000 UNIT; Start 09/18/16 at 21:00 Tramadol HCl (Ultram) 50 mg BID PRN PO pain Last administered on 09/26/16 05: 10; Admin Dose 50 MG; Start 09/18/16 at 14:00 Lorazepam (Ativan) 0.5 mg BID PRN PO ANXIETY Last administered on 09/24/16 23: 45; Admin Dose 0.5 MG; Start 09/18/16 at 14:00 Cholecalciferol (Vitamin D) 1,000 unit DAILY PO Last administered on 09/27/16 09:22; Admin Dose 1,000 UNIT; Start 09/19/16 at 09:00 Loratadine (Claritin) 10 mg DAILY PO Last administered on 09/27/16 09:23; Admin Dose 10 MG; Start 09/19/16 at 09:00 Metoprolol Tartrate (Lopressor) 50 mg BID PO Last administered on 09/27/16 21: 13; Admin Dose 50 MG; Start 09/18/16 at 21:00 Sertraline HCl (Zoloft) 50 mg DAILY PO Last administered on 09/27/16 09:22; Admin Dose 50 MG; Start 09/19/16 at 09:00 Diagnostic Test (Pha) (Accucheck) 1 ea 02 XX ; Start 09/19/16 at 02:00 Miscellaneous Information 1 ea NOTE XX ; Start 09/18/16 at 14:00 Glucose (Glutose) 15 gm Q15M PRN PO DECREASED GLUCOSE; Start 09/18/16 at 14:00 Glucose (Glutose) 22.5 gm Q15M PRN PO DECREASED GLUCOSE; Start 09/18/16 at 14:00 Dextrose (D50w Syringe) 25 ml Q15M PRN IV DECREASED GLUCOSE; Start 09/18/16 at 14:00 Dextrose (D50w Syringe) 50 ml Q15M PRN IV DECREASED GLUCOSE; Start 09/18/16 at 14:00 Glucagon (Glucagen) 1 mg Q15M PRN IM DECREASED GLUCOSE; Start 09/18/16 at 14:00 Glucose (Glutose) 15 gm Q15M PRN BUCCAL DECREASED GLUCOSE; Start 09/18/16 at 14: 00 Calcitriol (Rocaltrol) 0.25 mcg DAILY PO Last administered on 09/27/16 09:22; Admin Dose 0.25 MCG; Start 09/19/16 at 10:00 Nystatin (Nystatin Powder) 1 applic BID TOP Last administered on 09/27/16 21: 15; Admin Dose 1 APPLIC; Start 09/19/16 at 21:00 Levothyroxine Sodium (Synthroid) 75 mcg DAILY@06 PO Last administered on 05:45; Admin Dose 75 MCG; Start 09/21/16 at 06:00 Sodium Bicarbonate (Sodium Bicarbonate Tab) 650 mg TID PO Last administered on 09/27/16 21:09; Admin Dose 650 MG; Start 09/22/16 at 09:00 Vancomycin HCl (Vancomycin Oral Syringe) 250 mg Q6 PO Last administered on 09/28 05:45; Admin Dose 250 MG; Start 09/24/16 at 12:00 Lactobacillus Acidoph/ Bulgaricus 1 tab 1 tab TID PO Last administered on 21:09; Admin Dose 1 TAB; Start 09/24/16 at 13:00 Potassium Chloride/ Potassium Phosphate/Sodium Chloride (KCl/K Phos (Meq)/1/2 NS ) 1,007.2727 ml @ 60 mls/hr [id number] IV Last administered on 09/28/16 04:30; Admin Dose 60 MLS/HR; Start 09/26/16 at 12:00 Multivitamins/ Minerals (Theragran-M) 1 tab DAILY PO Last administered on 09:23; Admin Dose 1 TAB; Start 09/26/16 at 10:00 CHRISTINE BELLO MD Sep 28, 2016 09:42
[2016-09-28] MEDS: ESCITALOPRAM 10 MG TAB PO SCH (10:20)
--- NOTE | 2016-09-28 10:45 | PN ---
Date/Time of Note Date/Time of Note DATE: 09/28/16 TIME: 10:42 Assessment/Plan VTE Prophylaxis VTE Prophylaxis Intervention: other Lines/Catheters IV Catheter Type (from Nrsg): Peripheral IV Urinary Cath still in place: No (RIGHT UROSTOMY ) Assessment/Plan Assessment/Plan 1. Anxeity/Depression, rev with RN, family aware, changed ativan to IV, will need op psych intervention 2. C diff colitis being treated. 3. Renal insuff, await labs 4. DM, sugars rev, will change accucheck to ac meals only Subjective 24 Hr Interval Summary Respiratory: No cough, No shortness of breath Cardiovascular: No chest pain Gastrointestinal: No diarrhea, No pain Psychological: other (crying most of the morning and does not want to eat ) Exam/Review of Systems Vital Signs Vitals Vital Signs Date Time Temp Pulse Resp B/P Pulse Ox O2 Delivery O2 Flow Rate FiO2 09/27/16 19:21 98.6 74 20 135/63 97 Intake and Output 09/27/16 09/27/16 09/28/16 14:59 22:59 06:59 Intake Total 350 ml 760 ml 1207.2727 ml Output Total 3 ml 3 ml Balance 350 ml 757 ml 1204.2727 ml Exam Neck: No jvd Respiratory: clear to auscultation Cardiovascular: regular rate and rhythm Gastrointestinal: soft Extremities: No edema Results Result Diagram: 09/27/16 0500 09/27/16 0500 Results 24 hrs Laboratory Tests Test 09/27/16 12:13 09/27/16 17:37 09/27/16 21:14 09/28/16 08:34 Bedside Glucose 84 78 79 74 Medications Medications Current Medications Ondansetron HCl (Zofran Inj) 4 mg Q6H PRN IV NAUSEA AND/OR VOMITING; Start 09/18 at 14:00 Acetaminophen (Tylenol Tab) 650 mg Q6H PRN PO PAIN LEVEL 1-3 OR FEVER Last administered on 09/22/16 22:20; Admin Dose 650 MG; Start 09/18/16 at 14:00 Pantoprazole (Protonix Tab) 40 mg DAILY@06 PO Last administered on 09/28/16 05 :45; Admin Dose 40 MG; Start 09/19/16 at 06:00 Heparin Sodium (Porcine) (Heparin (5000 Units/0.5 ml)) 5,000 unit Q12 SC Last administered on 09/27/16 21:30; Admin Dose 5,000 UNIT; Start 09/18/16 at 21:00 Tramadol HCl (Ultram) 50 mg BID PRN PO pain Last administered on 09/26/16 05: 10; Admin Dose 50 MG; Start 09/18/16 at 14:00 Lorazepam (Ativan) 0.5 mg BID PRN PO ANXIETY Last administered on 09/24/16 23: 45; Admin Dose 0.5 MG; Start 09/18/16 at 14:00 Cholecalciferol (Vitamin D) 1,000 unit DAILY PO Last administered on 09/27/16 09:22; Admin Dose 1,000 UNIT; Start 09/19/16 at 09:00 Loratadine (Claritin) 10 mg DAILY PO Last administered on 09/27/16 09:23; Admin Dose 10 MG; Start 09/19/16 at 09:00 Metoprolol Tartrate (Lopressor) 50 mg BID PO Last administered on 09/27/16 21: 13; Admin Dose 50 MG; Start 09/18/16 at 21:00 Sertraline HCl (Zoloft) 50 mg DAILY PO Last administered on 09/28/16 10:13; Admin Dose 50 MG; Start 09/19/16 at 09:00 Diagnostic Test (Pha) (Accucheck) 1 ea 02 XX ; Start 09/19/16 at 02:00 Miscellaneous Information 1 ea NOTE XX ; Start 09/18/16 at 14:00 Glucose (Glutose) 15 gm Q15M PRN PO DECREASED GLUCOSE; Start 09/18/16 at 14:00 Glucose (Glutose) 22.5 gm Q15M PRN PO DECREASED GLUCOSE; Start 09/18/16 at 14:00 Dextrose (D50w Syringe) 25 ml Q15M PRN IV DECREASED GLUCOSE; Start 09/18/16 at 14:00 Dextrose (D50w Syringe) 50 ml Q15M PRN IV DECREASED GLUCOSE; Start 09/18/16 at 14:00 Glucagon (Glucagen) 1 mg Q15M PRN IM DECREASED GLUCOSE; Start 09/18/16 at 14:00 Glucose (Glutose) 15 gm Q15M PRN BUCCAL DECREASED GLUCOSE; Start 09/18/16 at 14: 00 Calcitriol (Rocaltrol) 0.25 mcg DAILY PO Last administered on 09/27/16 09:22; Admin Dose 0.25 MCG; Start 09/19/16 at 10:00 Nystatin (Nystatin Powder) 1 applic BID TOP Last administered on 09/27/16 21: 15; Admin Dose 1 APPLIC; Start 09/19/16 at 21:00 Levothyroxine Sodium (Synthroid) 75 mcg DAILY@06 PO Last administered on 05:45; Admin Dose 75 MCG; Start 09/21/16 at 06:00 Sodium Bicarbonate (Sodium Bicarbonate Tab) 650 mg TID PO Last administered on 09/27/16 21:09; Admin Dose 650 MG; Start 09/22/16 at 09:00 Vancomycin HCl (Vancomycin Oral Syringe) 250 mg Q6 PO Last administered on 09/28 05:45; Admin Dose 250 MG; Start 09/24/16 at 12:00 Lactobacillus Acidoph/ Bulgaricus 1 tab 1 tab TID PO Last administered on 21:09; Admin Dose 1 TAB; Start 09/24/16 at 13:00 Potassium Chloride/ Potassium Phosphate/Sodium Chloride (KCl/K Phos (Meq)/1/2 NS ) 1,007.2727 ml @ 60 mls/hr [id number] IV Last administered on 09/28/16 04:30; Admin Dose 60 MLS/HR; Start 09/26/16 at 12:00 Multivitamins/ Minerals (Theragran-M) 1 tab DAILY PO Last administered on 09:23; Admin Dose 1 TAB; Start 09/26/16 at 10:00 Escitalopram Oxalate (Lexapro) 10 mg DAILY PO Last administered on 09/28/16 10 :20; Admin Dose 10 MG; Start 09/28/16 at 10:30 DESTINEE FERRO MD Sep 28, 2016 10:44
[2016-09-28] MEDS ORDERED: LORAZEPAM 2 MG INJ IV PRN (11:00)
[2016-09-28] MEDS: INSULIN ASPART [NOVOLOG] 3 ML PEN SC SCH ×2 (12:00→17:33)
--- NOTE | 2016-09-28 14:28 | CONS ---
Date/Time of Note Date/Time of Note DATE: 09/28/16 TIME: 14:24 Assessment/Plan Assessment/Plan Chief Complaint/Hosp Course ID PROGRESS NOTE TOTAL ABX DAY #5 => Vanco PO 24H INTERVAL SUMMARY * (+)Diarrhea persisting w/5 stools this am => Stool (+)C.Diff * Awake, alert, tries to get oob ?confused, no fevers, VSS, NAD PHYSICAL EXAMINATION: GENERAL: 86 yo F HEENT: Unremarkable NECK: Supple, trachea midline. CHEST: Rise symmetrical without dyspnea HEART: RRR ABDOMEN: Soft EXTREMITIES: Warm ID ASSESSMENT: 86 yo F 1. Status post Escherichia coli extended-spectrum beta-lactamase urinary tract infection, completed treatment with cefepime for 7 days. 2. Clostridium difficile colitis. 3. History of urostomy. 4. Diabetes. 5. Hypertension. INVASIVES: * CURRENT ABX: Vanco PO #5 s/p Cefepime x 7 days ID RECOMMENDATIONS: CONTINUE Vanco PO for C.Diff Colitis Diarrhea persisting - may consider addition of low dose Flagyl 25omg PO TID for adjunctive Rx to control diarrhea Probiotics onboard . . Problems: Consultation Date/Type/Reason Admit Date/Time Sep 18, 2016 at 12:23 Type of Consultation: ID Exam/Review of Systems Vital Signs Vitals Vital Signs Date Time Temp Pulse Resp B/P Pulse Ox O2 Delivery O2 Flow Rate FiO2 09/28/16 08:00 97.9 76 18 149/66 95 Room Air Intake and Output 09/27/16 09/27/16 09/28/16 15:00 23:00 07:00 Intake Total 350 ml 760 ml 1207.2727 ml Output Total 3 ml 3 ml Balance 350 ml 757 ml 1204.2727 ml Results Result Diagram: 09/27/16 0500 09/27/16 0500 Results 24 hrs Laboratory Tests Test 09/27/16 17:37 09/27/16 21:14 09/28/16 08:34 09/28/16 12:24 Bedside Glucose 78 79 74 64 L Test 09/28/16 12:42 Bedside Glucose 80 Medications Medications Current Medications Ondansetron HCl (Zofran Inj) 4 mg Q6H PRN IV NAUSEA AND/OR VOMITING; Start 09/18 at 14:00 Acetaminophen (Tylenol Tab) 650 mg Q6H PRN PO PAIN LEVEL 1-3 OR FEVER Last administered on 09/22/16 22:20; Admin Dose 650 MG; Start 09/18/16 at 14:00 Pantoprazole (Protonix Tab) 40 mg DAILY@06 PO Last administered on 09/28/16 05 :45; Admin Dose 40 MG; Start 09/19/16 at 06:00 Heparin Sodium (Porcine) (Heparin (5000 Units/0.5 ml)) 5,000 unit Q12 SC Last administered on 09/28/16 12:27; Admin Dose 5,000 UNIT; Start 09/18/16 at 21:00 Tramadol HCl (Ultram) 50 mg BID PRN PO pain Last administered on 09/26/16 05: 10; Admin Dose 50 MG; Start 09/18/16 at 14:00 Cholecalciferol (Vitamin D) 1,000 unit DAILY PO Last administered on 09/27/16 09:22; Admin Dose 1,000 UNIT; Start 09/19/16 at 09:00 Loratadine (Claritin) 10 mg DAILY PO Last administered on 09/27/16 09:23; Admin Dose 10 MG; Start 09/19/16 at 09:00 Metoprolol Tartrate (Lopressor) 50 mg BID PO Last administered on 09/27/16 21: 13; Admin Dose 50 MG; Start 09/18/16 at 21:00 Sertraline HCl (Zoloft) 50 mg DAILY PO Last administered on 09/28/16 10:13; Admin Dose 50 MG; Start 09/19/16 at 09:00 Diagnostic Test (Pha) (Accucheck) 1 ea 02 XX ; Start 09/19/16 at 02:00 Miscellaneous Information 1 ea NOTE XX ; Start 09/18/16 at 14:00 Glucose (Glutose) 15 gm Q15M PRN PO DECREASED GLUCOSE; Start 09/18/16 at 14:00 Glucose (Glutose) 22.5 gm Q15M PRN PO DECREASED GLUCOSE; Start 09/18/16 at 14:00 Dextrose (D50w Syringe) 25 ml Q15M PRN IV DECREASED GLUCOSE; Start 09/18/16 at 14:00 Dextrose (D50w Syringe) 50 ml Q15M PRN IV DECREASED GLUCOSE; Start 09/18/16 at 14:00 Glucagon (Glucagen) 1 mg Q15M PRN IM DECREASED GLUCOSE; Start 09/18/16 at 14:00 Glucose (Glutose) 15 gm Q15M PRN BUCCAL DECREASED GLUCOSE; Start 09/18/16 at 14: 00 Calcitriol (Rocaltrol) 0.25 mcg DAILY PO Last administered on 09/27/16 09:22; Admin Dose 0.25 MCG; Start 09/19/16 at 10:00 Nystatin (Nystatin Powder) 1 applic BID TOP Last administered on 09/28/16 12: 30; Admin Dose 1 APPLIC; Start 09/19/16 at 21:00 Levothyroxine Sodium (Synthroid) 75 mcg DAILY@06 PO Last administered on 05:45; Admin Dose 75 MCG; Start 09/21/16 at 06:00 Sodium Bicarbonate (Sodium Bicarbonate Tab) 650 mg TID PO Last administered on 09/28/16 12:32; Admin Dose 650 MG; Start 09/22/16 at 09:00 Vancomycin HCl (Vancomycin Oral Syringe) 250 mg Q6 PO Last administered on 09/28 12:26; Admin Dose 250 MG; Start 09/24/16 at 12:00 Lactobacillus Acidoph/ Bulgaricus 1 tab 1 tab TID PO Last administered on 12:32; Admin Dose 1 TAB; Start 09/24/16 at 13:00 Potassium Chloride/ Potassium Phosphate/Sodium Chloride (KCl/K Phos (Meq)/1/2 NS ) 1,007.2727 ml @ 60 mls/hr [id number] IV Last administered on 09/28/16 04:30; Admin Dose 60 MLS/HR; Start 09/26/16 at 12:00 Multivitamins/ Minerals (Theragran-M) 1 tab DAILY PO Last administered on 09:23; Admin Dose 1 TAB; Start 09/26/16 at 10:00 Escitalopram Oxalate (Lexapro) 10 mg DAILY PO Last administered on 09/28/16 10 :20; Admin Dose 10 MG; Start 09/28/16 at 10:30 Lorazepam (Ativan) 0.25 mg Q12 PRN IV ANXIETY; Start 09/28/16 at 11:00 ZHANNA KIRBY NP Sep 28, 2016 14:28
[2016-09-28 15:17] LABS: BASOPHILS % 0.2 % (0.0-2.0); EOSINOPHILS # 0.5 10^3/ul (0.0-0.5); EOSINOPHILS % 4.2 % (0.0-7.0); HEMATOCRIT 31.9 % (37.0-47.0); HEMOGLOBIN 10.4 g/dl (12.0-16.0); LYMPHOCYTES # 2.4 10^3/ul (0.8-2.9); LYMPHOCYTES % 18.7 % (15.0-51.0); MEAN CORPUSCULAR HGB CONC 32.7 g/dl (32.0-37.0); MEAN CORPUSCULAR VOLUME 85.4 fl (82.0-101.0); MEAN PLATELET VOLUME 7.8 fl (7.4-10.4); MONOCYTES % 7.7 % (0.0-11.0); NEUTROPHIL # 8.8 10^3/ul (1.6-7.5); NEUTROPHILS % 69.2 % (39.0-77.0); PLATELET COUNT 257 10^3/UL (140-440); RED BLOOD COUNT 3.73 10^6/ul (4.20-5.40); UNCORRECTED WBC 12.6 10^3/ul (4.8-10.8); WHITE BLOOD COUNT 12.6 10^3/ul (4.8-10.8)
[2016-09-28 15:20] LABS: CONDITION 1
[2016-09-28 15:21] LABS: LH ANALYZER COMMENTS 1
[2016-09-28 15:26] LABS: POTASSIUM 4.6 mmol/L (3.5-5.1)
[2016-09-28 15:28] LABS: CREATININE 1.34 mg/dl (0.44-1.00)
[2016-09-28 15:29] LABS: CALCIUM 8.3 mg/dl (8.4-10.2); PHOSPHORUS 3.9 mg/dl (2.5-4.9)
[2016-09-28 15:30] LABS: MAGNESIUM 1.7 mg/dl (1.7-2.5)
[2016-09-28 15:31] LABS: IRON 37 ug/dl (35-150)
[2016-09-28 15:57] LABS: TOTAL IRON BINDING CAPACITY 178 ug/dl (241-421)
[2016-09-28 16:23] LABS: THYROID STIMULATING HORMONE 0.744 MIU/L (0.465-4.680)
[2016-09-28 19:25] VITALS: BP 125/70; RESP 20
[2016-09-29] MEDS: VANCOMYCIN HCL 250 MG/5ML POSYG PO SCH ×5 (00:56→23:41)
[2016-09-29] MEDS: ACCUCHECK XX SCH (02:00)
[2016-09-29] MEDS: POTASSIUM CHLORIDE IV SCH ×2 (02:51→23:41)
[2016-09-29] MEDS: SOD CHLORIDE 0.45% IV SCH ×2 (02:51→23:41)
[2016-09-29] MEDS: POTASSIUM PHOSPHATE IV SCH ×2 (02:51→23:41)
[2016-09-29] MEDS: PANTOPRAZOLE (EC) 40 MG TAB PO SCH (06:20)
[2016-09-29] MEDS: LEVOTHYROXINE 75 MCG TAB PO SCH (06:20)
[2016-09-29] MEDS: INSULIN ASPART [NOVOLOG] 3 ML PEN SC SCH ×3 (08:00→17:45)
[2016-09-29 08:16] VITALS: BP 150/69; RESP 20
[2016-09-29] MEDS: ESCITALOPRAM 10 MG TAB PO SCH (09:20)
[2016-09-29] MEDS: CALCIUM ACETATE 667 MG CAP PO SCH ×3 (09:20→18:17)
[2016-09-29] MEDS: LORATADINE 10 MG TAB PO SCH (09:20)
[2016-09-29] MEDS: LACTOBACILLUS CHEW TAB PO SCH ×3 (09:20→21:58)
[2016-09-29] MEDS: METOPROLOL 50 MG TAB PO SCH ×2 (09:21→21:58)
[2016-09-29] MEDS: CALCITRIOL 0.25 MCG CAP PO SCH (09:21)
[2016-09-29] MEDS: SERTRALINE 50 MG TAB PO SCH (09:21)
[2016-09-29] MEDS: MULTIVITAMINS/MINERALS TAB PO SCH (09:21)
[2016-09-29] MEDS: NA BICARBONATE 650 MG TAB PO SCH ×3 (09:21→21:58)
[2016-09-29] MEDS: CHOLECALCIFEROL 1,000 UNIT TAB PO SCH (09:21)
[2016-09-29] MEDS: NYSTATIN 30 GM POWDER BTL TOP SCH ×2 (10:32→21:59)
[2016-09-29] MEDS: HEPARIN 5,000 UNIT/0.5 ML SYG SC SCH ×2 (10:51→22:16)
--- NOTE | 2016-09-29 11:24 | PN ---
Date/Time of Note Date/Time of Note DATE: 09/29/16 TIME: 11:22 Assessment/Plan VTE Prophylaxis VTE Prophylaxis Intervention: other Lines/Catheters IV Catheter Type (from Nrs): Peripheral IV Urinary Cath still in place: No Assessment/Plan Assessment/Plan 1. Agitation improved with Lorazepam, dose reduced 2. CKD stable 3. C diff being treated Subjective 24 Hr Interval Summary Respiratory: No shortness of breath Cardiovascular: No chest pain Gastrointestinal: no complaints Genitourinary: no complaints Neurologic: other (not agitated this am) Exam/Review of Systems Vital Signs Vitals Vital Signs Date Time Temp Pulse Resp B/P Pulse Ox O2 Delivery O2 Flow Rate FiO2 09/29/16 08:16 97.0 69 20 150/69 94 09/28/16 08:00 Room Air Intake and Output 09/28/16 09/28/16 09/29/16 15:00 23:00 07:00 Intake Total 1520 ml [id number] ml Output Total 550 ml 800 ml Balance 970 ml [id number] ml Exam Neck: No jvd Respiratory: clear to auscultation Cardiovascular: regular rate and rhythm Gastrointestinal: soft, No distended, No tender Neurological: other (lethargic but easily arroused), No focal weakness Results Result Diagram: 09/28/16 1500 09/28/16 1500 Results 24 hrs Laboratory Tests Test 09/28/16 12:24 09/28/16 12:42 09/28/16 15:00 09/28/16 17:32 Bedside Glucose 64 L 80 94 Anion Gap 14 Basophils # 0.0 Basophils % 0.2 Blood Morphology Comment Blood Urea Nitrogen 13 Calcium Level 8.3 L Carbon Dioxide Level 26 Chloride Level 101 Creatinine 1.34 H Eosinophils # 0.5 Eosinophils % 4.2 Ferritin 112.0 Glucose Level 98 Hematocrit 31.9 L Hemoglobin 10.4 L Iron Level 37 Lymphocytes # 2.4 Lymphocytes % 18.7 Magnesium Level 1.7 Mean Corpuscular Hemoglobin 28.0 L Mean Corpuscular Hemoglobin Concent 32.7 Mean Corpuscular Volume 85.4 Mean Platelet Volume 7.8 Monocytes # 1.0 H Monocytes % 7.7 Neutrophils # 8.8 H Neutrophils % 69.2 Nucleated Red Blood Cells # 0.0 Nucleated Red Blood Cells % 0.0 Percent Iron Saturation 21 L Phosphorus Level 3.9 Platelet Count 257 Potassium Level 4.6 Red Blood Count 3.73 L Red Cell Distribution Width 16.0 H Sodium Level 136 Thyroid Stimulating Hormone (TSH) 0.744 Total Iron Binding Capacity 178 L Vitamin B12 Level 734 White Blood Count 12.6 H Test 09/28/16 21:41 09/29/16 07:57 09/29/16 11:11 Bedside Glucose 103 75 81 Medications Medications Current Medications Ondansetron HCl (Zofran Inj) 4 mg Q6H PRN IV NAUSEA AND/OR VOMITING; Start 09/18 at 14:00 Acetaminophen (Tylenol Tab) 650 mg Q6H PRN PO PAIN LEVEL 1-3 OR FEVER Last administered on 09/22/16 22:20; Admin Dose 650 MG; Start 09/18/16 at 14:00 Pantoprazole (Protonix Tab) 40 mg DAILY@06 PO Last administered on 09/29/16 06 :20; Admin Dose 40 MG; Start 09/19/16 at 06:00 Heparin Sodium (Porcine) (Heparin (5000 Units/0.5 ml)) 5,000 unit Q12 SC Last administered on 09/29/16 10:51; Admin Dose 5,000 UNIT; Start 09/18/16 at 21:00 Tramadol HCl (Ultram) 50 mg BID PRN PO pain Last administered on 09/26/16 05: 10; Admin Dose 50 MG; Start 09/18/16 at 14:00 Cholecalciferol (Vitamin D) 1,000 unit DAILY PO Last administered on 09/29/16 09:21; Admin Dose 1,000 UNIT; Start 09/19/16 at 09:00 Loratadine (Claritin) 10 mg DAILY PO Last administered on 09/29/16 09:20; Admin Dose 10 MG; Start 09/19/16 at 09:00 Metoprolol Tartrate (Lopressor) 50 mg BID PO Last administered on 09/29/16 09: 21; Admin Dose 50 MG; Start 09/18/16 at 21:00 Sertraline HCl (Zoloft) 50 mg DAILY PO Last administered on 09/29/16 09:21; Admin Dose 50 MG; Start 09/19/16 at 09:00 Diagnostic Test (Pha) (Accucheck) 1 ea 02 XX ; Start 09/19/16 at 02:00 Miscellaneous Information 1 ea NOTE XX ; Start 09/18/16 at 14:00 Glucose (Glutose) 15 gm Q15M PRN PO DECREASED GLUCOSE; Start 09/18/16 at 14:00 Glucose (Glutose) 22.5 gm Q15M PRN PO DECREASED GLUCOSE; Start 09/18/16 at 14:00 Dextrose (D50w Syringe) 25 ml Q15M PRN IV DECREASED GLUCOSE; Start 09/18/16 at 14:00 Dextrose (D50w Syringe) 50 ml Q15M PRN IV DECREASED GLUCOSE; Start 09/18/16 at 14:00 Glucagon (Glucagen) 1 mg Q15M PRN IM DECREASED GLUCOSE; Start 09/18/16 at 14:00 Glucose (Glutose) 15 gm Q15M PRN BUCCAL DECREASED GLUCOSE; Start 09/18/16 at 14: 00 Calcitriol (Rocaltrol) 0.25 mcg DAILY PO Last administered on 09/29/16 09:21; Admin Dose 0.25 MCG; Start 09/19/16 at 10:00 Nystatin (Nystatin Powder) 1 applic BID TOP Last administered on 09/29/16 10: 32; Admin Dose 1 APPLIC; Start 09/19/16 at 21:00 Levothyroxine Sodium (Synthroid) 75 mcg DAILY@06 PO Last administered on 06:20; Admin Dose 75 MCG; Start 09/21/16 at 06:00 Sodium Bicarbonate (Sodium Bicarbonate Tab) 650 mg TID PO Last administered on 09/29/16 09:21; Admin Dose 650 MG; Start 09/22/16 at 09:00 Vancomycin HCl (Vancomycin Oral Syringe) 250 mg Q6 PO Last administered on 09/29 06:21; Admin Dose 250 MG; Start 09/24/16 at 12:00 Lactobacillus Acidoph/ Bulgaricus 1 tab 1 tab TID PO Last administered on 09:20; Admin Dose 1 TAB; Start 09/24/16 at 13:00 Potassium Chloride/ Potassium Phosphate/Sodium Chloride (KCl/K Phos (Meq)/1/2 NS ) 1,007.2727 ml @ 60 mls/hr [id number] IV Last administered on 09/29/16 02:51; Admin Dose 60 MLS/HR; Start 09/26/16 at 12:00 Multivitamins/ Minerals (Theragran-M) 1 tab DAILY PO Last administered on 09:21; Admin Dose 1 TAB; Start 09/26/16 at 10:00 Escitalopram Oxalate (Lexapro) 10 mg DAILY PO Last administered on 09/29/16 09 :20; Admin Dose 10 MG; Start 09/28/16 at 10:30 Lorazepam (Ativan) 0.25 mg Q12 PRN IV ANXIETY Last administered on 09/28/16 16 :13; Admin Dose 0.25 MG; Start 09/28/16 at 11:00 DESTINEE FERRO MD Sep 29, 2016 11:24
--- NOTE | 2016-09-29 16:56 | CONS ---
Date/Time of Note Date/Time of Note DATE: 09/29/16 TIME: 16:36 Assessment/Plan Assessment/Plan Chief Complaint/Hosp Course ID PROGRESS NOTE TOTAL ABX DAY #6 => Vanco PO 24H INTERVAL SUMMARY * Pt became more confused w/(+)Diarrhea persisting => Stool (+)C.Diff == Per spouse hx of C.Diff at [facility] was difficult to control * Repeat urine growing Enterococcus pecimen: [id number] Status: Resulted Libra: 09/27/16 Rcvd: Source: CATHETER U Sp Descrip: Microbiology URINE CULTURE Preliminary Organism 1 ENTEROCOCCUS SPECIES COLONY COUNT >100,000 CFU/ml PHYSICAL EXAMINATION: GENERAL: 86 yo F HEENT: Unremarkable NECK: Supple, trachea midline. CHEST: Rise symmetrical without dyspnea HEART: RRR ABDOMEN: Soft EXTREMITIES: Warm ID ASSESSMENT: 86 yo F 1. Status post Escherichia coli extended-spectrum beta-lactamase urinary tract infection, completed treatment with cefepime for 7 days. 2. Clostridium difficile colitis = Hx of recurrent/recalcitrant C.Diff prior admissions to [facility] 3. History of urostomy. 4. Diabetes. 5. Hypertension. INVASIVES: * CURRENT ABX: Vanco PO #6 + START DAPTO IV for concern VRE UTI s/p Cefepime x 7 days ID RECOMMENDATIONS: 1. START DAPTO IV for concern VRE UTI 2. CONTINUE Vanco PO for C.Diff Colitis + Add Flagy IV + Rifaximin x3 days * RATIONALE: Patient has history of recalcitrant C.Diff from [facility] prior -- diarrhea is out of control and she has a urine ostomy diversion that gets contaminated by the diarrhea -- she is confused from the new UTI. * GOAL is 3-Tx ABX to get the C.Diff under control -- if this does not work -- will try alternative such as Deficid (Fidaxomicin) *ABX changes discussed w/spouse in the room who expresses understanding and agreement. . . Problems: Consultation Date/Type/Reason Admit Date/Time Sep 18, 2016 at 12:23 Type of Consultation: ID Exam/Review of Systems Vital Signs Vitals Vital Signs Date Time Temp Pulse Resp B/P Pulse Ox O2 Delivery O2 Flow Rate FiO2 09/29/16 08:16 97.0 69 20 150/69 94 09/28/16 08:00 Room Air Intake and Output 09/28/16 09/28/16 09/29/16 15:00 23:00 07:00 Intake Total 1520 ml [id number] ml Output Total 550 ml 800 ml Balance 970 ml [id number] ml Results Result Diagram: 09/28/16 1500 09/28/16 1500 Results 24 hrs Laboratory Tests Test 09/28/16 17:32 09/28/16 21:41 09/29/16 07:57 09/29/16 11:11 Bedside Glucose 94 103 75 81 Medications Medications Current Medications Ondansetron HCl (Zofran Inj) 4 mg Q6H PRN IV NAUSEA AND/OR VOMITING; Start 09/18 at 14:00 Acetaminophen (Tylenol Tab) 650 mg Q6H PRN PO PAIN LEVEL 1-3 OR FEVER Last administered on 09/22/16 22:20; Admin Dose 650 MG; Start 09/18/16 at 14:00 Pantoprazole (Protonix Tab) 40 mg DAILY@06 PO Last administered on 09/29/16 06 :20; Admin Dose 40 MG; Start 09/19/16 at 06:00 Heparin Sodium (Porcine) (Heparin (5000 Units/0.5 ml)) 5,000 unit Q12 SC Last administered on 09/29/16 10:51; Admin Dose 5,000 UNIT; Start 09/18/16 at 21:00 Tramadol HCl (Ultram) 50 mg BID PRN PO pain Last administered on 09/26/16 05: 10; Admin Dose 50 MG; Start 09/18/16 at 14:00 Cholecalciferol (Vitamin D) 1,000 unit DAILY PO Last administered on 09/29/16 09:21; Admin Dose 1,000 UNIT; Start 09/19/16 at 09:00 Loratadine (Claritin) 10 mg DAILY PO Last administered on 09/29/16 09:20; Admin Dose 10 MG; Start 09/19/16 at 09:00 Metoprolol Tartrate (Lopressor) 50 mg BID PO Last administered on 09/29/16 09: 21; Admin Dose 50 MG; Start 09/18/16 at 21:00 Sertraline HCl (Zoloft) 50 mg DAILY PO Last administered on 09/29/16 09:21; Admin Dose 50 MG; Start 09/19/16 at 09:00 Diagnostic Test (Pha) (Accucheck) 1 ea 02 XX ; Start 09/19/16 at 02:00 Miscellaneous Information 1 ea NOTE XX ; Start 09/18/16 at 14:00 Glucose (Glutose) 15 gm Q15M PRN PO DECREASED GLUCOSE; Start 09/18/16 at 14:00 Glucose (Glutose) 22.5 gm Q15M PRN PO DECREASED GLUCOSE; Start 09/18/16 at 14:00 Dextrose (D50w Syringe) 25 ml Q15M PRN IV DECREASED GLUCOSE; Start 09/18/16 at 14:00 Dextrose (D50w Syringe) 50 ml Q15M PRN IV DECREASED GLUCOSE; Start 09/18/16 at 14:00 Glucagon (Glucagen) 1 mg Q15M PRN IM DECREASED GLUCOSE; Start 09/18/16 at 14:00 Glucose (Glutose) 15 gm Q15M PRN BUCCAL DECREASED GLUCOSE; Start 09/18/16 at 14: 00 Calcitriol (Rocaltrol) 0.25 mcg DAILY PO Last administered on 09/29/16 09:21; Admin Dose 0.25 MCG; Start 09/19/16 at 10:00 Nystatin (Nystatin Powder) 1 applic BID TOP Last administered on 09/29/16 10: 32; Admin Dose 1 APPLIC; Start 09/19/16 at 21:00 Levothyroxine Sodium (Synthroid) 75 mcg DAILY@06 PO Last administered on 06:20; Admin Dose 75 MCG; Start 09/21/16 at 06:00 Sodium Bicarbonate (Sodium Bicarbonate Tab) 650 mg TID PO Last administered on 09/29/16 12:55; Admin Dose 650 MG; Start 09/22/16 at 09:00 Vancomycin HCl (Vancomycin Oral Syringe) 250 mg Q6 PO Last administered on 09/29 12:54; Admin Dose 250 MG; Start 09/24/16 at 12:00 Lactobacillus Acidoph/ Bulgaricus 1 tab 1 tab TID PO Last administered on 12:55; Admin Dose 1 TAB; Start 09/24/16 at 13:00 Potassium Chloride/ Potassium Phosphate/Sodium Chloride (KCl/K Phos (Meq)/1/2 NS ) 1,007.2727 ml @ 60 mls/hr [id number] IV Last administered on 09/29/16 02:51; Admin Dose 60 MLS/HR; Start 09/26/16 at 12:00 Multivitamins/ Minerals (Theragran-M) 1 tab DAILY PO Last administered on 09:21; Admin Dose 1 TAB; Start 09/26/16 at 10:00 Escitalopram Oxalate (Lexapro) 10 mg DAILY PO Last administered on 09/29/16 09 :20; Admin Dose 10 MG; Start 09/28/16 at 10:30 Lorazepam (Ativan) 0.125 mg Q12 PRN IV ANXIETY; Start 09/29/16 at 11:30 ZHANNA KIRBY NP Sep 29, 2016 16:46
[2016-09-29] MEDS ORDERED: SOD CHLORIDE 0.9% IVPB SCH (18:00)
[2016-09-29] MEDS ORDERED: DAPTOMYCIN IVPB SCH (18:00)
[2016-09-29] MEDS: metroNIDAZOLE 500 MG/NS (PMX) 100 ML IVPB SCH ×2 (18:17→23:41)
[2016-09-29 20:14] VITALS: BP 174/70; RESP 18
[2016-09-29] MEDS: RIFAXIMIN 200 MG TAB PO SCH (21:58)
--- NOTE | 2016-09-29 22:23 | PN ---
DATE: 09/29/2016 TIME: Occurred approximately 7:40 a.m. SUBJECTIVE: The patient quite sleepy, is arousable, but apparently deep sleep, and I did not wake h er. PHYSICAL EXAMINATION: VITAL SIGNS: Revealed the following blood pressure was 150/69, pulse 69, respirations 20, temperatu re 97, O2 saturation 94%. HEENT: Negative. LUNGS: Clear. HEART: Reveals regular rhythm. IMPRESSION: 1. Renal failure, chronic. 2. Urinary tract infection. 3. Depression. 4. Diabetes mellitus type 2. REVIEW OF LABORATORY: None available for today. Lab from 09/28/2016. PLAN: To continue present treatment per ID and renal. Once cleared metabolically and infectious di sease tolbert, may be transferred to an ECF. Dictated By: DOUG BRINK MD SS/NTS Conf#: [id number] DID#: [id number] CC: LUBNA CLEMENTE MD;*EndCC*
[2016-09-30] MEDS: ACCUCHECK XX SCH (02:00)
[2016-09-30] MEDS: metroNIDAZOLE 500 MG/NS (PMX) 100 ML IVPB SCH ×3 (04:18→22:34)
[2016-09-30 06:24] LABS: POTASSIUM 5.1 mmol/L (3.5-5.1)
[2016-09-30 06:26] LABS: CREATININE 1.24 mg/dl (0.44-1.00)
[2016-09-30 06:27] LABS: CALCIUM 8.1 mg/dl (8.4-10.2); MAGNESIUM 1.5 mg/dl (1.7-2.5)
[2016-09-30] MEDS: LEVOTHYROXINE 75 MCG TAB PO SCH (06:30)
[2016-09-30] MEDS: VANCOMYCIN HCL 250 MG/5ML POSYG PO SCH ×4 (06:30→23:33)
[2016-09-30] MEDS: PANTOPRAZOLE (EC) 40 MG TAB PO SCH (06:30)
[2016-09-30 07:09] LABS: BASOPHIL # 0.1 10^3/ul (0.0-0.1); BASOPHILS % 0.5 % (0.0-2.0); EOSINOPHILS # 0.6 10^3/ul (0.0-0.5); EOSINOPHILS % 5.2 % (0.0-7.0); HEMATOCRIT 31.4 % (37.0-47.0); HEMOGLOBIN 10.4 g/dl (12.0-16.0); LYMPHOCYTES # 2.3 10^3/ul (0.8-2.9); LYMPHOCYTES % 18.4 % (15.0-51.0); MEAN CORPUSCULAR HEMOGLOBIN 28.4 pg (29.0-33.0); MEAN CORPUSCULAR VOLUME 86.1 fl (82.0-101.0); MEAN PLATELET VOLUME 8.5 fl (7.4-10.4); MONOCYTE # 1.3 10^3/ul (0.3-0.9); MONOCYTES % 10.4 % (0.0-11.0); NEUTROPHIL # 8.2 10^3/ul (1.6-7.5); NEUTROPHILS % 65.5 % (39.0-77.0); PLATELET COUNT 247 10^3/UL (140-440); RED BLOOD COUNT 3.64 10^6/ul (4.20-5.40); RED CELL DISTRIBUTION WIDTH 16.1 % (11.5-14.5); UNCORRECTED WBC 12.5 10^3/ul (4.8-10.8); WHITE BLOOD COUNT 12.5 10^3/ul (4.8-10.8)
[2016-09-30 07:20] LABS: CONDITION 1; LH ANALYZER COMMENTS 1
[2016-09-30 07:26] VITALS: BP 130/61; RESP 16
[2016-09-30] MEDS: INSULIN ASPART [NOVOLOG] 3 ML PEN SC SCH ×3 (08:00→17:10)
[2016-09-30] MEDS: CALCIUM ACETATE 667 MG CAP PO SCH ×3 (08:15→17:35)
[2016-09-30] MEDS: CHOLECALCIFEROL 1,000 UNIT TAB PO SCH (09:00)
[2016-09-30] MEDS: RIFAXIMIN 200 MG TAB PO SCH ×3 (09:00→20:58)
[2016-09-30] MEDS: LORATADINE 10 MG TAB PO SCH (09:00)
[2016-09-30] MEDS: NYSTATIN 30 GM POWDER BTL TOP SCH ×2 (09:00→20:58)
[2016-09-30] MEDS: ESCITALOPRAM 10 MG TAB PO SCH (09:00)
[2016-09-30] MEDS: MULTIVITAMINS/MINERALS TAB PO SCH (09:00)
[2016-09-30] MEDS: METOPROLOL 50 MG TAB PO SCH ×2 (09:00→20:58)
[2016-09-30] MEDS: HEPARIN 5,000 UNIT/0.5 ML SYG SC SCH ×2 (09:00→21:19)
[2016-09-30] MEDS: NA BICARBONATE 650 MG TAB PO SCH ×3 (09:00→20:58)
[2016-09-30] MEDS: LACTOBACILLUS CHEW TAB PO SCH ×3 (09:00→20:58)
[2016-09-30] MEDS: CALCITRIOL 0.25 MCG CAP PO SCH (09:00)
[2016-09-30] MEDS: SERTRALINE 50 MG TAB PO SCH (09:00)
--- NOTE | 2016-09-30 12:07 | CONS ---
Date/Time of Note Date/Time of Note DATE: 09/30/16 TIME: 12:05 Consult Date/Type/Reason Admit Date/Time Sep 18, 2016 at 12:23 Type of Consultation: ID Subjective no acute changes, no fevers, awake, confused, still with lose stools, nad Objective Vital Signs Date Time Temp Pulse Resp B/P Pulse Ox O2 Delivery O2 Flow Rate FiO2 09/30/16 07:26 98.6 87 16 130/61 99 09/28/16 08:00 Room Air Intake and Output 09/29/16 09/29/16 09/30/16 15:00 23:00 07:00 Intake Total 800 ml 600 ml Output Total 600 ml Balance 200 ml 600 ml Results/Medications Result Diagram: 09/30/16 0540 09/30/16 0540 Results 24 hrs Laboratory Tests Test 09/29/16 17:09 09/29/16 23:10 09/30/16 05:40 09/30/16 07:44 Bedside Glucose 90 127 72 Anion Gap 15 Basophils # 0.1 Basophils % 0.5 Blood Morphology Comment Blood Urea Nitrogen 10 Calcium Level 8.1 L Carbon Dioxide Level 22 Chloride Level 104 Creatinine 1.24 H Eosinophils # 0.6 H Eosinophils % 5.2 Glucose Level 71 Hematocrit 31.4 L Hemoglobin 10.4 L Lymphocytes # 2.3 Lymphocytes % 18.4 Magnesium Level 1.5 L Mean Corpuscular Hemoglobin 28.4 L Mean Corpuscular Hemoglobin Concent 33.0 Mean Corpuscular Volume 86.1 Mean Platelet Volume 8.5 Monocytes # 1.3 H Monocytes % 10.4 Neutrophils # 8.2 H Neutrophils % 65.5 Nucleated Red Blood Cells # 0.0 Nucleated Red Blood Cells % 0.0 Phosphorus Level 5.0 H Platelet Count 247 Potassium Level 5.1 Red Blood Count 3.64 L Red Cell Distribution Width 16.1 H Sodium Level 136 White Blood Count 12.5 H Test 09/30/16 11:50 09/30/16 11:58 Bedside Glucose 68 L 63 L Medications Current Medications Ondansetron HCl (Zofran Inj) 4 mg Q6H PRN IV NAUSEA AND/OR VOMITING; Start 09/18 at 14:00 Acetaminophen (Tylenol Tab) 650 mg Q6H PRN PO PAIN LEVEL 1-3 OR FEVER Last administered on 09/22/16t 22:20; Admin Dose 650 MG; Start 09/18/16 at 14:00 Pantoprazole (Protonix Tab) 40 mg DAILY@06 PO Last administered on 09/30/16 06 :30; Admin Dose 40 MG; Start 09/19/16 at 06:00 Heparin Sodium (Porcine) (Heparin (5000 Units/0.5 ml)) 5,000 unit Q12 SC Last administered on 09/29/16 22:16; Admin Dose 5,000 UNIT; Start 09/18/16 at 21:00 Tramadol HCl (Ultram) 50 mg BID PRN PO pain Last administered on 09/26/16 05: 10; Admin Dose 50 MG; Start 09/18/16 at 14:00 Cholecalciferol (Vitamin D) 1,000 unit DAILY PO Last administered on 09/29/16 09:21; Admin Dose 1,000 UNIT; Start 09/19/16 at 09:00 Loratadine (Claritin) 10 mg DAILY PO Last administered on 09/29/16 09:20; Admin Dose 10 MG; Start 09/19/16 at 09:00 Metoprolol Tartrate (Lopressor) 50 mg BID PO Last administered on 09/29/16 21: 58; Admin Dose 50 MG; Start 09/18/16 at 21:00 Sertraline HCl (Zoloft) 50 mg DAILY PO Last administered on 09/29/16 09:21; Admin Dose 50 MG; Start 09/19/16 at 09:00 Diagnostic Test (Pha) (Accucheck) 1 ea 02 XX ; Start 09/19/16 at 02:00 Miscellaneous Information 1 ea NOTE XX ; Start 09/18/16 at 14:00 Glucose (Glutose) 15 gm Q15M PRN PO DECREASED GLUCOSE; Start 09/18/16 at 14:00 Glucose (Glutose) 22.5 gm Q15M PRN PO DECREASED GLUCOSE; Start 09/18/16 at 14:00 Dextrose (D50w Syringe) 25 ml Q15M PRN IV DECREASED GLUCOSE; Start 09/18/16 at 14:00 Dextrose (D50w Syringe) 50 ml Q15M PRN IV DECREASED GLUCOSE; Start 09/18/16 at 14:00 Glucagon (Glucagen) 1 mg Q15M PRN IM DECREASED GLUCOSE; Start 09/18/16 at 14:00 Glucose (Glutose) 15 gm Q15M PRN BUCCAL DECREASED GLUCOSE; Start 09/18/16 at 14: 00 Calcitriol (Rocaltrol) 0.25 mcg DAILY PO Last administered on 09/29/16 09:21; Admin Dose 0.25 MCG; Start 09/19/16 at 10:00 Nystatin (Nystatin Powder) 1 applic BID TOP Last administered on 09/29/16 21: 59; Admin Dose 1 APPLIC; Start 09/19/16 at 21:00 Levothyroxine Sodium (Synthroid) 75 mcg DAILY@06 PO Last administered on 06:30; Admin Dose 75 MCG; Start 09/21/16 at 06:00 Sodium Bicarbonate (Sodium Bicarbonate Tab) 650 mg TID PO Last administered on 09/29/16 21:58; Admin Dose 650 MG; Start 09/22/16 at 09:00 Vancomycin HCl (Vancomycin Oral Syringe) 250 mg Q6 PO Last administered on 09/30 06:30; Admin Dose 250 MG; Start 09/24/16 at 12:00 Lactobacillus Acidoph/ Bulgaricus 1 tab 1 tab TID PO Last administered on 21:58; Admin Dose 1 TAB; Start 09/24/16 at 13:00 Potassium Chloride/ Potassium Phosphate/Sodium Chloride (KCl/K Phos (Meq)/1/2 NS ) 1,007.2727 ml @ 60 mls/hr [id number] IV Last administered on 09/29/16 23:41; Admin Dose 60 MLS/HR; Start 09/26/16 at 12:00 Multivitamins/ Minerals (Theragran-M) 1 tab DAILY PO Last administered on 09:21; Admin Dose 1 TAB; Start 09/26/16 at 10:00 Escitalopram Oxalate (Lexapro) 10 mg DAILY PO Last administered on 09/29/16 09 :20; Admin Dose 10 MG; Start 09/28/16 at 10:30 Lorazepam 0.125 mg 0.125 mg Q12 PRN IV ANXIETY; Start 09/29/16 at 11:30 Metronidazole (Flagyl 500 Mg (Pmx)) 100 ml @ 100 mls/hr Q8 IVPB Last administered on 09/30/16 04:18; Admin Dose 100 MLS/HR; Start 09/29/16 at 17:00 Rifaximin 200 mg 200 mg TID PO Last administered on 09/29/16t 21:58; Admin Dose 200 MG; Start 09/29/16 at 21:00; Stop 10/02/16 at 20:59 Daptomycin/Sodium Chloride (Cubicin/NS) 100 ml @ 200 mls/hr Q48H IVPB ; Start 10/01/16 at 18:00; Stop 10/04/16 at 17:59 Assessment/Plan Chief Complaint/Hosp Course ANTIMICROBIALS: Oral vancomycin, Flagyl IV, Daptomycin PHYSICAL EXAMINATION: GENERAL: This is a fragile, elderly woman who is awake, in no distress. HEENT: Head atraumatic, normocephalic. Sclerae anicteric. Buccal mucosa dry. NECK: Supple, trachea midline. CHEST: Rise symmetrical. Breath sounds clear. HEART: S1, S2. ABDOMEN: Soft. Bowel tones present. EXTREMITIES: No cyanosis. ASSESSMENT: 1. Persistent UTI==> VRE, status post Escherichia coli extended-spectrum beta- lactamase urinary tract infection, completed treatment with cefepime for 7 days. 2. Clostridium difficile colitis. 3. History of urostomy. 4. Diabetes. 5. Hypertension. PLAN: Clinically unchanged, continue current abx, pt is not eating per report ? NGT feeding [facility] staff Problems: GIGI WADE NP Sep 30, 2016 12:07
[2016-09-30] MEDS: DEXTROSE 5% 1,000 ML IV SCH (12:48)
[2016-09-30] MEDS ORDERED: DEXTROSE 50% 50 ML SYRINGE IV ONE ×2 (13:00→13:30)
[2016-09-30] MEDS: LORAZEPAM 2 MG INJ IV PRN ×2 (15:12→20:59)
[2016-09-30 19:30] VITALS: BP 136/101; RESP 20
--- NOTE | 2016-09-30 21:01 | CONS ---
Date/Time of Note Date/Time of Note DATE: 09/30/16 TIME: 20:56 Assessment/Plan Assessment/Plan Chief Complaint/Hosp Course 1. acute renal failure superimposed on CKD , mostly due to dehydration . she is getting IV fluids and renal function is improved . 2. dementia , she is more confused today; she is tearful . I suspect her sadness is due to dementia , deteriorating health and depression 3. anemia of CKD 4. UTI , has been treated with cefepime. The cefepime was discontinued because of diarrhea..Urine is now clear . 5. low Mag , will replace IV , 6. anorexia , failure to thrive . 7. will start D/C planning , I had a discussion with the and he wants rehabilitation center placement. I will put in for case management to evaluate for [facility]. 8. She has C. difficile colitis. She is on oral vancomycin for this. She has been seen by infectious disease specialist and followed by Dr. Mosqueda. Problems: Consultation Date/Type/Reason Admit Date/Time Sep 18, 2016 at 12:23 Type of Consultation: renal 24 HR Interval Summary Subjective hx not possible: pt non-verbal Constitutional: disoriented, poor po, requiring IVF Exam/Review of Systems Vital Signs Vitals Vital Signs Date Time Temp Pulse Resp B/P Pulse Ox O2 Delivery O2 Flow Rate FiO2 09/30/16 07:26 98.6 87 16 130/61 99 09/28/16 08:00 Room Air Intake and Output 09/29/16 09/29/16 09/30/16 14:59 22:59 06:59 Intake Total 800 ml 500 ml Output Total 600 ml Balance 200 ml 500 ml Exam Constitutional: frail Psych: confusion, depression Head: normocephalic Respiratory: clear to auscultation, normal air movement Cardiovascular: regular rate and rhythm Gastrointestinal: soft Musculoskeletal: nl extremities to inspection Results Result Diagram: 09/30/16 0540 09/30/16 0540 Results 24 hrs Laboratory Tests Test 09/29/16 23:10 09/30/16 05:40 09/30/16 07:44 09/30/16 11:50 Bedside Glucose 127 72 68 L Anion Gap 15 Basophils # 0.1 Basophils % 0.5 Blood Morphology Comment Blood Urea Nitrogen 10 Calcium Level 8.1 L Carbon Dioxide Level 22 Chloride Level 104 Creatinine 1.24 H Eosinophils # 0.6 H Eosinophils % 5.2 Glucose Level 71 Hematocrit 31.4 L Hemoglobin 10.4 L Lymphocytes # 2.3 Lymphocytes % 18.4 Magnesium Level 1.5 L Mean Corpuscular Hemoglobin 28.4 L Mean Corpuscular Hemoglobin Concent 33.0 Mean Corpuscular Volume 86.1 Mean Platelet Volume 8.5 Monocytes # 1.3 H Monocytes % 10.4 Neutrophils # 8.2 H Neutrophils % 65.5 Nucleated Red Blood Cells # 0.0 Nucleated Red Blood Cells % 0.0 Phosphorus Level 5.0 H Platelet Count 247 Potassium Level 5.1 Red Blood Count 3.64 L Red Cell Distribution Width 16.1 H Sodium Level 136 White Blood Count 12.5 H Test 09/30/16 11:58 09/30/16 13:21 09/30/16 13:52 09/30/16 14:19 Bedside Glucose 63 L 69 L 154 117 Test 09/30/16 14:47 09/30/16 16:40 Bedside Glucose 96 74 Medications Medications Current Medications Ondansetron HCl (Zofran Inj) 4 mg Q6H PRN IV NAUSEA AND/OR VOMITING; Start 09/18 at 14:00 Acetaminophen (Tylenol Tab) 650 mg Q6H PRN PO PAIN LEVEL 1-3 OR FEVER Last administered on 09/22/16 22:20; Admin Dose 650 MG; Start 09/18/16 at 14:00 Pantoprazole (Protonix Tab) 40 mg DAILY@06 PO Last administered on 09/30/16 06 :30; Admin Dose 40 MG; Start 09/19/16 at 06:00 Heparin Sodium (Porcine) (Heparin (5000 Units/0.5 ml)) 5,000 unit Q12 SC Last administered on 09/29/16 22:16; Admin Dose 5,000 UNIT; Start 09/18/16 at 21:00 Tramadol HCl (Ultram) 50 mg BID PRN PO pain Last administered on 09/26/16 05: 10; Admin Dose 50 MG; Start 09/18/16 at 14:00 Cholecalciferol (Vitamin D) 1,000 unit DAILY PO Last administered on 09/29/16 09:21; Admin Dose 1,000 UNIT; Start 09/19/16 at 09:00 Loratadine (Claritin) 10 mg DAILY PO Last administered on 09/29/16 09:20; Admin Dose 10 MG; Start 09/19/16 at 09:00 Metoprolol Tartrate (Lopressor) 50 mg BID PO Last administered on 09/29/16 21: 58; Admin Dose 50 MG; Start 09/18/16 at 21:00 Sertraline HCl (Zoloft) 50 mg DAILY PO Last administered on 09/29/16 09:21; Admin Dose 50 MG; Start 09/19/16 at 09:00 Diagnostic Test (Pha) (Accucheck) 1 ea 02 XX ; Start 09/19/16 at 02:00 Miscellaneous Information 1 ea NOTE XX ; Start 09/18/16 at 14:00 Glucose (Glutose) 15 gm Q15M PRN PO DECREASED GLUCOSE; Start 09/18/16 at 14:00 Glucose (Glutose) 22.5 gm Q15M PRN PO DECREASED GLUCOSE; Start 09/18/16 at 14:00 Dextrose (D50w Syringe) 25 ml Q15M PRN IV DECREASED GLUCOSE; Start 09/18/16 at 14:00 Dextrose (D50w Syringe) 50 ml Q15M PRN IV DECREASED GLUCOSE; Start 09/18/16 at 14:00 Glucagon (Glucagen) 1 mg Q15M PRN IM DECREASED GLUCOSE; Start 09/18/16 at 14:00 Glucose (Glutose) 15 gm Q15M PRN BUCCAL DECREASED GLUCOSE Last administered on 09/30/16 12:16; Admin Dose 15 GM; Start 09/18/16 at 14:00 Calcitriol (Rocaltrol) 0.25 mcg DAILY PO Last administered on 09/29/16 09:21; Admin Dose 0.25 MCG; Start 09/19/16 at 10:00 Nystatin (Nystatin Powder) 1 applic BID TOP Last administered on 09/29/16 21: 59; Admin Dose 1 APPLIC; Start 09/19/16 at 21:00 Levothyroxine Sodium (Synthroid) 75 mcg DAILY@06 PO Last administered on 06:30; Admin Dose 75 MCG; Start 09/21/16 at 06:00 Sodium Bicarbonate (Sodium Bicarbonate Tab) 650 mg TID PO Last administered on 09/29/16 21:58; Admin Dose 650 MG; Start 09/22/16 at 09:00 Vancomycin HCl (Vancomycin Oral Syringe) 250 mg Q6 PO Last administered on 09/30 17:35; Admin Dose 250 MG; Start 09/24/16 at 12:00 Lactobacillus Acidoph/Bulgaricus (Floranex) 1 tab TID PO Last administered on 21:58; Admin Dose 1 TAB; Start 09/24/16 at 13:00 Multivitamins/ Minerals (Theragran-M) 1 tab DAILY PO Last administered on 09:21; Admin Dose 1 TAB; Start 09/26/16 at 10:00 Escitalopram Oxalate (Lexapro) 10 mg DAILY PO Last administered on 09/29/16 09 :20; Admin Dose 10 MG; Start 09/28/16 at 10:30 Lorazepam 0.125 mg 0.125 mg Q12 PRN IV ANXIETY Last administered on 09/30/16 15:12; Admin Dose 0.125 MG; Start 09/29/16 at 11:30 Metronidazole (Flagyl 500 Mg (Pmx)) 100 ml @ 100 mls/hr Q8 IVPB Last administered on 09/30/16 14:06; Admin Dose 100 MLS/HR; Start 09/29/16 at 17:00 Rifaximin 200 mg 200 mg TID PO Last administered on 09/29/16 21:58; Admin Dose 200 MG; Start 09/29/16 at 21:00; Stop 10/02/16 at 20:59 Daptomycin 250 mg/ Sodium Chloride 100 ml @ 200 mls/hr Q48H IVPB ; Start at 18:00; Stop 10/04/16 at 17:59 Dextrose (D5W) 1,000 ml @ 50 mls/hr Q20H IV Last administered on 09/30/16 12: 48; Admin Dose 50 MLS/HR; Start 09/30/16 at 13:00 LUBNA CLEMENTE MD Sep 30, 2016 21:01
--- NOTE | 2016-09-30 21:54 | PN ---
Date/Time of Note Date/Time of Note DATE: 09/30/16 TIME: 21:42 Assessment/Plan VTE Prophylaxis VTE Prophylaxis Intervention: other Lines/Catheters IV [facility]ter Type (from [facility]): Peripheral IV Urinary Cath still in place: No Assessment/Plan Problems: (1) Recurrent UTI Status: Acute Comment: Now with Enterococcal Vancomycin resistant UTI. Started on Daptomycin. (2) Type 2 diabetes mellitus with diabetic chronic kidney disease Status: Chronic Comment: Good glycemic control overall. Blood sugar in the 60's today secondary to patient with poor oral intake secondary to depression. Will continue to monitor. Qualifiers: Chronic kidney disease stage: on chronic dialysis (3) Essential (primary) hypertension Status: Chronic Comment: Good BP control. (4) Major depressive disorder, single episode, mild Status: Acute Comment: Started on Lexapro. Continuous crying. Expect Lexapro to take at least another couple of weeks before effective. (5) Chronic kidney disease, stage IV (severe) Status: Chronic Comment: HD per nephrology. (6) Failure to thrive in adult Comment: Little motivation. Refusing PT and PE. Depressed. May need to consider hospice care. Subjective 24 Hr Interval Summary Free Text/Dictation Continues to cry on a daily basis. Poor oral intake with subsequent drop in blood sugar. Exam/Review of Systems Vital Signs Vitals Vital Signs Date Time Temp Pulse Resp B/P Pulse Ox O2 Delivery O2 Flow Rate FiO2 09/30/16 07:26 98.6 87 16 130/61 99 09/28/16 08:00 Room Air Intake and Output 09/29/16 09/29/16 09/30/16 15:00 23:00 07:00 Intake Total 800 ml 600 ml Output Total 600 ml Balance 200 ml 600 ml Exam refuses examination Constitutional: alert, well developed Results POC glucose and labs reviewed Result Diagram: 09/30/16 0540 09/30/16 0540 Results 24 hrs Laboratory Tests Test 09/29/16 23:10 09/30/16 05:40 09/30/16 07:44 09/30/16 11:50 Bedside Glucose 127 72 68 L Anion Gap 15 Basophils # 0.1 Basophils % 0.5 Blood Morphology Comment Blood Urea Nitrogen 10 Calcium Level 8.1 L Carbon Dioxide Level 22 Chloride Level 104 Creatinine 1.24 H Eosinophils # 0.6 H Eosinophils % 5.2 Glucose Level 71 Hematocrit 31.4 L Hemoglobin 10.4 L Lymphocytes # 2.3 Lymphocytes % 18.4 Magnesium Level 1.5 L Mean Corpuscular Hemoglobin 28.4 L Mean Corpuscular Hemoglobin Concent 33.0 Mean Corpuscular Volume 86.1 Mean Platelet Volume 8.5 Monocytes # 1.3 H Monocytes % 10.4 Neutrophils # 8.2 H Neutrophils % 65.5 Nucleated Red Blood Cells # 0.0 Nucleated Red Blood Cells % 0.0 Phosphorus Level 5.0 H Platelet Count 247 Potassium Level 5.1 Red Blood Count 3.64 L Red Cell Distribution Width 16.1 H Sodium Level 136 White Blood Count 12.5 H Test 09/30/16 11:58 09/30/16 13:21 09/30/16 13:52 09/30/16 14:19 Bedside Glucose 63 L 69 L 154 117 Test 09/30/16 14:47 09/30/16 16:40 Bedside Glucose 96 74 Medications Medications Current Medications Ondansetron HCl (Zofran Inj) 4 mg Q6H PRN IV NAUSEA AND/OR VOMITING; Start 09/18 at 14:00 Acetaminophen (Tylenol Tab) 650 mg Q6H PRN PO PAIN LEVEL 1-3 OR FEVER Last administered on 09/22/16 22:20; Admin Dose 650 MG; Start 09/18/16 at 14:00 Pantoprazole (Protonix Tab) 40 mg DAILY@06 PO Last administered on 09/30/16 06 :30; Admin Dose 40 MG; Start 09/19/16 at 06:00 Heparin Sodium (Porcine) (Heparin (5000 Units/0.5 ml)) 5,000 unit Q12 SC Last administered on 09/30/16 21:19; Admin Dose 5,000 UNIT; Start 09/18/16 at 21:00 Tramadol HCl (Ultram) 50 mg BID PRN PO pain Last administered on 09/26/16 05: 10; Admin Dose 50 MG; Start 09/18/16 at 14:00 Cholecalciferol (Vitamin D) 1,000 unit DAILY PO Last administered on 09/29/16 09:21; Admin Dose 1,000 UNIT; Start 09/19/16 at 09:00 Loratadine (Claritin) 10 mg DAILY PO Last administered on 09/29/16 09:20; Admin Dose 10 MG; Start 09/19/16 at 09:00 Metoprolol Tartrate (Lopressor) 50 mg BID PO Last administered on 09/30/16 20: 58; Admin Dose 50 MG; Start 09/18/16 at 21:00 Sertraline HCl (Zoloft) 50 mg DAILY PO Last administered on 09/29/16 09:21; Admin Dose 50 MG; Start 09/19/16 at 09:00 Diagnostic Test (Pha) (Accucheck) 1 ea 02 XX ; Start 09/19/16 at 02:00 Miscellaneous Information 1 ea NOTE XX ; Start 09/18/16 at 14:00 Glucose (Glutose) 15 gm Q15M PRN PO DECREASED GLUCOSE; Start 09/18/16 at 14:00 Glucose (Glutose) 22.5 gm Q15M PRN PO DECREASED GLUCOSE; Start 09/18/16 at 14:00 Dextrose (D50w Syringe) 25 ml Q15M PRN IV DECREASED GLUCOSE; Start 09/18/16 at 14:00 Dextrose (D50w Syringe) 50 ml Q15M PRN IV DECREASED GLUCOSE; Start 09/18/16 at 14:00 Glucagon (Glucagen) 1 mg Q15M PRN IM DECREASED GLUCOSE; Start 09/18/16 at 14:00 Glucose (Glutose) 15 gm Q15M PRN BUCCAL DECREASED GLUCOSE Last administered on 09/30/16 12:16; Admin Dose 15 GM; Start 09/18/16 at 14:00 Calcitriol (Rocaltrol) 0.25 mcg DAILY PO Last administered on 09/29/16 09:21; Admin Dose 0.25 MCG; Start 09/19/16 at 10:00 Nystatin (Nystatin Powder) 1 applic BID TOP Last administered on 09/30/16 20: 58; Admin Dose 1 APPLIC; Start 09/19/16 at 21:00 Levothyroxine Sodium (Synthroid) 75 mcg DAILY@06 PO Last administered on 06:30; Admin Dose 75 MCG; Start 09/21/16 at 06:00 Sodium Bicarbonate (Sodium Bicarbonate Tab) 650 mg TID PO Last administered on 09/30/16 20:58; Admin Dose 650 MG; Start 09/22/16 at 09:00 Vancomycin HCl (Vancomycin Oral Syringe) 250 mg Q6 PO Last administered on 09/30 17:35; Admin Dose 250 MG; Start 09/24/16 at 12:00 Lactobacillus Acidoph/Bulgaricus (Floranex) 1 tab TID PO Last administered on 20:58; Admin Dose 1 TAB; Start 09/24/16 at 13:00 Multivitamins/ Minerals (Theragran-M) 1 tab DAILY PO Last administered on 09:21; Admin Dose 1 TAB; Start 09/26/16 at 10:00 Escitalopram Oxalate (Lexapro) 10 mg DAILY PO Last administered on 09/29/16 09 :20; Admin Dose 10 MG; Start 09/28/16 at 10:30 Lorazepam 0.125 mg 0.125 mg Q12 PRN IV ANXIETY Last administered on 09/30/16 20:59; Admin Dose 0.125 MG; Start 09/29/16 at 11:30 Metronidazole (Flagyl 500 Mg (Pmx)) 100 ml @ 100 mls/hr Q8 IVPB Last administered on 09/30/16 14:06; Admin Dose 100 MLS/HR; Start 09/29/16 at 17:00 Rifaximin 200 mg 200 mg TID PO Last administered on 09/30/16 20:58; Admin Dose 200 MG; Start 09/29/16 at 21:00; Stop 10/02/16 at 20:59 Daptomycin 250 mg/ Sodium Chloride 100 ml @ 200 mls/hr Q48H IVPB ; Start at 18:00; Stop 10/04/16 at 17:59 Dextrose (D5W) 1,000 ml @ 50 mls/hr Q20H IV Last administered on 09/30/16 12: 48; Admin Dose 50 MLS/HR; Start 09/30/16 at 13:00 CHRISTINE BELLO MD Sep 30, 2016 21:52
[2016-10-01] MEDS: ACCUCHECK XX SCH (01:20)
[2016-10-01] MEDS: VANCOMYCIN HCL 250 MG/5ML POSYG PO SCH ×3 (06:07→17:42)
[2016-10-01] MEDS: metroNIDAZOLE 500 MG/NS (PMX) 100 ML IVPB SCH ×3 (06:07→22:30)
[2016-10-01] MEDS: LEVOTHYROXINE 75 MCG TAB PO SCH (06:07)
[2016-10-01] MEDS: PANTOPRAZOLE (EC) 40 MG TAB PO SCH (06:07)
--- NOTE | 2016-10-01 07:56 | CONS ---
Date/Time of Note Date/Time of Note DATE: 10/01/16 TIME: 07:54 Assessment/Plan Assessment/Plan Chief Complaint/Hosp Course 1. acute renal failure superimposed on CKD , mostly due to dehydration . she is getting IV fluids and renal function is improved . 2. dementia , she is less confused today; she is not tearful . I suspect her sadness is due to dementia , deteriorating health and depression . she seems better today 3. anemia of CKD 4. UTI , has been treated with cefepime. The cefepime was discontinued because of diarrhea..Urine is now clear . 5. low Mag , will replace IV , 6. anorexia , failure to thrive . 7. will start D/C planning , I had a discussion with the and he wants rehabilitation center placement. I will put in for case management to evaluate for [facility]. 8. She has C. difficile colitis. She is on oral vancomycin for this. She has been seen by infectious disease specialist and followed by Dr. Mosqueda. Problems: Consultation Date/Type/Reason Admit Date/Time Sep 18, 2016 at 12:23 Type of Consultation: renal 24 HR Interval Summary Free Text/Dictation She is much more awake today . She makes eye contact and is responsive . Constitutional: improved, no complaints Exam/Review of Systems Vital Signs Vitals Vital Signs Date Time Temp Pulse Resp B/P Pulse Ox O2 Delivery O2 Flow Rate FiO2 09/30/16 19:30 98.6 96 20 136/101 99 09/28/16 08:00 Room Air Intake and Output 09/30/16 09/30/16 10/01/16 15:00 23:00 07:00 Intake Total 400 ml 800 ml 620 ml Output Total 500 ml 350 ml Balance 400 ml 300 ml 270 ml Exam Constitutional: alert Psych: confusion, no complaints Head: normocephalic Respiratory: clear to auscultation Cardiovascular: regular rate and rhythm Gastrointestinal: soft Musculoskeletal: nl extremities to inspection Results Result Diagram: 09/30/16 0540 09/30/16 0540 Results 24 hrs Laboratory Tests Test 09/30/16 11:50 09/30/16 11:58 09/30/16 13:21 09/30/16 13:52 Bedside Glucose 68 L 63 L 69 L 154 Test 09/30/16 14:19 09/30/16 14:47 09/30/16 16:40 10/01/16 01:16 Bedside Glucose 117 96 74 74 Test 10/01/16 05:15 Magnesium Level 1.4 L Medications Medications Current Medications Ondansetron HCl (Zofran Inj) 4 mg Q6H PRN IV NAUSEA AND/OR VOMITING; Start 09/18 at 14:00 Acetaminophen (Tylenol Tab) 650 mg Q6H PRN PO PAIN LEVEL 1-3 OR FEVER Last administered on 09/22/16 22:20; Admin Dose 650 MG; Start 09/18/16 at 14:00 Pantoprazole (Protonix Tab) 40 mg DAILY@06 PO Last administered on 10/01/16 06 :07; Admin Dose 40 MG; Start 09/19/16 at 06:00 Heparin Sodium (Porcine) (Heparin (5000 Units/0.5 ml)) 5,000 unit Q12 SC Last administered on 09/30/16 21:19; Admin Dose 5,000 UNIT; Start 09/18/16 at 21:00 Tramadol HCl (Ultram) 50 mg BID PRN PO pain Last administered on 09/26/16 05: 10; Admin Dose 50 MG; Start 09/18/16 at 14:00 Cholecalciferol (Vitamin D) 1,000 unit DAILY PO Last administered on 09/29/16 09:21; Admin Dose 1,000 UNIT; Start 09/19/16 at 09:00 Loratadine (Claritin) 10 mg DAILY PO Last administered on 09/29/16 09:20; Admin Dose 10 MG; Start 09/19/16 at 09:00 Metoprolol Tartrate (Lopressor) 50 mg BID PO Last administered on 09/30/16 20: 58; Admin Dose 50 MG; Start 09/18/16 at 21:00 Sertraline HCl (Zoloft) 50 mg DAILY PO Last administered on 09/29/16 09:21; Admin Dose 50 MG; Start 09/19/16 at 09:00 Diagnostic Test (Pha) (Accucheck) 1 ea 02 XX Last administered on 10/01/16 01: 20; Admin Dose 1 EA; Start 09/19/16 at 02:00 Miscellaneous Information 1 ea NOTE XX ; Start 09/18/16 at 14:00 Glucose (Glutose) 15 gm Q15M PRN PO DECREASED GLUCOSE; Start 09/18/16 at 14:00 Glucose (Glutose) 22.5 gm Q15M PRN PO DECREASED GLUCOSE; Start 09/18/16 at 14:00 Dextrose (D50w Syringe) 25 ml Q15M PRN IV DECREASED GLUCOSE; Start 09/18/16 at 14:00 Dextrose (D50w Syringe) 50 ml Q15M PRN IV DECREASED GLUCOSE; Start 09/18/16 at 14:00 Glucagon (Glucagen) 1 mg Q15M PRN IM DECREASED GLUCOSE; Start 09/18/16 at 14:00 Glucose (Glutose) 15 gm Q15M PRN BUCCAL DECREASED GLUCOSE Last administered on 09/30/16 12:16; Admin Dose 15 GM; Start 09/18/16 at 14:00 Calcitriol (Rocaltrol) 0.25 mcg DAILY PO Last administered on 09/29/16 09:21; Admin Dose 0.25 MCG; Start 09/19/16 at 10:00 Nystatin (Nystatin Powder) 1 applic BID TOP Last administered on 09/30/16 20: 58; Admin Dose 1 APPLIC; Start 09/19/16 at 21:00 Levothyroxine Sodium (Synthroid) 75 mcg DAILY@06 PO Last administered on 06:07; Admin Dose 75 MCG; Start 09/21/16 at 06:00 Sodium Bicarbonate (Sodium Bicarbonate Tab) 650 mg TID PO Last administered on 09/30/16 20:58; Admin Dose 650 MG; Start 09/22/16 at 09:00 Vancomycin HCl (Vancomycin Oral Syringe) 250 mg Q6 PO Last administered on 10/01 06:07; Admin Dose 250 MG; Start 09/24/16 at 12:00 Lactobacillus Acidoph/Bulgaricus (Floranex) 1 tab TID PO Last administered on 20:58; Admin Dose 1 TAB; Start 09/24/16 at 13:00 Multivitamins/ Minerals (Theragran-M) 1 tab DAILY PO Last administered on 09:21; Admin Dose 1 TAB; Start 09/26/16 at 10:00 Escitalopram Oxalate (Lexapro) 10 mg DAILY PO Last administered on 09/29/16 09 :20; Admin Dose 10 MG; Start 09/28/16 at 10:30 Lorazepam 0.125 mg 0.125 mg Q12 PRN IV ANXIETY Last administered on 09/30/16 20:59; Admin Dose 0.125 MG; Start 09/29/16 at 11:30 Metronidazole (Flagyl 500 Mg (Pmx)) 100 ml @ 100 mls/hr Q8 IVPB Last administered on 10/01/16 06:07; Admin Dose 100 MLS/HR; Start 09/29/16 at 17:00 Rifaximin 200 mg 200 mg TID PO Last administered on 09/30/16 20:58; Admin Dose 200 MG; Start 09/29/16 at 21:00; Stop 10/02/16 at 20:59 Daptomycin 250 mg/ Sodium Chloride 100 ml @ 200 mls/hr Q48H IVPB ; Start at 18:00; Stop 10/04/16 at 17:59 Dextrose 1,000 ml @ 50 mls/hr Q20H IV Last administered on 09/30/16 12:48; Admin Dose 50 MLS/HR; Start 09/30/16 at 13:00 Magnesium Sulfate/ Sodium Chloride (Magnesium Sulfate/NS) 106 ml @ 35.333 mls/ hr ONCE ONCE IVPB ; Start 10/01/16 at 08:00; Stop 10/01/16 at 10:59 LUBNA CLEMENTE MD Oct 01, 2016 07:56
[2016-10-01 07:59] VITALS: BP 119/56; RESP 16
[2016-10-01] MEDS: INSULIN ASPART [NOVOLOG] 3 ML PEN SC SCH ×3 (08:00→17:45)
[2016-10-01] MEDS ORDERED: MAGNESIUM SULFATE 3 GM in SOD CHLORIDE 0.9% 100 ML IVPB ONE (08:00)
[2016-10-01] MEDS: DEXTROSE 5% 1,000 ML IV SCH (09:00)
[2016-10-01] MEDS: RIFAXIMIN 200 MG TAB PO SCH ×3 (09:30→22:20)
[2016-10-01] MEDS: NA BICARBONATE 650 MG TAB PO SCH ×3 (09:30→22:20)
[2016-10-01] MEDS: CALCITRIOL 0.25 MCG CAP PO SCH (09:30)
[2016-10-01] MEDS: ESCITALOPRAM 10 MG TAB PO SCH (09:31)
[2016-10-01] MEDS: SERTRALINE 50 MG TAB PO SCH (09:31)
[2016-10-01] MEDS: CALCIUM ACETATE 667 MG CAP PO SCH ×3 (09:31→17:43)
[2016-10-01] MEDS: METOPROLOL 50 MG TAB PO SCH ×2 (09:31→22:20)
[2016-10-01] MEDS: LACTOBACILLUS CHEW TAB PO SCH ×3 (09:31→22:19)
[2016-10-01] MEDS: LORATADINE 10 MG TAB PO SCH (09:31)
[2016-10-01] MEDS: NYSTATIN 30 GM POWDER BTL TOP SCH ×2 (09:32→22:21)
[2016-10-01] MEDS: CHOLECALCIFEROL 1,000 UNIT TAB PO SCH (09:32)
[2016-10-01] MEDS: MULTIVITAMINS/MINERALS TAB PO SCH (09:32)
[2016-10-01] MEDS: HEPARIN 5,000 UNIT/0.5 ML SYG SC SCH ×2 (09:57→22:22)
--- NOTE | 2016-10-01 13:41 | CONS ---
Date/Time of Note Date/Time of Note DATE: 10/01/16 TIME: 13:39 Consult Date/Type/Reason Admit Date/Time Sep 18, 2016 at 12:23 Type of Consultation: ID Subjective no acute changes, no fevers/diarrhea today, pt is not eating, sleeping, nad Objective Vital Signs Date Time Temp Pulse Resp B/P Pulse Ox O2 Delivery O2 Flow Rate FiO2 10/01/16 07:59 98.6 72 16 119/56 97 09/28/16 08:00 Room Air Intake and Output 09/30/16 09/30/16 10/01/16 15:00 23:00 07:00 Intake Total 400 ml 800 ml 620 ml Output Total 500 ml 350 ml Balance 400 ml 300 ml 270 ml Results/Medications Result Diagram: 09/30/16 0540 09/30/16 0540 Results 24 hrs Laboratory Tests Test 09/30/16 13:52 09/30/16 14:19 09/30/16 14:47 09/30/16 16:40 Bedside Glucose 154 117 96 74 Test 10/01/16 01:16 10/01/16 05:15 10/01/16 07:51 10/01/16 12:14 Bedside Glucose 74 82 91 Magnesium Level 1.4 L Medications Current Medications Ondansetron HCl (Zofran Inj) 4 mg Q6H PRN IV NAUSEA AND/OR VOMITING; Start 09/18 at 14:00 Acetaminophen (Tylenol Tab) 650 mg Q6H PRN PO PAIN LEVEL 1-3 OR FEVER Last administered on 09/22/16 22:20; Admin Dose 650 MG; Start 09/18/16 at 14:00 Pantoprazole (Protonix Tab) 40 mg DAILY@06 PO Last administered on 10/01/16 06 :07; Admin Dose 40 MG; Start 09/19/16 at 06:00 Heparin Sodium (Porcine) (Heparin (5000 Units/0.5 ml)) 5,000 unit Q12 SC Last administered on 10/01/16 09:57; Admin Dose 5,000 UNIT; Start 09/18/16 at 21:00 Tramadol HCl (Ultram) 50 mg BID PRN PO pain Last administered on 09/26/16 05: 10; Admin Dose 50 MG; Start 09/18/16 at 14:00 Cholecalciferol (Vitamin D) 1,000 unit DAILY PO Last administered on 10/01/16 09:32; Admin Dose 1,000 UNIT; Start 09/19/16 at 09:00 Loratadine (Claritin) 10 mg DAILY PO Last administered on 10/01/16 09:31; Admin Dose 10 MG; Start 09/19/16 at 09:00 Metoprolol Tartrate (Lopressor) 50 mg BID PO Last administered on 10/01/16 09: 31; Admin Dose 50 MG; Start 09/18/16 at 21:00 Sertraline HCl (Zoloft) 50 mg DAILY PO Last administered on 10/01/16 09:31; Admin Dose 50 MG; Start 09/19/16 at 09:00 Diagnostic Test (Pha) (Accucheck) 1 ea 02 XX Last administered on 10/01/16 01: 20; Admin Dose 1 EA; Start 09/19/16 at 02:00 Miscellaneous Information 1 ea NOTE XX ; Start 09/18/16 at 14:00 Glucose (Glutose) 15 gm Q15M PRN PO DECREASED GLUCOSE; Start 09/18/16 at 14:00 Glucose (Glutose) 22.5 gm Q15M PRN PO DECREASED GLUCOSE; Start 09/18/16 at 14:00 Dextrose (D50w Syringe) 25 ml Q15M PRN IV DECREASED GLUCOSE; Start 09/18/16 at 14:00 Dextrose (D50w Syringe) 50 ml Q15M PRN IV DECREASED GLUCOSE; Start 09/18/16 at 14:00 Glucagon (Glucagen) 1 mg Q15M PRN IM DECREASED GLUCOSE; Start 09/18/16 at 14:00 Glucose (Glutose) 15 gm Q15M PRN BUCCAL DECREASED GLUCOSE Last administered on 09/30/16 12:16; Admin Dose 15 GM; Start 09/18/16 at 14:00 Calcitriol (Rocaltrol) 0.25 mcg DAILY PO Last administered on 10/01/16 09:30; Admin Dose 0.25 MCG; Start 09/19/16 at 10:00 Nystatin (Nystatin Powder) 1 applic BID TOP Last administered on 10/01/16 09: 32; Admin Dose 1 APPLIC; Start 09/19/16 at 21:00 Levothyroxine Sodium (Synthroid) 75 mcg DAILY@06 PO Last administered on 06:07; Admin Dose 75 MCG; Start 09/21/16 at 06:00 Sodium Bicarbonate (Sodium Bicarbonate Tab) 650 mg TID PO Last administered on 10/01/16 12:45; Admin Dose 650 MG; Start 09/22/16 at 09:00 Vancomycin HCl (Vancomycin Oral Syringe) 250 mg Q6 PO Last administered on 10/01 12:45; Admin Dose 250 MG; Start 09/24/16 at 12:00 Lactobacillus Acidoph/Bulgaricus (Floranex) 1 tab TID PO Last administered on 12:45; Admin Dose 1 TAB; Start 09/24/16 at 13:00 Multivitamins/ Minerals (Theragran-M) 1 tab DAILY PO Last administered on 09:32; Admin Dose 1 TAB; Start 09/26/16 at 10:00 Escitalopram Oxalate (Lexapro) 10 mg DAILY PO Last administered on 10/01/16 09 :31; Admin Dose 10 MG; Start 09/28/16 at 10:30 Lorazepam 0.125 mg 0.125 mg Q12 PRN IV ANXIETY Last administered on 09/30/16 20:59; Admin Dose 0.125 MG; Start 09/29/16 at 11:30 Metronidazole (Flagyl 500 Mg (Pmx)) 100 ml @ 100 mls/hr Q8 IVPB Last administered on 10/01/16 12:44; Admin Dose 100 MLS/HR; Start 09/29/16 at 17:00 Rifaximin 200 mg 200 mg TID PO Last administered on 10/01/16 12:45; Admin Dose 200 MG; Start 09/29/16 at 21:00; Stop 10/02/16 at 20:59 Daptomycin 250 mg/ Sodium Chloride 100 ml @ 200 mls/hr Q48H IVPB ; Start at 18:00; Stop 10/04/16 at 17:59 Dextrose (D5W) 1,000 ml @ 50 mls/hr Q20H IV Last administered on 09/30/16 12: 48; Admin Dose 50 MLS/HR; Start 09/30/16 at 13:00 Assessment/Plan Chief Complaint/Hosp Course ANTIMICROBIALS: Oral vancomycin, Flagyl IV, Daptomycin PHYSICAL EXAMINATION: GENERAL: This is a fragile, elderly woman who is in no distress. HEENT: Head atraumatic, normocephalic. Sclerae anicteric NECK: Supple, trachea midline. CHEST: Rise symmetrical. Breath sounds clear. HEART: S1, S2. ABDOMEN: Soft. Bowel tones present. EXTREMITIES: No cyanosis. ASSESSMENT: 1. Persistent UTI==> VRE, status post Escherichia coli extended-spectrum beta- lactamase urinary tract infection, completed treatment with cefepime for 7 days 2. Clostridium difficile colitis. 3. History of urostomy. 4. Diabetes. 5. Hypertension. PLAN: Clinically unchanged, continue present care/ abx, optimize nutrition DW staff Problems: GIGI WADE NP Oct 01, 2016 13:41
--- NOTE | 2016-10-01 13:59 | PN ---
DATE: 10/01/2016 HOSPITAL VISIT: Approximately 7:40 a.m. SUBJECTIVE: Patient today is actually communicative, is up, is answering questions and has somewhat of a smile on her face. PHYSICAL EXAMINATION VITAL SIGNS: Blood pressure is 118/56, pulse 72, respirations 16, temperature 98.6, O2 saturation 9 7%. HEENT: Unremarkable. LUNGS: Clear. HEART: Reveals a regular rhythm. ABDOMEN: Unremarkable. IMPRESSION: 1. Dehydration chronic renal failure, improved. 2. Urinary tract infection, improving. 3. Diabetes mellitus type 2, stable. 4. Hypertension, stable. DISCUSSION: Review of laboratory and other data reveals the following: Yesterday's labs revealed a stable white count. Chemistries are still not available; however, her sugars have been quite good. Her magnesium was somewhat low at this point in time. The rest of the parameters are unchanged. PLAN: The following: Discussion with the and Dr. Caceres all concurred that ECF placemen t possibly at [facility] is preferable for this patient until she can gather some more strength and maybe heal a little bit more. CONDITION: Today is improving. Dictated By: DOUG BRINK MD SS/RENE Conf#: [id number] DID#: [id number]
[2016-10-01] MEDS: LORAZEPAM 2 MG INJ IV PRN ×2 (16:10→20:40)
[2016-10-01] MEDS ORDERED: DAPTOMYCIN 250 MG in SOD CHLORIDE 0.9% 100 ML IVPB SCH (18:00)
[2016-10-01 21:12] VITALS: BP 164/68; RESP 21
[2016-10-01 21:37] LABS: ALBUMIN 2.9 g/dl (3.3-4.9)
[2016-10-01 21:38] LABS: POTASSIUM 4.1 mmol/L (3.5-5.1)
[2016-10-01 21:40] LABS: ALBUMIN/GLOBULIN RATIO 0.96; CREATININE 1.41 mg/dl (0.44-1.00); TOTAL PROTEIN 5.9 g/dl (6.1-8.1)
[2016-10-01 21:41] LABS: CALCIUM 8.1 mg/dl (8.4-10.2)
[2016-10-01 23:00] VITALS: BP 145/62; PULSE 70; RESP 18
[2016-10-02] MEDS: VANCOMYCIN HCL 250 MG/5ML POSYG PO SCH ×4 (01:24→17:31)
[2016-10-02] MEDS: ACCUCHECK XX SCH (02:00)
[2016-10-02] MEDS: DEXTROSE 5% 1,000 ML IV SCH ×2 (05:00→12:14)
[2016-10-02] MEDS: PANTOPRAZOLE (EC) 40 MG TAB PO SCH (05:55)
[2016-10-02] MEDS: LEVOTHYROXINE 75 MCG TAB PO SCH (05:55)
[2016-10-02] MEDS: metroNIDAZOLE 500 MG/NS (PMX) 100 ML IVPB SCH ×3 (05:55→21:50)
[2016-10-02 07:25] VITALS: BP 132/75; RESP 16
[2016-10-02] MEDS: LORAZEPAM 2 MG INJ IV PRN (07:47)
[2016-10-02] MEDS: INSULIN ASPART [NOVOLOG] 3 ML PEN SC SCH ×3 (07:52→17:34)
[2016-10-02] MEDS: NA BICARBONATE 650 MG TAB PO SCH ×3 (08:48→21:49)
[2016-10-02] MEDS: LACTOBACILLUS CHEW TAB PO SCH ×3 (08:48→21:50)
[2016-10-02] MEDS: CALCIUM ACETATE 667 MG CAP PO SCH ×3 (08:48→17:32)
[2016-10-02] MEDS: RIFAXIMIN 200 MG TAB PO SCH ×2 (08:49→12:18)
[2016-10-02] MEDS: CALCITRIOL 0.25 MCG CAP PO SCH (08:49)
[2016-10-02] MEDS: MULTIVITAMINS/MINERALS TAB PO SCH (08:49)
[2016-10-02] MEDS: SERTRALINE 50 MG TAB PO SCH (08:50)
[2016-10-02] MEDS: LORATADINE 10 MG TAB PO SCH (08:50)
[2016-10-02] MEDS: METOPROLOL 50 MG TAB PO SCH ×2 (08:50→21:51)
[2016-10-02] MEDS: ESCITALOPRAM 10 MG TAB PO SCH (08:50)
[2016-10-02] MEDS: CHOLECALCIFEROL 1,000 UNIT TAB PO SCH (08:50)
[2016-10-02] MEDS: HEPARIN 5,000 UNIT/0.5 ML SYG SC SCH ×2 (08:59→21:58)
[2016-10-02] MEDS: NYSTATIN 30 GM POWDER BTL TOP SCH ×2 (09:00→21:50)
--- NOTE | 2016-10-02 09:31 | CONS ---
Date/Time of Note Date/Time of Note DATE: 10/02/16 TIME: 09:26 Assessment/Plan Assessment/Plan Chief Complaint/Hosp Course 1. acute renal failure superimposed on CKD , mostly due to dehydration . she is getting IV fluids and renal function is improved . 2. dementia , she is still confused today; she is not tearful . I suspect her sadness is due to dementia , deteriorating health and depression . she seems better today, however she is requiring frequent doses of Ativan to keep her from being agitated and jumping out of bed. 3. anemia of CKD 4. UTI , has been treated with cefepime. The cefepime was discontinued because of diarrhea..Urine is now clear . 5. low Mag , will replace IV , 6. anorexia , failure to thrive . 7. will start D/C planning , I had a discussion with the and he wants rehabilitation center placement. I will put in for case management to evaluate for [facility]. 8. She has C. difficile colitis. She is on oral vancomycin for this. She has been seen by infectious disease specialist and followed by Dr. Mosqueda. 9. Discharge planning is in process; however, she has several infections including VRE in the urine and C. difficile colitis. I also have Dr. Pierre seeing her or palliative care/hospice considerations. He is having discussions with her . Problems: Consultation Date/Type/Reason Admit Date/Time Sep 18, 2016 at 12:23 Type of Consultation: ID [id number] HR Interval Summary Free Text/Dictation she is sleeping in her bed. She does arouse easily to verbal stimuli. She is smiling. She is confused. She is getting intermittent doses of Ativan to keep her from being agitated and getting out of bed Constitutional: no complaints Exam/Review of Systems Vital Signs Vitals Vital Signs Date Time Temp Pulse Resp B/P Pulse Ox O2 Delivery O2 Flow Rate FiO2 10/02/16 07:25 97.8 56 16 132/75 91 10/01/16 23:00 Room Air Intake and Output 10/01/16 10/01/16 10/02/16 15:00 23:00 07:00 Intake Total 580 ml 400 ml Output Total 400 ml 1000 ml Balance 180 ml -600 ml Exam Psych: confusion, depression Respiratory: clear to auscultation, normal air movement Cardiovascular: regular rate and rhythm Gastrointestinal: soft Musculoskeletal: nl extremities to inspection Results Result Diagram: 09/30/16 0540 10/01/160 Results 24 hrs Laboratory Tests Test 10/01/16 12:14 10/01/16 17:45 10/01/16 21:20 10/02/16 02:21 Bedside Glucose 91 109 71 Alanine Aminotransferase (ALT/SGPT) 24 Albumin 2.9 L Albumin/Globulin Ratio 0.96 Alkaline Phosphatase 118 Anion Gap 16 Aspartate Amino Transf (AST/SGOT) 20 Blood Urea Nitrogen 8 Calcium Level 8.1 L Carbon Dioxide Level 22 Chloride Level 103 Creatinine 1.41 H Direct Bilirubin 0.00 Globulin 3.00 Glucose Level 95 Indirect Bilirubin 0.0 Potassium Level 4.1 Sodium Level 137 Total Bilirubin 0.0 L Total Protein 5.9 L Test 10/02/16 07:51 Bedside Glucose 95 Medications Medications Current Medications Ondansetron HCl (Zofran Inj) 4 mg Q6H PRN IV NAUSEA AND/OR VOMITING; Start 09/18 at 14:00 Acetaminophen (Tylenol Tab) 650 mg Q6H PRN PO PAIN LEVEL 1-3 OR FEVER Last administered on 09/22/16 22:20; Admin Dose 650 MG; Start 09/18/16 at 14:00 Pantoprazole (Protonix Tab) 40 mg DAILY@06 PO Last administered on 10/02/16 05 :55; Admin Dose 40 MG; Start 09/19/16 at 06:00 Heparin Sodium (Porcine) (Heparin (5000 Units/0.5 ml)) 5,000 unit Q12 SC Last administered on 10/02/16 08:59; Admin Dose 5,000 UNIT; Start 09/18/16 at 21:00 Tramadol HCl (Ultram) 50 mg BID PRN PO pain Last administered on 09/26/16 05: 10; Admin Dose 50 MG; Start 09/18/16 at 14:00 Cholecalciferol (Vitamin D) 1,000 unit DAILY PO Last administered on 10/02/16 08:50; Admin Dose 1,000 UNIT; Start 09/19/16 at 09:00 Loratadine (Claritin) 10 mg DAILY PO Last administered on 10/02/16 08:50; Admin Dose 10 MG; Start 09/19/16 at 09:00 Metoprolol Tartrate (Lopressor) 50 mg BID PO Last administered on 10/01/16 22: 20; Admin Dose 50 MG; Start 09/18/16 at 21:00 Sertraline HCl (Zoloft) 50 mg DAILY PO Last administered on 10/02/16 08:50; Admin Dose 50 MG; Start 09/19/16 at 09:00 Diagnostic Test (Pha) (Accucheck) 1 ea 02 XX Last administered on 10/01/16 01: 20; Admin Dose 1 EA; Start 09/19/16 at 02:00 Miscellaneous Information 1 ea NOTE XX ; Start 09/18/16 at 14:00 Glucose (Glutose) 15 gm Q15M PRN PO DECREASED GLUCOSE; Start 09/18/16 at 14:00 Glucose (Glutose) 22.5 gm Q15M PRN PO DECREASED GLUCOSE; Start 09/18/16 at 14:00 Dextrose (D50w Syringe) 25 ml Q15M PRN IV DECREASED GLUCOSE; Start 09/18/16 at 14:00 Dextrose (D50w Syringe) 50 ml Q15M PRN IV DECREASED GLUCOSE; Start 09/18/16 at 14:00 Glucagon (Glucagen) 1 mg Q15M PRN IM DECREASED GLUCOSE; Start 09/18/16 at 14:00 Glucose (Glutose) 15 gm Q15M PRN BUCCAL DECREASED GLUCOSE Last administered on 09/30/16 12:16; Admin Dose 15 GM; Start 09/18/16 at 14:00 Calcitriol (Rocaltrol) 0.25 mcg DAILY PO Last administered on 10/02/16 08:49; Admin Dose 0.25 MCG; Start 09/19/16 at 10:00 Nystatin (Nystatin Powder) 1 applic BID TOP Last administered on 10/02/16 09: 00; Admin Dose 1 APPLIC; Start 09/19/16 at 21:00 Levothyroxine Sodium (Synthroid) 75 mcg DAILY@06 PO Last administered on 05:55; Admin Dose 75 MCG; Start 09/21/16 at 06:00 Sodium Bicarbonate (Sodium Bicarbonate Tab) 650 mg TID PO Last administered on 10/02/16 08:48; Admin Dose 650 MG; Start 09/22/16 at 09:00 Vancomycin HCl (Vancomycin Oral Syringe) 250 mg Q6 PO Last administered on 10/02 05:55; Admin Dose 250 MG; Start 09/24/16 at 12:00 Lactobacillus Acidoph/Bulgaricus (Floranex) 1 tab TID PO Last administered on 08:48; Admin Dose 1 TAB; Start 09/24/16 at 13:00 Multivitamins/ Minerals (Theragran-M) 1 tab DAILY PO Last administered on 08:49; Admin Dose 1 TAB; Start 09/26/16 at 10:00 Escitalopram Oxalate 10 mg 10 mg DAILY PO Last administered on 10/02/16 08:50 ; Admin Dose 10 MG; Start 09/28/16 at 10:30 Metronidazole (Flagyl 500 Mg (Pmx)) 100 ml @ 100 mls/hr Q8 IVPB Last administered on 10/02/16 05:55; Admin Dose 100 MLS/HR; Start 09/29/16 at 17:00 Rifaximin 200 mg 200 mg TID PO Last administered on 10/02/16 08:49; Admin Dose 200 MG; Start 09/29/16 at 21:00; Stop 10/02/16 at 20:59 Daptomycin 250 mg/ Sodium Chloride 100 ml @ 200 mls/hr Q48H IVPB Last administered on 10/01/16 17:47; Admin Dose 200 MLS/HR; Start 10/01/16 at 18:00 ; Stop 10/04/16 at 17:59 Dextrose (D5W) 1,000 ml @ 50 mls/hr Q20H IV Last administered on 09/30/16 12: 48; Admin Dose 50 MLS/HR; Start 09/30/16 at 13:00 Lorazepam (Ativan) 0.25 mg Q4H PRN IV ANXIETY Last administered on 10/02/16 07 :47; Admin Dose 0.25 MG; Start 10/01/16 at 20:30 LUBNA CLEMENTE MD Oct 02, 2016 09:31
--- NOTE | 2016-10-02 12:57 | PN ---
Date/Time of Note Date/Time of Note DATE: 10/02/16 TIME: 12:45 Assessment/Plan VTE Prophylaxis VTE Prophylaxis Intervention: anti-embolic stocking, heparin Lines/Catheters IV Catheter Type (from Nrs): Saline Lock Urinary Cath still in place: No Assessment/Plan Problems: (1) Functional diarrhea Status: Chronic Comment: Persistent loose stool per RN (2) Type 2 diabetes mellitus with diabetic chronic kidney disease Status: Chronic Comment: Decent glycemic control Qualifiers: Chronic kidney disease stage: on chronic dialysis (3) Failure to thrive in adult Status: Chronic Comment: Depressive state contributing to patients lack of motivation and failure to thrive. (4) Depressed Status: Acute Comment: Started on Lexapro last weekend. Receiving Ativan for agitation. (5) Recurrent UTI Status: Acute Comment: VRE UTI. On Daptomycin. (6) Essential (primary) hypertension Status: Chronic Comment: Decent overall control Assessment/Plan Evaluation per Hospice service appreciated. Dr. Caceres"s involvement in this patient's care greatly appreciated. Plan for possible hospice combined with transfer to group home facility, as patient unable to go home and receive appropriate and required care. Subjective 24 Hr Interval Summary Constitutional: other Exam/Review of Systems Vital Signs Vitals Vital Signs Date Time Temp Pulse Resp B/P Pulse Ox O2 Delivery O2 Flow Rate FiO2 10/02/16 07:25 97.8 56 16 132/75 91 10/01/16 23:00 Room Air Intake and Output 10/01/16 10/01/16 10/02/16 15:00 23:00 07:00 Intake Total 580 ml 400 ml Output Total 400 ml 1000 ml Balance 180 ml -600 ml Exam Psych: depression Respiratory: clear to auscultation Cardiovascular: regular rate and rhythm Gastrointestinal: soft Musculoskeletal: nl extremities to inspection Results POC glucose and labs reviewed Result Diagram: 09/30/16 0540 10/01/160 Results 24 hrs Laboratory Tests Test 10/01/16 17:45 10/01/16 21:20 10/02/16 02:21 10/02/16 07:51 Bedside Glucose 109 71 95 Alanine Aminotransferase (ALT/SGPT) 24 Albumin 2.9 L Albumin/Globulin Ratio 0.96 Alkaline Phosphatase 118 Anion Gap 16 Aspartate Amino Transf (AST/SGOT) 20 Blood Urea Nitrogen 8 Calcium Level 8.1 L Carbon Dioxide Level 22 Chloride Level 103 Creatinine 1.41 H Direct Bilirubin 0.00 Globulin 3.00 Glucose Level 95 Indirect Bilirubin 0.0 Potassium Level 4.1 Sodium Level 137 Total Bilirubin 0.0 L Total Protein 5.9 L Test 10/02/16 12:12 Bedside Glucose 84 Medications Medications Current Medications Ondansetron HCl (Zofran Inj) 4 mg Q6H PRN IV NAUSEA AND/OR VOMITING; Start 09/18 at 14:00 Acetaminophen (Tylenol Tab) 650 mg Q6H PRN PO PAIN LEVEL 1-3 OR FEVER Last administered on 09/22/16 22:20; Admin Dose 650 MG; Start 09/18/16 at 14:00 Pantoprazole (Protonix Tab) 40 mg DAILY@06 PO Last administered on 10/02/16 05 :55; Admin Dose 40 MG; Start 09/19/16 at 06:00 Heparin Sodium (Porcine) (Heparin (5000 Units/0.5 ml)) 5,000 unit Q12 SC Last administered on 10/02/16 08:59; Admin Dose 5,000 UNIT; Start 09/18/16 at 21:00 Tramadol HCl (Ultram) 50 mg BID PRN PO pain Last administered on 09/26/16 05: 10; Admin Dose 50 MG; Start 09/18/16 at 14:00 Cholecalciferol (Vitamin D) 1,000 unit DAILY PO Last administered on 10/02/16 08:50; Admin Dose 1,000 UNIT; Start 09/19/16 at 09:00 Loratadine (Claritin) 10 mg DAILY PO Last administered on 10/02/16 08:50; Admin Dose 10 MG; Start 09/19/16 at 09:00 Metoprolol Tartrate (Lopressor) 50 mg BID PO Last administered on 10/01/16 22: 20; Admin Dose 50 MG; Start 09/18/16 at 21:00 Sertraline HCl (Zoloft) 50 mg DAILY PO Last administered on 10/02/16 08:50; Admin Dose 50 MG; Start 09/19/16 at 09:00 Diagnostic Test (Pha) (Accucheck) 1 ea 02 XX Last administered on 10/01/16 01: 20; Admin Dose 1 EA; Start 09/19/16 at 02:00 Miscellaneous Information 1 ea NOTE XX ; Start 09/18/16 at 14:00 Glucose (Glutose) 15 gm Q15M PRN PO DECREASED GLUCOSE; Start 09/18/16 at 14:00 Glucose (Glutose) 22.5 gm Q15M PRN PO DECREASED GLUCOSE; Start 09/18/16 at 14:00 Dextrose (D50w Syringe) 25 ml Q15M PRN IV DECREASED GLUCOSE; Start 09/18/16 at 14:00 Dextrose (D50w Syringe) 50 ml Q15M PRN IV DECREASED GLUCOSE; Start 09/18/16 at 14:00 Glucagon (Glucagen) 1 mg Q15M PRN IM DECREASED GLUCOSE; Start 09/18/16 at 14:00 Glucose (Glutose) 15 gm Q15M PRN BUCCAL DECREASED GLUCOSE Last administered on 09/30/16 12:16; Admin Dose 15 GM; Start 09/18/16 at 14:00 Calcitriol (Rocaltrol) 0.25 mcg DAILY PO Last administered on 10/02/16 08:49; Admin Dose 0.25 MCG; Start 09/19/16 at 10:00 Nystatin (Nystatin Powder) 1 applic BID TOP Last administered on 10/02/16 09: 00; Admin Dose 1 APPLIC; Start 09/19/16 at 21:00 Levothyroxine Sodium (Synthroid) 75 mcg DAILY@06 PO Last administered on 05:55; Admin Dose 75 MCG; Start 09/21/16 at 06:00 Sodium Bicarbonate (Sodium Bicarbonate Tab) 650 mg TID PO Last administered on 10/02/16 12:18; Admin Dose 650 MG; Start 09/22/16 at 09:00 Vancomycin HCl (Vancomycin Oral Syringe) 250 mg Q6 PO Last administered on 10/02 12:18; Admin Dose 250 MG; Start 09/24/16 at 12:00 Lactobacillus Acidoph/Bulgaricus (Floranex) 1 tab TID PO Last administered on 12:18; Admin Dose 1 TAB; Start 09/24/16 at 13:00 Multivitamins/ Minerals (Theragran-M) 1 tab DAILY PO Last administered on 08:49; Admin Dose 1 TAB; Start 09/26/16 at 10:00 Escitalopram Oxalate 10 mg 10 mg DAILY PO Last administered on 10/02/16 08:50 ; Admin Dose 10 MG; Start 09/28/16 at 10:30 Metronidazole (Flagyl 500 Mg (Pmx)) 100 ml @ 100 mls/hr Q8 IVPB Last administered on 10/02/16 05:55; Admin Dose 100 MLS/HR; Start 09/29/16 at 17:00 Rifaximin 200 mg 200 mg TID PO Last administered on 10/02/16 12:18; Admin Dose 200 MG; Start 09/29/16 at 21:00; Stop 10/02/16 at 20:59 Daptomycin 250 mg/ Sodium Chloride 100 ml @ 200 mls/hr Q48H IVPB Last administered on 10/01/16 17:47; Admin Dose 200 MLS/HR; Start 10/01/16 at 18:00 ; Stop 10/04/16 at 17:59 Dextrose (D5W) 1,000 ml @ 50 mls/hr Q20H IV Last administered on 10/02/16 12: 14; Admin Dose 50 MLS/HR; Start 09/30/16 at 13:00 Lorazepam (Ativan) 0.25 mg Q4H PRN IV ANXIETY Last administered on 10/02/16 07 :47; Admin Dose 0.25 MG; Start 10/01/16 at 20:30 CHRISTINE BELLO MD Oct 02, 2016 12:55
--- NOTE | 2016-10-02 13:55 | CONS ---
Date/Time of Note Date/Time of Note DATE: 10/02/16 TIME: 13:54 Consult Date/Type/Reason Admit Date/Time Sep 18, 2016 at 12:23 Type of Consultation: ID Subjective all noted, sleeping, no fevers, nad Objective Vital Signs Date Time Temp Pulse Resp B/P Pulse Ox O2 Delivery O2 Flow Rate FiO2 10/02/16 07:25 97.8 56 16 132/75 91 10/01/16 23:00 Room Air Intake and Output 10/01/16 10/01/16 10/02/16 15:00 23:00 07:00 Intake Total 580 ml 400 ml Output Total 400 ml 1000 ml Balance 180 ml -600 ml Results/Medications Result Diagram: 09/30/16 0540 10/01/160 Results 24 hrs Laboratory Tests Test 10/01/16 17:45 10/01/16 21:20 10/02/16 02:21 10/02/16 07:51 Bedside Glucose 109 71 95 Alanine Aminotransferase (ALT/SGPT) 24 Albumin 2.9 L Albumin/Globulin Ratio 0.96 Alkaline Phosphatase 118 Anion Gap 16 Aspartate Amino Transf (AST/SGOT) 20 Blood Urea Nitrogen 8 Calcium Level 8.1 L Carbon Dioxide Level 22 Chloride Level 103 Creatinine 1.41 H Direct Bilirubin 0.00 Globulin 3.00 Glucose Level 95 Indirect Bilirubin 0.0 Potassium Level 4.1 Sodium Level 137 Total Bilirubin 0.0 L Total Protein 5.9 L Test 10/02/16 12:12 Bedside Glucose 84 Medications Current Medications Ondansetron HCl (Zofran Inj) 4 mg Q6H PRN IV NAUSEA AND/OR VOMITING; Start 09/18 at 14:00 Acetaminophen (Tylenol Tab) 650 mg Q6H PRN PO PAIN LEVEL 1-3 OR FEVER Last administered on 09/22/16 22:20; Admin Dose 650 MG; Start 09/18/16 at 14:00 Pantoprazole (Protonix Tab) 40 mg DAILY@06 PO Last administered on 10/02/16 05 :55; Admin Dose 40 MG; Start 09/19/16 at 06:00 Heparin Sodium (Porcine) (Heparin (5000 Units/0.5 ml)) 5,000 unit Q12 SC Last administered on 10/02/16 08:59; Admin Dose 5,000 UNIT; Start 09/18/16 at 21:00 Tramadol HCl (Ultram) 50 mg BID PRN PO pain Last administered on 09/26/16 05: 10; Admin Dose 50 MG; Start 09/18/16 at 14:00 Cholecalciferol (Vitamin D) 1,000 unit DAILY PO Last administered on 10/02/16 08:50; Admin Dose 1,000 UNIT; Start 09/19/16 at 09:00 Loratadine (Claritin) 10 mg DAILY PO Last administered on 10/02/16 08:50; Admin Dose 10 MG; Start 09/19/16 at 09:00 Metoprolol Tartrate (Lopressor) 50 mg BID PO Last administered on 10/01/16 22: 20; Admin Dose 50 MG; Start 09/18/16 at 21:00 Sertraline HCl (Zoloft) 50 mg DAILY PO Last administered on 10/02/16 08:50; Admin Dose 50 MG; Start 09/19/16 at 09:00 Diagnostic Test (Pha) (Accucheck) 1 ea 02 XX Last administered on 10/01/16 01: 20; Admin Dose 1 EA; Start 09/19/16 at 02:00 Miscellaneous Information 1 ea NOTE XX ; Start 09/18/16 at 14:00 Glucose (Glutose) 15 gm Q15M PRN PO DECREASED GLUCOSE; Start 09/18/16 at 14:00 Glucose (Glutose) 22.5 gm Q15M PRN PO DECREASED GLUCOSE; Start 09/18/16 at 14:00 Dextrose (D50w Syringe) 25 ml Q15M PRN IV DECREASED GLUCOSE; Start 09/18/16 at 14:00 Dextrose (D50w Syringe) 50 ml Q15M PRN IV DECREASED GLUCOSE; Start 09/18/16 at 14:00 Glucagon (Glucagen) 1 mg Q15M PRN IM DECREASED GLUCOSE; Start 09/18/16 at 14:00 Glucose (Glutose) 15 gm Q15M PRN BUCCAL DECREASED GLUCOSE Last administered on 09/30/16 12:16; Admin Dose 15 GM; Start 09/18/16 at 14:00 Calcitriol (Rocaltrol) 0.25 mcg DAILY PO Last administered on 10/02/16 08:49; Admin Dose 0.25 MCG; Start 09/19/16 at 10:00 Nystatin (Nystatin Powder) 1 applic BID TOP Last administered on 10/02/16 09: 00; Admin Dose 1 APPLIC; Start 09/19/16 at 21:00 Levothyroxine Sodium (Synthroid) 75 mcg DAILY@06 PO Last administered on 05:55; Admin Dose 75 MCG; Start 09/21/16 at 06:00 Sodium Bicarbonate (Sodium Bicarbonate Tab) 650 mg TID PO Last administered on 10/02/16 12:18; Admin Dose 650 MG; Start 09/22/16 at 09:00 Vancomycin HCl (Vancomycin Oral Syringe) 250 mg Q6 PO Last administered on 10/02 12:18; Admin Dose 250 MG; Start 09/24/16 at 12:00 Lactobacillus Acidoph/Bulgaricus (Floranex) 1 tab TID PO Last administered on 12:18; Admin Dose 1 TAB; Start 09/24/16 at 13:00 Multivitamins/ Minerals (Theragran-M) 1 tab DAILY PO Last administered on 08:49; Admin Dose 1 TAB; Start 09/26/16 at 10:00 Escitalopram Oxalate 10 mg 10 mg DAILY PO Last administered on 10/02/16 08:50 ; Admin Dose 10 MG; Start 09/28/16 at 10:30 Metronidazole (Flagyl 500 Mg (Pmx)) 100 ml @ 100 mls/hr Q8 IVPB Last administered on 10/02/16 05:55; Admin Dose 100 MLS/HR; Start 09/29/16 at 17:00 Rifaximin 200 mg 200 mg TID PO Last administered on 10/02/16 12:18; Admin Dose 200 MG; Start 09/29/16 at 21:00; Stop 10/02/16 at 20:59 Daptomycin 250 mg/ Sodium Chloride 100 ml @ 200 mls/hr Q48H IVPB Last administered on 10/01/16 17:47; Admin Dose 200 MLS/HR; Start 10/01/16 at 18:00 ; Stop 10/04/16 at 17:59 Dextrose (D5W) 1,000 ml @ 50 mls/hr Q20H IV Last administered on 10/02/16 12: 14; Admin Dose 50 MLS/HR; Start 09/30/16 at 13:00 Lorazepam (Ativan) 0.25 mg Q4H PRN IV ANXIETY Last administered on 10/02/16t 07 :47; Admin Dose 0.25 MG; Start 10/01/16 at 20:30 Assessment/Plan Chief Complaint/Hosp Course ANTIMICROBIALS: Oral vancomycin, Flagyl IV, Daptomycin PHYSICAL EXAMINATION: GENERAL: This is a fragile, elderly woman who is in no distress. HEENT: Head atraumatic, normocephalic. Sclerae anicteric NECK: Supple, trachea midline. CHEST: Rise symmetrical. Breath sounds clear. HEART: S1, S2. ABDOMEN: Soft. Bowel tones present. EXTREMITIES: No cyanosis. ASSESSMENT: 1. Persistent UTI==> VRE, status post Escherichia coli extended-spectrum beta- lactamase urinary tract infection, completed treatment with cefepime for 7 days 2. Clostridium difficile colitis. 3. History of urostomy. 4. Diabetes. 5. Hypertension. PLAN: Clinically unchanged, will keep on Daptomycin for one more day, continue abx for C dif, agree with palliative care evaluation staff Problems: GIGI WADE NP Oct 02, 2016 13:55
[2016-10-02 20:08] VITALS: BP 139/63; RESP 20
[2016-10-03] MEDS: VANCOMYCIN HCL 250 MG/5ML POSYG PO SCH ×3 (00:09→12:07)
[2016-10-03] MEDS: ACCUCHECK XX SCH (00:14)
[2016-10-03] MEDS: metroNIDAZOLE 500 MG/NS (PMX) 100 ML IVPB SCH (05:50)
[2016-10-03] MEDS: PANTOPRAZOLE (EC) 40 MG TAB PO SCH (05:52)
[2016-10-03] MEDS: LEVOTHYROXINE 75 MCG TAB PO SCH (05:52)
[2016-10-03 06:30] LABS: ALBUMIN 2.6 g/dl (3.3-4.9)
[2016-10-03 06:31] LABS: POTASSIUM 3.7 mmol/L (3.5-5.1)
[2016-10-03 06:33] LABS: ALBUMIN/GLOBULIN RATIO 0.89; CREATININE 1.3 mg/dl (0.44-1.00); TOTAL PROTEIN 5.5 g/dl (6.1-8.1)
[2016-10-03 06:34] LABS: MAGNESIUM 1.9 mg/dl (1.7-2.5)
[2016-10-03 06:42] LABS: BASOPHIL # 0.1 10^3/ul (0.0-0.1); BASOPHILS % 0.8 % (0.0-2.0); EOSINOPHILS # 0.9 10^3/ul (0.0-0.5); EOSINOPHILS % 6.7 % (0.0-7.0); HEMATOCRIT 31.5 % (37.0-47.0); HEMOGLOBIN 10.2 g/dl (12.0-16.0); LYMPHOCYTES # 2.7 10^3/ul (0.8-2.9); LYMPHOCYTES % 19.7 % (15.0-51.0); MEAN CORPUSCULAR HEMOGLOBIN 27.8 pg (29.0-33.0); MEAN CORPUSCULAR HGB CONC 32.3 g/dl (32.0-37.0); MEAN CORPUSCULAR VOLUME 86.1 fl (82.0-101.0); MEAN PLATELET VOLUME 8.2 fl (7.4-10.4); MONOCYTES % 7.6 % (0.0-11.0); NEUTROPHIL # 8.8 10^3/ul (1.6-7.5); NEUTROPHILS % 65.2 % (39.0-77.0); PLATELET COUNT 293 10^3/UL (140-440); RED BLOOD COUNT 3.66 10^6/ul (4.20-5.40); RED CELL DISTRIBUTION WIDTH 16.4 % (11.5-14.5); UNCORRECTED WBC 13.5 10^3/ul (4.8-10.8); WHITE BLOOD COUNT 13.5 10^3/ul (4.8-10.8)
[2016-10-03] MEDS: LORAZEPAM 2 MG INJ IV PRN ×2 (06:56→13:42)
[2016-10-03 06:58] LABS: CONDITION 1; LH ANALYZER COMMENTS 1
[2016-10-03] MEDS: INSULIN ASPART [NOVOLOG] 3 ML PEN SC SCH ×3 (07:49→17:44)
[2016-10-03 08:09] VITALS: BP 133/58; RESP 18
[2016-10-03] MEDS: METOPROLOL 50 MG TAB PO SCH ×2 (08:12→21:54)
[2016-10-03] MEDS: SERTRALINE 50 MG TAB PO SCH (08:12)
[2016-10-03] MEDS: NA BICARBONATE 650 MG TAB PO SCH ×3 (08:12→21:50)
[2016-10-03] MEDS: CALCITRIOL 0.25 MCG CAP PO SCH (08:12)
[2016-10-03] MEDS: LORATADINE 10 MG TAB PO SCH (08:13)
[2016-10-03] MEDS: ESCITALOPRAM 10 MG TAB PO SCH (08:13)
[2016-10-03] MEDS: CHOLECALCIFEROL 1,000 UNIT TAB PO SCH (08:13)
[2016-10-03] MEDS: LACTOBACILLUS CHEW TAB PO SCH ×3 (08:13→21:50)
[2016-10-03] MEDS: NYSTATIN 30 GM POWDER BTL TOP SCH ×2 (08:13→21:54)
[2016-10-03] MEDS: MULTIVITAMINS/MINERALS TAB PO SCH (08:13)
[2016-10-03] MEDS: CALCIUM ACETATE 667 MG CAP PO SCH ×3 (08:13→17:39)
[2016-10-03] MEDS: HEPARIN 5,000 UNIT/0.5 ML SYG SC SCH ×2 (08:37→22:53)
--- NOTE | 2016-10-03 10:44 | CONS ---
Date/Time of Note Date/Time of Note DATE: 10/03/16 TIME: 10:34 Assessment/Plan Assessment/Plan Chief Complaint/Hosp Course 1. acute renal failure superimposed on CKD , mostly due to dehydration . she is getting IV fluids and renal function is improved . 2. dementia , she is still confused today; she is not tearful . I suspect her sadness is due to dementia , deteriorating health and depression . she seems better today, however she is requiring frequent doses of Ativan to keep her from being agitated and jumping out of bed. I will start her on Seroquel , To see if that keeps her calm 3. anemia of CKD 4. UTI , has been treated with cefepime. She now has vancomycin resistant enterococcus and is on daptomycin. . 5. low Mag , will replace IV , 6. anorexia , failure to thrive . 7. will start D/C planning , I had a discussion with the and he wants rehabilitation center placement. I will put in for case management to evaluate for [facility]. 8. Diarrhea, her latest stool for C. difficile toxin is negative.. 9. Discharge planning is in process; however, she has several infections including VRE in the urine and C. difficile colitis. I also have Dr. Pierre seeing her or palliative care/hospice considerations. He is having discussions with her . Problems: Consultation Date/Type/Reason Admit Date/Time Sep 18, 2016 at 12:23 Type of Consultation: ID [id number] HR Interval Summary Free Text/Dictation She is still having diarrhea and is confused .Her stool for C. difficile toxin was negative yesterday. She is requiring Ativan to keep her from being agitated and trying to get out of bed. Exam/Review of Systems Vital Signs Vitals Vital Signs Date Time Temp Pulse Resp B/P Pulse Ox O2 Delivery O2 Flow Rate FiO2 10/03/16 08:09 98.4 66 18 133/58 96 10/01/16 23:00 Room Air Intake and Output 10/02/16 10/02/16 10/03/16 15:00 23:00 07:00 Intake Total 520 ml Output Total 350 ml 150 ml Balance 170 ml -150 ml Exam Psych: confusion Respiratory: clear to auscultation Cardiovascular: regular rate and rhythm Gastrointestinal: soft Musculoskeletal: nl extremities to inspection Results Result Diagram: 10/03/16 0550 10/03/16 0550 Results 24 hrs Laboratory Tests Test 10/02/16 12:12 10/02/16 17:34 10/03/16 05:50 10/03/16 07:49 Bedside Glucose 84 110 79 Alanine Aminotransferase (ALT/SGPT) 25 Albumin 2.6 L Albumin/Globulin Ratio 0.89 Alkaline Phosphatase 106 Anion Gap 13 Aspartate Amino Transf (AST/SGOT) 16 Basophils # 0.1 Basophils % 0.8 Blood Morphology Comment Blood Urea Nitrogen 6 L Calcium Level 8.0 L Carbon Dioxide Level 23 Chloride Level 101 Creatine Kinase 30 Creatinine 1.30 H Direct Bilirubin 0.00 Eosinophils # 0.9 H Eosinophils % 6.7 Globulin 2.90 Glucose Level 74 Hematocrit 31.5 L Hemoglobin 10.2 L Indirect Bilirubin 0.0 Lymphocytes # 2.7 Lymphocytes % 19.7 Magnesium Level 1.9 Mean Corpuscular Hemoglobin 27.8 L Mean Corpuscular Hemoglobin Concent 32.3 Mean Corpuscular Volume 86.1 Mean Platelet Volume 8.2 Monocytes # 1.0 H Monocytes % 7.6 Neutrophils # 8.8 H Neutrophils % 65.2 Nucleated Red Blood Cells # 0.0 Nucleated Red Blood Cells % 0.0 Platelet Count 293 Potassium Level 3.7 Red Blood Count 3.66 L Red Cell Distribution Width 16.4 H Sodium Level 133 L Total Bilirubin 0.0 L Total Protein 5.5 L White Blood Count 13.5 H Medications Medications Current Medications Ondansetron HCl (Zofran Inj) 4 mg Q6H PRN IV NAUSEA AND/OR VOMITING; Start 09/18 at 14:00 Acetaminophen (Tylenol Tab) 650 mg Q6H PRN PO PAIN LEVEL 1-3 OR FEVER Last administered on 09/22/16 22:20; Admin Dose 650 MG; Start 09/18/16 at 14:00 Pantoprazole (Protonix Tab) 40 mg DAILY@06 PO Last administered on 10/03/16 05 :52; Admin Dose 40 MG; Start 09/19/16 at 06:00 Heparin Sodium (Porcine) (Heparin (5000 Units/0.5 ml)) 5,000 unit Q12 SC Last administered on 10/03/16 08:37; Admin Dose 5,000 UNIT; Start 09/18/16 at 21:00 Tramadol HCl (Ultram) 50 mg BID PRN PO pain Last administered on 09/26/16 05: 10; Admin Dose 50 MG; Start 09/18/16 at 14:00 Cholecalciferol (Vitamin D) 1,000 unit DAILY PO Last administered on 10/03/16 08:13; Admin Dose 1,000 UNIT; Start 09/19/16 at 09:00 Loratadine (Claritin) 10 mg DAILY PO Last administered on 10/03/16 08:13; Admin Dose 10 MG; Start 09/19/16 at 09:00 Metoprolol Tartrate (Lopressor) 50 mg BID PO Last administered on 10/03/16 08: 12; Admin Dose 50 MG; Start 09/18/16 at 21:00 Sertraline HCl (Zoloft) 50 mg DAILY PO Last administered on 10/03/16 08:12; Admin Dose 50 MG; Start 09/19/16 at 09:00 Diagnostic Test (Pha) (Accucheck) 1 ea 02 XX Last administered on 10/01/16 01: 20; Admin Dose 1 EA; Start 09/19/16 at 02:00 Miscellaneous Information 1 ea NOTE XX ; Start 09/18/16 at 14:00 Glucose (Glutose) 15 gm Q15M PRN PO DECREASED GLUCOSE; Start 09/18/16 at 14:00 Glucose (Glutose) 22.5 gm Q15M PRN PO DECREASED GLUCOSE; Start 09/18/16 at 14:00 Dextrose (D50w Syringe) 25 ml Q15M PRN IV DECREASED GLUCOSE; Start 09/18/16 at 14:00 Dextrose (D50w Syringe) 50 ml Q15M PRN IV DECREASED GLUCOSE; Start 09/18/16 at 14:00 Glucagon (Glucagen) 1 mg Q15M PRN IM DECREASED GLUCOSE; Start 09/18/16 at 14:00 Glucose (Glutose) 15 gm Q15M PRN BUCCAL DECREASED GLUCOSE Last administered on 09/30/16 12:16; Admin Dose 15 GM; Start 09/18/16 at 14:00 Calcitriol (Rocaltrol) 0.25 mcg DAILY PO Last administered on 10/03/16 08:12; Admin Dose 0.25 MCG; Start 09/19/16 at 10:00 Nystatin (Nystatin Powder) 1 applic BID TOP Last administered on 10/03/16 08: 13; Admin Dose 1 APPLIC; Start 09/19/16 at 21:00 Levothyroxine Sodium (Synthroid) 75 mcg DAILY@06 PO Last administered on 05:52; Admin Dose 75 MCG; Start 09/21/16 at 06:00 Sodium Bicarbonate (Sodium Bicarbonate Tab) 650 mg TID PO Last administered on 10/03/16 08:12; Admin Dose 650 MG; Start 09/22/16 at 09:00 Vancomycin HCl (Vancomycin Oral Syringe) 250 mg Q6 PO Last administered on 10/03 05:52; Admin Dose 250 MG; Start 09/24/16 at 12:00 Lactobacillus Acidoph/Bulgaricus (Floranex) 1 tab TID PO Last administered on 08:13; Admin Dose 1 TAB; Start 09/24/16 at 13:00 Multivitamins/ Minerals (Theragran-M) 1 tab DAILY PO Last administered on 08:13; Admin Dose 1 TAB; Start 09/26/16 at 10:00 Escitalopram Oxalate 10 mg 10 mg DAILY PO Last administered on 10/03/16 08:13 ; Admin Dose 10 MG; Start 09/28/16 at 10:30 Metronidazole 100 ml @ 100 mls/hr Q8 IVPB Last administered on 10/03/16 05:50 ; Admin Dose 100 MLS/HR; Start 09/29/16 at 17:00 Daptomycin 250 mg/ Sodium Chloride 100 ml @ 200 mls/hr Q48H IVPB Last administered on 10/01/16 17:47; Admin Dose 200 MLS/HR; Start 10/01/16 at 18:00 ; Stop 10/04/16 at 17:59 Dextrose (D5W) 1,000 ml @ 50 mls/hr Q20H IV Last administered on 10/02/16 12: 14; Admin Dose 50 MLS/HR; Start 09/30/16 at 13:00 Lorazepam (Ativan) 0.25 mg Q4H PRN IV ANXIETY Last administered on 10/03/16 06 :56; Admin Dose 0.25 MG; Start 10/01/16 at 20:30 LUBNA CLEMENTE MD Oct 03, 2016 10:44
[2016-10-03] MEDS ORDERED: LOPERAMIDE 2 MG CAP PO PRN (11:30)
[2016-10-03] MEDS: CHOLESTYRAMINE 4 GM PACKET PO SCH ×2 (12:07→21:53)
[2016-10-03] MEDS: QUETIAPINE 25 MG TAB PO SCH ×2 (12:08→21:50)
[2016-10-03] MEDS: DEXTROSE 5% 1,000 ML IV SCH (13:41)
--- NOTE | 2016-10-03 13:56 | PN ---
DATE: 10/03/2016 SUBJECTIVE: No changes overnight. The patient is awake, confused, continues to have loose stools. No fevers. LABORATORY: WBC today 13.5, no shift, no bands. BUN 6, creatinine 1.30. ANTIMICROBIALS: 1. Flagyl. 2. Oral vancomycin. 3. Daptomycin. PHYSICAL EXAMINATION: GENERAL: Fragile, elderly woman who is awake, in no distress. HEENT: Head atraumatic, normocephalic. Sclerae anicteric. Buccal mucosa dry. NECK: Supple. CHEST: Rise symmetrical. Breath sounds clear, diminished at the bases. HEART: S1, S2. ABDOMEN: Soft, bowel tones present. EXTREMITIES: With trace edema. ASSESSMENT: 1. Clostridium difficile colitis without clinical improvement, although, repeat stool cultures came back negative for Clostridium difficile. 2. Recurrent bouts of urinary tract infection, completed treatment with cefepime for E. coli ESBL a nd completing treatment with daptomycin for VRE. 3. Dementia. 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 5. Diabetes. 6. History of urostomy. 7. Hypertension. PLAN: We are going to discontinue daptomycin, vancomycin and Flagyl. Start the patient on Dificid. Continue supportive care, IV hydration and management as per primary team. Dictated By: GIGI WADE ENGINE [employer]ILD[employer]IC for ANNITA LION/NTS Conf#: [id number] DID#: [id number]
[2016-10-03 19:30] VITALS: BP 164/67; RESP 16
[2016-10-03] MEDS: FIDAXOMICIN 200 MG TABLET PO SCH (21:50)
[2016-10-04] MEDS: ACCUCHECK XX SCH (02:00)
[2016-10-04] MEDS: LEVOTHYROXINE 75 MCG TAB PO SCH (05:44)
[2016-10-04 08:00] VITALS: BP 140/96; RESP 20
[2016-10-04] MEDS: INSULIN ASPART [NOVOLOG] 3 ML PEN SC SCH ×3 (08:00→17:45)
[2016-10-04 08:35] VITALS: BP 131/85; RESP 20
[2016-10-04] MEDS: NA BICARBONATE 650 MG TAB PO SCH ×2 (09:00→13:03)
[2016-10-04] MEDS: LACTOBACILLUS CHEW TAB PO SCH ×2 (09:00→13:02)
[2016-10-04] MEDS: CHOLESTYRAMINE 4 GM PACKET PO SCH ×2 (09:00→13:02)
--- NOTE | 2016-10-04 09:19 | PN ---
Date/Time of Note Date/Time of Note DATE: 10/04/16 TIME: 09:15 Assessment/Plan VTE Prophylaxis VTE Prophylaxis Intervention: other Lines/Catheters IV Catheter Type (from [facility]): Sal[facility] Lock Urinary Cath still in place: No Assessment/Plan Problems: (1) Functional diarrhea Status: Chronic Comment: This appears to be stable. Given the renal disease and offers us the opportunity to increase the PhosLo which will actually slow down the stools. Another option would be a do also add in his blood pressure medicine verapamil (2) Hypothyroidism Status: Chronic Comment: On replacement therapy Qualifiers: Hypothyroidism type: acquired Qualified Code: E03.9 - Acquired hypothyroidism (3) Essential (primary) hypertension Status: Chronic Comment: Fair control with the addition of the verapamil will help with (4) Mild cognitive disorder Status: Chronic Comment: Noted. 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 Comment: Adequate control Qualifiers: Chronic kidney disease stage: on chronic dialysis (6) Major depressive disorder, single episode, mild Status: Acute Comment: She is on medication Subjective 24 Hr Interval Summary Free Text/Dictation Patient sleeping in bed responds minimally Exam/Review of Systems Vital Signs Vitals Vital Signs Date Time Temp Pulse Resp B/P Pulse Ox O2 Delivery O2 Flow Rate FiO2 10/04/16 08:35 97.9 69 20 131/85 93 10/01/16 23:00 Room Air Intake and Output 10/03/16 10/03/16 10/04/16 15:00 23:00 07:00 Intake Total 700 ml 560 ml 750 ml Output Total 400 ml Balance 700 ml 560 ml 350 ml Exam Psych: depression ENMT: nl external ears & nose, nl lips & teeth, nl nasal mucosa & septum Neck: non-tender, supple Respiratory: clear to auscultation, normal air movement Cardiovascular: nl pulses, regular rate and rhythm Results Result Diagram: 10/03/16 0550 10/03/16 0550 Results 24 hrs Laboratory Tests Test 10/03/16 12:16 10/03/16 17:41 10/03/16 21:49 10/04/16 07:55 Bedside Glucose 117 156 136 91 Medications Medications Current Medications Ondansetron HCl (Zofran Inj) 4 mg Q6H PRN IV NAUSEA AND/OR VOMITING; Start 09/18 at 14:00 Acetaminophen (Tylenol Tab) 650 mg Q6H PRN PO PAIN LEVEL 1-3 OR FEVER Last administered on 09/22/16 22:20; Admin Dose 650 MG; Start 09/18/16 at 14:00 Heparin Sodium (Porcine) (Heparin (5000 Units/0.5 ml)) 5,000 unit Q12 SC Last administered on 10/03/16 22:53; Admin Dose 5,000 UNIT; Start 09/18/16 at 21:00 Tramadol HCl (Ultram) 50 mg BID PRN PO pain Last administered on 09/26/16 05: 10; Admin Dose 50 MG; Start 09/18/16 at 14:00 Cholecalciferol (Vitamin D) 1,000 unit DAILY PO Last administered on 10/03/16 08:13; Admin Dose 1,000 UNIT; Start 09/19/16 at 09:00 Loratadine (Claritin) 10 mg DAILY PO Last administered on 10/03/16 08:13; Admin Dose 10 MG; Start 09/19/16 at 09:00 Metoprolol Tartrate (Lopressor) 50 mg BID PO Last administered on 10/03/16 21: 54; Admin Dose 50 MG; Start 09/18/16 at 21:00 Sertraline HCl (Zoloft) 50 mg DAILY PO Last administered on 10/03/16 08:12; Admin Dose 50 MG; Start 09/19/16 at 09:00 Diagnostic Test (Pha) (Accucheck) 1 ea 02 XX Last administered on 10/01/16 01: 20; Admin Dose 1 EA; Start 09/19/16 at 02:00 Miscellaneous Information 1 ea NOTE XX ; Start 09/18/16 at 14:00 Glucose (Glutose) 15 gm Q15M PRN PO DECREASED GLUCOSE; Start 09/18/16 at 14:00 Glucose (Glutose) 22.5 gm Q15M PRN PO DECREASED GLUCOSE; Start 09/18/16 at 14:00 Dextrose (D50w Syringe) 25 ml Q15M PRN IV DECREASED GLUCOSE; Start 09/18/16 at 14:00 Dextrose (D50w Syringe) 50 ml Q15M PRN IV DECREASED GLUCOSE; Start 09/18/16 at 14:00 Glucagon (Glucagen) 1 mg Q15M PRN IM DECREASED GLUCOSE; Start 09/18/16 at 14:00 Glucose (Glutose) 15 gm Q15M PRN BUCCAL DECREASED GLUCOSE Last administered on 09/30/16 12:16; Admin Dose 15 GM; Start 09/18/16 at 14:00 Calcitriol (Rocaltrol) 0.25 mcg DAILY PO Last administered on 10/03/16 08:12; Admin Dose 0.25 MCG; Start 09/19/16 at 10:00 Nystatin (Nystatin Powder) 1 applic BID TOP Last administered on 10/03/16 21: 54; Admin Dose 1 APPLIC; Start 09/19/16 at 21:00 Levothyroxine Sodium (Synthroid) 75 mcg DAILY@06 PO Last administered on 05:44; Admin Dose 75 MCG; Start 09/21/16 at 06:00 Sodium Bicarbonate (Sodium Bicarbonate Tab) 650 mg TID PO Last administered on 10/03/16 21:50; Admin Dose 650 MG; Start 09/22/16 at 09:00 Lactobacillus Acidoph/Bulgaricus (Floranex) 1 tab TID PO Last administered on 21:50; Admin Dose 1 TAB; Start 09/24/16 at 13:00 Multivitamins/ Minerals (Theragran-M) 1 tab DAILY PO Last administered on 08:13; Admin Dose 1 TAB; Start 09/26/16 at 10:00 Escitalopram Oxalate 10 mg 10 mg DAILY PO Last administered on 10/03/16 08:13 ; Admin Dose 10 MG; Start 09/28/16 at 10:30 Dextrose (D5W) 1,000 ml @ 50 mls/hr Q20H IV Last administered on 10/03/16 13: 41; Admin Dose 50 MLS/HR; Start 09/30/16 at 13:00 Lorazepam (Ativan) 0.25 mg Q4H PRN IV ANXIETY Last administered on 10/03/16 13 :42; Admin Dose 0.25 MG; Start 10/01/16 at 20:30 Quetiapine Fumarate (Seroquel) 12.5 mg BID PO Last administered on 10/03/16 21 :50; Admin Dose 12.5 MG; Start 10/03/16 at 11:00 Cholestyramine Resin (Questran) 1 pkt TID PO Last administered on 10/03/16 21: 53; Admin Dose 1 PKT; Start 10/03/16 at 13:00 Fidaxomicin (Dificid) 200 mg BID PO Last administered on 10/03/16 21:50; Admin Dose 200 MG; Start 10/03/16 at 21:00 ILIANA ROWE MD Oct 04, 2016 09:19
[2016-10-04] MEDS ORDERED: VERAPAMIL (SR) 180 MG TAB PO SCH (09:30)
[2016-10-04] MEDS ORDERED: METOPROLOL 50 MG TAB PO SCH (09:30)
[2016-10-04] MEDS: CHOLECALCIFEROL 1,000 UNIT TAB PO SCH (13:02)
[2016-10-04] MEDS: FIDAXOMICIN 200 MG TABLET PO SCH (13:02)
[2016-10-04] MEDS: CALCITRIOL 0.25 MCG CAP PO SCH (13:02)
[2016-10-04] MEDS: QUETIAPINE 25 MG TAB PO SCH (13:02)
[2016-10-04] MEDS: LORATADINE 10 MG TAB PO SCH (13:03)
[2016-10-04] MEDS: ESCITALOPRAM 10 MG TAB PO SCH (13:03)
[2016-10-04] MEDS: MULTIVITAMINS/MINERALS TAB PO SCH (13:03)
[2016-10-04] MEDS: SERTRALINE 50 MG TAB PO SCH (13:03)
[2016-10-04] MEDS: CALCIUM ACETATE 667 MG CAP PO SCH ×2 (13:03→18:06)
[2016-10-04] MEDS: NYSTATIN 30 GM POWDER BTL TOP SCH (13:04)
[2016-10-04] MEDS: HEPARIN 5,000 UNIT/0.5 ML SYG SC SCH (13:07)
--- NOTE | 2016-10-04 14:56 | CONS ---
Date/Time of Note Date/Time of Note DATE: 10/04/16 TIME: 14:36 Assessment/Plan Assessment/Plan Chief Complaint/Hosp Course 1. acute renal failure superimposed on CKD , mostly due to dehydration, improved. No current labs 2. dementia. remains confused. 3. anemia of CKD 4. UTI , has been treated with cefepime. She now has vancomycin resistant enterococcus and is on daptomycin. . 5. anorexia , failure to thrive . 6. Plan to transfer to [facility] today Problems: Consultation Date/Type/Reason Admit Date/Time Sep 18, 2016 at 12:23 Initial Consult Date Type of Consultation: ID 24 HR Interval Summary Free Text/Dictation The patient is lethargic, confused. Nursing states this is her baseline Exam/Review of Systems Vital Signs Vitals Vital Signs Date Time Temp Pulse Resp B/P Pulse Ox O2 Delivery O2 Flow Rate FiO2 10/04/16 08:35 97.9 69 20 131/85 93 10/01/16 23:00 Room Air Intake and Output 10/03/16 10/03/16 10/04/16 15:00 23:00 07:00 Intake Total 700 ml 560 ml 750 ml Output Total 400 ml Balance 700 ml 560 ml 350 ml Exam Constitutional: No oriented Neck: supple Respiratory: clear to auscultation Cardiovascular: No edema Gastrointestinal: non-tender, soft Results Result Diagram: 10/03/16 0550 10/03/16 0550 Results 24 hrs Laboratory Tests Test 10/03/16 17:41 10/03/16 21:49 10/04/16 07:55 10/04/16 12:19 Bedside Glucose 156 136 91 117 Medications Medications Current Medications Ondansetron HCl (Zofran Inj) 4 mg Q6H PRN IV NAUSEA AND/OR VOMITING; Start 09/18 at 14:00 Acetaminophen (Tylenol Tab) 650 mg Q6H PRN PO PAIN LEVEL 1-3 OR FEVER Last administered on 09/22/16 22:20; Admin Dose 650 MG; Start 09/18/16 at 14:00 Heparin Sodium (Porcine) (Heparin (5000 Units/0.5 ml)) 5,000 unit Q12 SC Last administered on 10/04/16 13:07; Admin Dose 5,000 UNIT; Start 09/18/16 at 21:00 Tramadol HCl (Ultram) 50 mg BID PRN PO pain Last administered on 09/26/16 05: 10; Admin Dose 50 MG; Start 09/18/16 at 14:00 Cholecalciferol (Vitamin D) 1,000 unit DAILY PO Last administered on 10/04/16 13:02; Admin Dose 1,000 UNIT; Start 09/19/16 at 09:00 Loratadine (Claritin) 10 mg DAILY PO Last administered on 10/04/16 13:03; Admin Dose 10 MG; Start 09/19/16 at 09:00 Sertraline HCl (Zoloft) 50 mg DAILY PO Last administered on 10/04/16 13:03; Admin Dose 50 MG; Start 09/19/16 at 09:00 Diagnostic Test (Pha) (Accucheck) 1 ea 02 XX Last administered on 10/01/16 01: 20; Admin Dose 1 EA; Start 09/19/16 at 02:00 Miscellaneous Information 1 ea NOTE XX ; Start 09/18/16 at 14:00 Glucose (Glutose) 15 gm Q15M PRN PO DECREASED GLUCOSE; Start 09/18/16 at 14:00 Glucose (Glutose) 22.5 gm Q15M PRN PO DECREASED GLUCOSE; Start 09/18/16 at 14:00 Dextrose (D50w Syringe) 25 ml Q15M PRN IV DECREASED GLUCOSE; Start 09/18/16 at 14:00 Dextrose (D50w Syringe) 50 ml Q15M PRN IV DECREASED GLUCOSE; Start 09/18/16 at 14:00 Glucagon (Glucagen) 1 mg Q15M PRN IM DECREASED GLUCOSE; Start 09/18/16 at 14:00 Glucose (Glutose) 15 gm Q15M PRN BUCCAL DECREASED GLUCOSE Last administered on 09/30/16 12:16; Admin Dose 15 GM; Start 09/18/16 at 14:00 Calcitriol (Rocaltrol) 0.25 mcg DAILY PO Last administered on 10/04/16 13:02; Admin Dose 0.25 MCG; Start 09/19/16 at 10:00 Nystatin (Nystatin Powder) 1 applic BID TOP Last administered on 10/04/16 13: 04; Admin Dose 1 APPLIC; Start 09/19/16 at 21:00 Levothyroxine Sodium (Synthroid) 75 mcg DAILY@06 PO Last administered on 05:44; Admin Dose 75 MCG; Start 09/21/16 at 06:00 Sodium Bicarbonate (Sodium Bicarbonate Tab) 650 mg TID PO Last administered on 10/04/16 13:03; Admin Dose 650 MG; Start 09/22/16 at 09:00 Lactobacillus Acidoph/Bulgaricus (Floranex) 1 tab TID PO Last administered on 13:02; Admin Dose 1 TAB; Start 09/24/16 at 13:00 Multivitamins/ Minerals (Theragran-M) 1 tab DAILY PO Last administered on 13:03; Admin Dose 1 TAB; Start 09/26/16 at 10:00 Escitalopram Oxalate 10 mg 10 mg DAILY PO Last administered on 10/04/16 13:03 ; Admin Dose 10 MG; Start 09/28/16 at 10:30 Dextrose (D5W) 1,000 ml @ 50 mls/hr Q20H IV Last administered on 10/03/16 13: 41; Admin Dose 50 MLS/HR; Start 09/30/16 at 13:00 Lorazepam (Ativan) 0.25 mg Q4H PRN IV ANXIETY Last administered on 10/03/16 13 :42; Admin Dose 0.25 MG; Start 10/01/16 at 20:30 Quetiapine Fumarate (Seroquel) 12.5 mg BID PO Last administered on 10/04/16 13 :02; Admin Dose 12.5 MG; Start 10/03/16 at 11:00 Cholestyramine Resin (Questran) 1 pkt TID PO Last administered on 10/04/16 13: 02; Admin Dose 1 PKT; Start 10/03/16 at 13:00 Fidaxomicin (Dificid) 200 mg BID PO Last administered on 10/04/16 13:02; Admin Dose 200 MG; Start 10/03/16 at 21:00 Metoprolol Tartrate (Lopressor) 50 mg QAM PO Last administered on 10/04/16 13: 09; Admin Dose 50 MG; Start 10/04/16 at 09:30 Verapamil HCl (Isoptin Sr) 180 mg DAILY PO Last administered on 10/04/16 13:10 ; Admin Dose 180 MG; Start 10/04/16 at 09:30 HERBERTH CROSS MD Oct 04, 2016 14:48
--- NOTE | 2016-10-04 15:34 | PDOCDIS ---
Discharge Instructions DIAGNOSIS Discharge Diagnosis: Major Depressive disorder;diarrhea;obs;ckd2;htn; CONDITION Patient Condition: Fair HOME CARE INSTRUCTIONS: Special Diet: MECHANICAL SOFT ACTIVITY: Activity Restrictions: Slowly Increase Activity Do not Drive FOLLOW UP/APPOINTMENTS Appointments to [facility] and will follow there ILIANA ROWE MD Oct 04, 2016 15:34
[2016-10-04] MEDS ORDERED: CALC0.2511 PO (15:39)
[2016-10-04] MEDS ORDERED: LORA10TA3 PO (15:39)
[2016-10-04] MEDS ORDERED: FIDA200T PO (15:39)
[2016-10-04] MEDS ORDERED: SODI650T PO (15:39)
[2016-10-04] MEDS ORDERED: FLUCONAZOLE 100 MG/NS (PMX) 50 ML IVPB SCH (16:00)
[2016-10-04] MEDS ORDERED: FLUCONAZOLE 100 MG TAB PO ONE (17:00)
[2016-10-04] MEDS: DEXTROSE 5% 1,000 ML IV SCH (17:00)
--- NOTE | 2016-10-04 17:36 | CONS ---
Date/Time of Note Date/Time of Note DATE: 10/04/16 TIME: 17:33 Assessment/Plan Assessment/Plan Chief Complaint/Hosp Course SUBJECTIVE: No changes overnight. The patient is sleeping, no fevers, nad LABORATORY: WBC today 13.5, no shift, no bands. BUN 6, creatinine 1.30. ANTIMICROBIALS: Dificid, Diflucan PHYSICAL EXAMINATION: GENERAL: Fragile, elderly woman who is in no distress. HEENT: Head atraumatic, normocephalic. Sclerae anicteric. Buccal mucosa dry. NECK: Supple. CHEST: Rise symmetrical. Breath sounds clear, diminished at the bases. HEART: S1, S2. ABDOMEN: Soft, bowel tones present. EXTREMITIES: With trace edema. ASSESSMENT: 1. Clostridium difficile colitis without clinical improvement, although, repeat stool cultures came back negative for Clostridium difficile. 2. Recurrent bouts of urinary tract infection, completed treatment with cefepime for E. coli ESBL and completing treatment with daptomycin for VRE. 3. Dementia. 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 5. Diabetes. 6. History of urostomy. 7. Hypertension. PLAN: Clinically unchanged, started on Diflucan for presence of Mirian in her urine, continue Dificid, pending dc to [facility] staff Problems: Consultation Date/Type/Reason Admit Date/Time Sep 18, 2016 at 12:23 Type of Consultation: ID Exam/Review of Systems Vital Signs Vitals Vital Signs Date Time Temp Pulse Resp B/P Pulse Ox O2 Delivery O2 Flow Rate FiO2 10/04/16 08:35 97.9 69 20 131/85 93 10/01/16 23:00 Room Air Intake and Output 10/03/16 10/03/16 10/04/16 15:00 23:00 07:00 Intake Total 700 ml 560 ml 750 ml Output Total 400 ml Balance 700 ml 560 ml 350 ml Results Result Diagram: 10/03/16 0550 10/03/16 0550 Results 24 hrs Laboratory Tests Test 10/03/16 17:41 10/03/16 21:49 10/04/16 07:55 10/04/16 12:19 Bedside Glucose 156 136 91 117 Medications Medications Current Medications Ondansetron HCl (Zofran Inj) 4 mg Q6H PRN IV NAUSEA AND/OR VOMITING; Start 09/18 at 14:00 Acetaminophen (Tylenol Tab) 650 mg Q6H PRN PO PAIN LEVEL 1-3 OR FEVER Last administered on 09/22/16 22:20; Admin Dose 650 MG; Start 09/18/16 at 14:00 Heparin Sodium (Porcine) (Heparin (5000 Units/0.5 ml)) 5,000 unit Q12 SC Last administered on 10/04/16 13:07; Admin Dose 5,000 UNIT; Start 09/18/16 at 21:00 Tramadol HCl (Ultram) 50 mg BID PRN PO pain Last administered on 09/26/16 05: 10; Admin Dose 50 MG; Start 09/18/16 at 14:00 Cholecalciferol (Vitamin D) 1,000 unit DAILY PO Last administered on 10/04/16 13:02; Admin Dose 1,000 UNIT; Start 09/19/16 at 09:00 Loratadine (Claritin) 10 mg DAILY PO Last administered on 10/04/16 13:03; Admin Dose 10 MG; Start 09/19/16 at 09:00 Diagnostic Test (Pha) (Accucheck) 1 ea 02 XX Last administered on 10/01/16 01: 20; Admin Dose 1 EA; Start 09/19/16 at 02:00 Miscellaneous Information 1 ea NOTE XX ; Start 09/18/16 at 14:00 Glucose (Glutose) 15 gm Q15M PRN PO DECREASED GLUCOSE; Start 09/18/16 at 14:00 Glucose (Glutose) 22.5 gm Q15M PRN PO DECREASED GLUCOSE; Start 09/18/16 at 14:00 Dextrose (D50w Syringe) 25 ml Q15M PRN IV DECREASED GLUCOSE; Start 09/18/16 at 14:00 Dextrose (D50w Syringe) 50 ml Q15M PRN IV DECREASED GLUCOSE; Start 09/18/16 at 14:00 Glucagon (Glucagen) 1 mg Q15M PRN IM DECREASED GLUCOSE; Start 09/18/16 at 14:00 Glucose (Glutose) 15 gm Q15M PRN BUCCAL DECREASED GLUCOSE Last administered on 09/30/16 12:16; Admin Dose 15 GM; Start 09/18/16 at 14:00 Calcitriol (Rocaltrol) 0.25 mcg DAILY PO Last administered on 10/04/16 13:02; Admin Dose 0.25 MCG; Start 09/19/16 at 10:00 Nystatin (Nystatin Powder) 1 applic BID TOP Last administered on 10/04/16 13: 04; Admin Dose 1 APPLIC; Start 09/19/16 at 21:00 Levothyroxine Sodium (Synthroid) 75 mcg DAILY@06 PO Last administered on 05:44; Admin Dose 75 MCG; Start 09/21/16 at 06:00 Sodium Bicarbonate (Sodium Bicarbonate Tab) 650 mg TID PO Last administered on 10/04/16 13:03; Admin Dose 650 MG; Start 09/22/16 at 09:00 Lactobacillus Acidoph/Bulgaricus (Floranex) 1 tab TID PO Last administered on 13:02; Admin Dose 1 TAB; Start 09/24/16 at 13:00 Multivitamins/ Minerals (Theragran-M) 1 tab DAILY PO Last administered on 13:03; Admin Dose 1 TAB; Start 09/26/16 at 10:00 Escitalopram Oxalate 10 mg 10 mg DAILY PO Last administered on 10/04/16 13:03 ; Admin Dose 10 MG; Start 09/28/16 at 10:30 Dextrose (D5W) 1,000 ml @ 50 mls/hr Q20H IV Last administered on 10/03/16 13: 41; Admin Dose 50 MLS/HR; Start 09/30/16 at 13:00 Lorazepam (Ativan) 0.25 mg Q4H PRN IV ANXIETY Last administered on 10/03/16 13 :42; Admin Dose 0.25 MG; Start 10/01/16 at 20:30 Quetiapine Fumarate (Seroquel) 12.5 mg BID PO Last administered on 10/04/16 13 :02; Admin Dose 12.5 MG; Start 10/03/16 at 11:00 Cholestyramine Resin (Questran) 1 pkt TID PO Last administered on 10/04/16 13: 02; Admin Dose 1 PKT; Start 10/03/16 at 13:00 Fidaxomicin (Dificid) 200 mg BID PO Last administered on 10/04/16 13:02; Admin Dose 200 MG; Start 10/03/16 at 21:00 Metoprolol Tartrate (Lopressor) 50 mg QAM PO Last administered on 10/04/16 13: 09; Admin Dose 50 MG; Start 10/04/16 at 09:30 Verapamil HCl 180 mg 180 mg DAILY PO Last administered on 10/04/16 13:10; Admin Dose 180 MG; Start 10/04/16 at 09:30 Fluconazole/ Sodium Chloride (Diflucan 100 Mg/ NS (Pmx)) 50 ml @ 50 mls/hr Q24H IVPB ; Start 10/04/16 at 16:00 GIGI WADE NP Oct 04, 2016 17:36
== END 2016-10-04 19:48 | DRG 690 ==
LOC: MS2 12:23
PROVIDERS: ADMIT Internal Medicine; ATTEND Internal Medicine
DX: N30.10 Interstitial cystitis (chronic) without hematuria (principal); E87.0 Hyperosmolality and hypernatremia; E87.2 Acidosis; A04.7 Enterocolitis due to Clostridium difficile; N18.4 Chronic kidney disease, stage 4 (severe); N17.9 Acute kidney failure, unspecified; R63.0 Anorexia; E11.22 Type 2 diabetes mellitus with diabetic chronic kidney disease; F32.0 Major depressive disorder, single episode, mild; Z68.1 Body mass index [BMI] 19.9 or less, adult; B37.49 Other urogenital candidiasis; E86.0 Dehydration; B96.20 Unspecified Escherichia coli [E. coli] as the cause of diseases classified elsewhere; Z93.59 Other cystostomy status; Z91.81 History of falling; R41.82 Altered mental status, unspecified; T36.8X5A Adverse effect of other systemic antibiotics, initial encounter; Y92.239 Unspecified place in hospital as the place of occurrence of the external cause; E05.80 Other thyrotoxicosis without thyrotoxic crisis or storm; F09 Unspecified mental disorder due to known physiological condition; E87.6 Hypokalemia; D63.1 Anemia in chronic kidney disease; Z16.12 Extended spectrum beta lactamase (ESBL) resistance; B95.2 Enterococcus as the cause of diseases classified elsewhere; Z16.21 Resistance to vancomycin; I12.9 Hypertensive chronic kidney disease with stage 1 through stage 4 chronic kidney disease, or unspecified chronic kidney disease
CPT/HCPCS: 70450; 71010; 80048; 80053; 81001; 81003; 82550; 82553; 82607; 82728; 82962; 83540; 83735; 83970; 84100; 84132; 84439; 84443; 84481; 84484; 85025; 87075; 87086; 92526; 92610; 93005; 97110; 97116; 97163; 97530; J0692; J1450; J1815; J2060; J3475; J3480; J7070